=== PATIENT | female | born 1940 | race Caucasian/White ===

== ENCOUNTER → 2017-07-03 11:15 | Outpatient (CLI) | payer MEDICARE, SELFPAY ==
--- NOTE | 2017-07-03 11:18 | XR_ITS ---
XR foot wt bearing RT 3V HISTORY: Right foot pain ITS.REASON: arthritis,foot pain ORDERING PHYSICIAN: Lisa Smith DPM PATIENT AGE: 77 years COMPARISON: None FINDINGS: No fracture or dislocation. No lytic or blastic change. There is normal mineralization.. The joint spaces are well-preserved. No significant degenerative/arthritic changes. No erosive changes evident. Mild hypertrophic changes along the dorsal aspect of the midfoot . There are osteoarthritic changes of the navicular cuneiform and the second cuneiform metatarsal joint. IMPRESSION: Mid foot arthritic change
--- NOTE | 2017-07-03 11:18 | XR_ITS ---
XR foot wt bearing LT 3V HISTORY: ITS.REASON: arthritis, foot pain ORDERING PHYSICIAN: Lisa Smith DPM PATIENT AGE: 77 years FINDINGS: No obvious fracture or dislocation. There is mild cortical thickening involving the shaft of the fourth metatarsal which could be related to old fracture. Mild bony hypertrophic changes are present involving the mid foot with osteoarthritic change of the navicular cuneiform and tarsal metatarsal junction of the second cuneiform. There is mild pes planus IMPRESSION: 1. Cortical thickening of the fourth metatarsal consistent with old fracture. 2. 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
== END ==
PROVIDERS: PCP Family Medicine; Visit Provider Podiatrist
DX: M79.672 Pain in left foot (principal); M79.671 Pain in right foot
CPT/HCPCS: 73630

== ENCOUNTER → 2017-07-10 15:34 | Outpatient (CLI) | payer MEDICARE, SELFPAY ==
[2017-07-10 15:47] LABS: Microscopic, Urine URINE MICROSCOPIC (MICROSCOPIC)
[2017-07-10 15:58] LABS: Basophils % 0.6 % (0.1-2.0); Eosinophils # 0.2 K/mm3 (0.0-0.4); Eosinophils % 4.3 % (0.1-12.0); Hematocrit 39.9 % (37.0-47.0); Hemoglobin 13.5 g/dL (12.2-16.2); Lymphocytes # 1.7 K/mm3 (0.7-4.5); Lymphocytes % 30.8 K/mm3 (10-50); Mean Corpuscular HGB Conc 33.9 g/dL (31.8-35.4); Mean Corpuscular Hemoglobin 29.4 pg (27.0-31.2); Mean Corpuscular Volume 86.7 fl (81-99); Mean Platelet Volume 8.4 fl (7.4-10.4); Monocytes # 0.3 K/mm3 (0.1-1.0); Monocytes % 5.5 % (1.7-9.3); Neutrophils # 3.2 K/mm3 (1.8-7.8); Neutrophils % 58.8 % (37.0-80.0); Platelet Count 209 K/mm3 (142-424); Red Cell Distribution Width 13.5 % (11.5-17.5); White Blood Count 5.5 K/mm3 (4.8-10.8)
[2017-07-10 16:09] LABS: Activated Partial Thrombo Time 25.3 seconds (23.6-34.0); INR 0.97 (0.9-1.1); Prothrombin Time 10.5 seconds (9.4-11.8)
[2017-07-10 16:34] LABS: Appearance,Urine CLEAR (Clear); Bilirubin,Urine Negative (Negative); Blood, Urine Negative (Negative); Color,Urine YELLOW (Yellow); Glucose,Urine (UA) Negative (Negative); Ketones,Urine Negative (Negative); Leukocyte Esterase,Urine TRACE (Negative); Nitrate,Urine Negative (Negative); Protein,Urine Negative (Negative); Specific Gravity, Urine <= 1.005 (1.005-1.030); Urobilinogen,Urine 0.2 EU/dl (0.2)
[2017-07-10 16:37] LABS: Hemoglobin A1C 5.4 % (0.0-7.0)
[2017-07-10 16:57] LABS: Bacteria,Urine Trace /lpf; RBC,Urine Occasional #/hpf (0-3)
[2017-07-10 17:06] LABS: Anion Gap 12.2 mEq/L (5-15); Blood Urea Nitrogen 18 mg/dL (7-18); Carbon Dioxide 27 mmol/L (21.0-32.0); Chloride 107 mmol/L (98-107); Estimated Glomerular Filt Rate 69 ml/min (>60); GFR (African American) 84 ML/MIN (>60); Glucose 91 mg/dL (74-106); Potassium 4.2 mmoL/L (3.5-5.1); Sodium 142 mmol/L (136-145)
== END ==
PROVIDERS: PCP Family Medicine; Visit Provider Family Medicine
DX: Z79.899 Other long term (current) drug therapy; Z01.818 Encounter for other preprocedural examination
CPT/HCPCS: 36415; 80048; 81001; 83036; 85025; 85610; 85730; 93005

== ENCOUNTER → 2017-07-12 16:20 | Outpatient (CLI) | payer MEDICARE, SELFPAY ==
--- NOTE | 2017-07-12 16:29 | XR_ITS ---
XR chest 2V HISTORY: ITS.REASON: PRE OP ORDERING PHYSICIAN: Rene Noble MD PATIENT AGE: 77 years COMPARISON: 03/03/2008 FINDINGS: There is borderline cardiomegaly without failure. Lungs are clear. There are degenerative changes in the thoracic spine. IMPRESSION: Borderline cardiomegaly otherwise negative
== END ==
PROVIDERS: PCP Family Medicine; Visit Provider Family Medicine
DX: Z01.818 Encounter for other preprocedural examination (principal)
CPT/HCPCS: 71046

== ENCOUNTER → 2018-06-14 12:40 | Outpatient (CLI) | payer MEDICARE, SELFPAY ==
--- NOTE | 2018-06-14 12:45 | XR_ITS ---
XR hand LT min 3V HISTORY: Pain ITS.REASON: ap, lateral, oblique ORDERING PHYSICIAN: Lara Avery MD PATIENT AGE: 78 years COMPARISON: None FINDINGS: There are mild osteoarthritic changes at the scaphotrapezium joint and the first metacarpal carpal joint as well as the first interphalangeal joint. Minimal periarticular calcification is present laterally at these third metacarpophalangeal joint. No bony erosive process. No fracture or dislocation. IMPRESSION: Mild osteoarthritic changes as described above
--- NOTE | 2018-06-14 12:45 | XR_ITS ---
XR hand RT min 3V HISTORY: Pain ITS.REASON: AP, lateral, oblique ORDERING PHYSICIAN: Lara Avery MD PATIENT AGE: 78 years COMPARISON: None FINDINGS: Osteoarthritic change involves the scaphotrapezium joint, first metacarpal carpal joint, first metacarpophalangeal joint, first interphalangeal joint, second DIP and second metacarpophalangeal joint. No erosive change. No fracture or dislocation. IMPRESSION: Mild osteoarthritis
== END ==
PROVIDERS: PCP Family Medicine; Visit Provider Orthopaedic Surgery
DX: M79.641 Pain in right hand (principal); M79.642 Pain in left hand
CPT/HCPCS: 73130

== ENCOUNTER 2018-08-02 17:13 | Observation (INO) ==
--- NOTE | 2018-08-02 17:32 | Emergency Department Note ---
ED Disposition Clinical Impression: Chest pain Qualifiers: Chest pain type: precordial pain Qualified Code(s): R07.2 - Precordial pain Disposition: Admitted as Observation Condition on Discharge: Good Referrals: Provider,Referral, [Referring] - - Critical Care Critical Care Time: No Attestation: On 08/02/18, the high probability of a clinically significant, sudden or life threatening deterioration of the following system(s) required my full and direct attention, intervention and personal management. The time I documented below is in addition to time spent performing reported procedures but includes the following listed in this critical care notation. Medical Decision Making - Medical Records Medical records reviewed: Yes: I reviewed the patient's medical records. - Sergio Inquiry Pt receiving controlled substance: No Vital Signs: 08/02/18 17:13 08/02/18 17:35 08/02/18 18:02 Temperature 99.2 F Temperature Source Oral Pulse Rate 84 Pulse Rate [Apical] 90 87 Respiratory Rate 18 Blood Pressure [Right Arm] 128/77 128/77 Blood Pressure Mean [Right Arm] 94 94 Blood Pressure Source [Right Arm] Automatic Cuff Automatic Cuff Blood Pressure Position [Right Arm] Sitting Sitting 02 Sat by Pulse Oximetry 97 95 Oxygen Delivery Method Room Air Room Air 08/02/18 19:49 Temperature Temperature Source Pulse Rate Pulse Rate [Apical] 80 Respiratory Rate 20 Blood Pressure [Right Arm] 98/55 L Blood Pressure Mean [Right Arm] 69 Blood Pressure Source [Right Arm] Automatic Cuff Blood Pressure Position [Right Arm] Sitting 02 Sat by Pulse Oximetry 97 Oxygen Delivery Method - Lab Data Lab results reviewed: Yes: I reviewed the patient's lab results. Lab Results 08/02/18 17:30: WBC 6.1, RBC 4.16 L, Hgb 12.3, Hct 35.1 L, MCV 84.4, MCH 29.7, MCHC 35.1, RDW 14.6, Plt Count 213, MPV 8.2, Neut % (Auto) 65.5, Lymph % (Auto) 24.7, [place] % (Auto) 5.8, Eos % (Auto) 3.9, Baso % (Auto) 0.1, Neut # (Auto) 4.0, Lymph # (Auto) 1.5, [place] # (Auto) 0.4, Eos # (Auto) 0.2, Baso # (Auto) 0.0 08/02/18 17:30: Sodium 141, Potassium 3.5, Chloride 105, Carbon Dioxide 26, Anion Gap 13.5, BUN 25 H, Creatinine 1.10 H, Estimated Creat Clear 46, Estimated GFR 48 L, Est GFR ( Amer) 58 L, Glucose 132 H, Calcium 8.4 L, Troponin I < 0.02 08/02/18 17:30: D-Dimer 572 H* 08/02/18 17:30: Lipase 236 08/02/18 18:00: Urine Color Yellow, Urine Appearance Clear, Urine pH 6.0, Ur Specific [place] <= 1.005, Urine Protein Negative, Urine Glucose (UA) Negative, Urine Ketones Negative, Urine Blood Negative, Urine Nitrate Negative, Urine Bilirubin Negative, Urine Urobilinogen 0.2, Ur Leukocyte Esterase Trace, Urine WBC 3-5, Ur Squamous Epith Cells 3-5, Amorphous Sediment Trace 08/02/18 18:09: Lactate 1.2 Result diagrams: 08/02/18 17:30 08/02/18 17:30 Orders (Tests/Meds): ED MEDICATIONS Generic Name Dose Route Start Last Admin Trade Name Freq PRN Reason Stop Dose Admin Sodium Chloride 1,000 mls @ 999 mls/hr 08/02/18 18:30 08/02/18 18:53 Sod Chlor 0.9% 1000ml Bag IV 08/02/18 19:30 999 mls/hr .[id number] GERONIMO Administration Discontinued Medications Generic Name Dose Route Start Last Admin Trade Name Freq PRN Reason Stop Dose Admin Albuterol/Ipratropium 3 ml 08/02/18 17:33 08/02/18 17:44 Duoneb 3ml Neb IH 08/02/18 17:34 3 ml ONCE ONE Administration Ioversol 70 ml 08/02/18 19:09 08/02/18 19:10 Rad-Optiray 350 100ml Vial IV 08/02/18 19:10 70 ml ONCE ONE Administration Protocol Sodium Chloride 40 ml 08/02/18 19:09 08/02/18 19:10 Rad-Ns 50ml Vial IV 08/02/18 19:10 40 ml ONCE ONE Administration Sodium Chloride 10 ml 08/02/18 19:09 08/02/18 19:10 Rad-Saline Flush 10ml Syringe IV 08/02/18 19:10 10 ml ONCE ONE Administration ORDERS Category Date Time Status CTA Chest [CT angio chest] Stat Cat Scan 08/02/18 18:25 Taken Blood Culture Stat Micro 08/02/18 18:15 Received - CT Data CT Scan: Chest Time Received: 19:55 (no pe) ED CT Reviewed: Yes: I have viewed the radiologist's interpretation Preliminary Findings: No Infiltrates Seen - ECG Data Tracing #1 I reviewed this ECG and interpreted as documented below: Normal Sinus Rhythm: Yes (no stemi) Medical Decision Narrative: care to Dr Decker at 20:00, admit d/w Dr Albrecht for Hector at 20:00 General Adult HPI - General Chief complaint: Shortness of Breath/Dyspnea Stated complaint: weakness, cough, SOA Time Seen by Provider: 08/02/18 17:29 Mode of Arrival: Ambulatory Source of Information: Patient Limitations: No Limitations Description of Symptoms (Recalled from ER Triage Doc. by RN): Pt reports dry cough, "hard to breathe", chest pressure and weakness x2 days. Pt reports cough is non-productive, denies fever. - History of Present Illness HPI narrative: mild to mod off and on short of breath and cough for 2 days w/ chest pain pressure nonrad, no fever, no injury, no hx [place] - Related Data Home Medications Medication Instructions Recorded Confirmed amlodipine 10 mg tablet 10 mg PO DAILY 90 Days 07/03/17 08/02/18 celecoxib 200 mg capsule 200 mg PO DAILY 90 Days 07/03/17 08/02/18 lisinopril 20 mg tablet 20 mg PO DAILY 90 Days 07/03/17 08/02/18 Sucralfate [Sucralfate 1gm 1 gm PO ACHS 08/02/18 08/02/18 Tab] Allergies Allergy/AdvReac Type Severity Reaction Status Date / Time No Known Allergies Allergy Verified 06/14/18 13:09 [facility] History - Hepatitis A Screen Drug use history?: No High risk sexual behaviors?: No History of sexually transmitted infection?: No Currently employed?: No Childcare worker?: No Do you have indoor plumbing?: Yes Do you have electricity?: Yes Attestation statement:: This patient has been screened for Hepatitis A risk factors. Medical History: Reports:: Hypertension Denies:: Asthma, Cancer, Chronic Obstructive Pulmonary Disease (COPD), Diabetes Mellitus Type 1, Diabetes Mellitus Type 2, Hyperlipidemia Laterality Cases: Right: Partial Knee Replacement Other Surgeries: Yes: Cancer Surgery, Other Amputation: No Fractures: No Comment: Left foot, cyst from spine removed - Social History Smoking Status: Never smoker # Packs/Day (cigarettes): 0 #Yrs smoked (if former smoker): 0 Alcohol Intake: never Alcohol Intake Frequency:: other Substance Use Type: denies use Occupational Status: retired Housing: house Household Members: spouse - Psychiatric History Expresses thoughts of harming self/others: None Suicide Plan Description: No Plan Family Hx:: Cancer, Diabetes ROS Obtained: Yes Systems reviewed as appropriate & no additional complaints - Constitutional Constitutional: Denies fever(s) - Eyes Eyes: Denies change in vision - ENT Ears, Nose, Mouth, and Throat: Denies nasal congestion - Cardiovascular Cardiovascular: Reports chest pain - Respiratory Respiratory: Yes cough, Yes dyspnea - Gastrointestinal Gastrointestingal: Denies: abdominal pain - Musculoskeletal Musculoskeletal: Denies back pain - Integumentary/Breasts Skin/Breast: Denies rash - Neurologic Neurologic: Denies dizziness Physical Exam - General General appearance: alert - Head Head exam: atraumatic - Eye Eye exam: Present: normal appearance - ENT ENT exam: Present: normal exam - Neck Neck exam: Present: normal inspection - Chest Chest inspection: Present: normal inspection - Respiratory Respiratory exam: Present: wheezes. Absent: stridor - Cardiovascular Cardiovascular exam: Present: regular rate, normal rhythm - Abdominal Exam Abdominal exam: Present: soft. Absent: tenderness - Extremities Exam Extremities exam: Absent: pedal edema - Back Exam Back exam: Absent: vertebral tenderness - Neurological Exam Neurological exam: Present: alert, oriented X3 - Psychiatric Psychiatric exam: Present: normal affect, normal mood - Skin Skin exam: Present: warm, dry
[2018-08-02 17:47] LABS: Basophils % 0.1 % (0.1-2.0); Eosinophils # 0.2 K/mm3 (0.0-0.4); Eosinophils % 3.9 % (0.1-12.0); Hematocrit 35.1 % (37.0-47.0); Hemoglobin 12.3 g/dL (12.2-16.2); Lymphocytes # 1.5 K/mm3 (0.7-4.5); Lymphocytes % 24.7 % (10-50); Mean Corpuscular HGB Conc 35.1 g/dL (31.8-35.4); Mean Corpuscular Hemoglobin 29.7 pg (27.0-31.2); Mean Corpuscular Volume 84.4 fl (81-99); Mean Platelet Volume 8.2 fl (7.4-10.4); Monocytes # 0.4 K/mm3 (0.1-1.0); Monocytes % 5.8 % (1.7-9.3); Neutrophils % 65.5 % (37.0-80.0); Platelet Count 213 K/mm3 (142-424); Red Blood Count 4.16 M/mm3 (4.20-5.40); Red Cell Distribution Width 14.6 % (11.5-17.5); White Blood Count 6.1 K/mm3 (4.8-10.8)
[2018-08-02 18:01] LABS: Anion Gap 13.5 mEq/L (5-15); Blood Urea Nitrogen 25 mg/dL (7-18); Calcium 8.4 mg/dL (8.5-10.1); Carbon Dioxide 26 mmol/L (21.0-32.0); Chloride 105 mmol/L (98-107); Glucose 132 mg/dL (74-106); Potassium 3.5 mmoL/L (3.5-5.1); Sodium 141 mmol/L (136-145)
[2018-08-02 19:26] LABS: Microscopic, Urine URINE MICROSCOPIC (MICROSCOPIC)
[2018-08-02 19:32] LABS: Appearance,Urine CLEAR (Clear); Bilirubin,Urine Negative (Negative); Blood, Urine Negative (Negative); Color,Urine YELLOW (Yellow); Glucose,Urine (UA) Negative (Negative); Ketones,Urine Negative (Negative); Leukocyte Esterase,Urine TRACE (Negative); Protein,Urine Negative (Negative); Specific Gravity, Urine <= 1.005 (1.005-1.030); Urobilinogen,Urine 0.2 EU/dl (0.2)
[2018-08-02 19:35] LABS: Amorphous Sediment,Urine Trace /lpf
[2018-08-03 06:48] LABS: Basophils % 0.1 % (0.1-2.0); Eosinophils # 0.2 K/mm3 (0.0-0.4); Eosinophils % 5.8 % (0.1-12.0); Hematocrit 31.5 % (37.0-47.0); Lymphocytes # 1.1 K/mm3 (0.7-4.5); Lymphocytes % 32.8 % (10-50); Mean Corpuscular HGB Conc 34.6 g/dL (31.8-35.4); Mean Corpuscular Hemoglobin 29.4 pg (27.0-31.2); Mean Platelet Volume 8.3 fl (7.4-10.4); Monocytes # 0.2 K/mm3 (0.1-1.0); Monocytes % 6.7 % (1.7-9.3); Neutrophils # 1.8 K/mm3 (1.8-7.8); Neutrophils % 54.7 % (37.0-80.0); Platelet Count 183 K/mm3 (142-424); Red Cell Distribution Width 14.7 % (11.5-17.5); White Blood Count 3.2 K/mm3 (4.8-10.8)
[2018-08-03 06:51] LABS: Anion Gap 13.7 mEq/L (5-15); Calcium 7.8 mg/dL (8.5-10.1); Potassium 3.7 mmoL/L (3.5-5.1)
--- NOTE | 2018-08-03 08:58 | Pharmacy Consult Notes ---
[facility] Pharm[facility] VTE Monitoring - Patient Demographics Admission date: 08/02/18 Report Date: 08/03/18 Time: 08:58 Allergies/Adverse Reactions: Patient Allergies No Known Allergies Allergy (Verified 06/14/18 13:09) Height: 1.52 m Weight: 71.668 kg Patient Problems: Current Active Problems (Updated 08/02/18 @ 19:57 by Fazal Damon MD) Chest pain (Acute) - VTE Risk Labs: VTE Related Lab Results Hgb 11.0 g/dL (12.2-16.2) L D 08/03/18 06:18 Hct 31.5 % (37.0-47.0) L 08/03/18 06:18 Plt Count 183 K/mm3 (142-424) 08/03/18 06:18 BUN 15 mg/dL (7-18) D 08/03/18 06:18 Creatinine 0.73 mg/dL (0.55-1.02) D 08/03/18 06:18 Estimated Creat Clear 51 mL/min (50-200) 08/03/18 06:18 Was VTE Risk Assessment Performed: Yes VTE Score: 5 VTE Risk Level: Low Risk - Prophylaxis VTE Prophylaxis Ordered?: Yes Types of VTE Prophylaxis: TEDS Knee High Location of Applied Device: Bilateral Lower Extremeties
--- NOTE | 2018-08-03 10:23 | H&P/Discharge Summary ---
General - General Admission date:: 08/02/18 Discharge date: 08/03/18 *Admission Date: 08/02/18 *Chief complaint: chest pain *History of present illness: 78 year old female with a history of HTN and GERD, came to [facility] ER yesterday afternoon with complaints of anterior chest pain and racing heart. Patient states she spent the day pulling weeds in her garden and got hot and felt dehydrated. She had chest pain associated with some palpitations. She states the pain was not related to exertion but was always worse when she exhaled. She dis have a dry cough and felt like she wheezed a few times. She does have a hi story of allergic rhinitis and had taken an OTC antihistamine the day before due to some nasal congestion. She denies fever and chills and lower extremity edema. [facility] History Medical History: Reports:: Gastroesophageal Reflux Disease(GERD), Hypertension Denies:: Asthma, Cancer, Chronic Obstructive Pulmonary Disease (COPD), Diabetes Mellitus Type 1, Diabetes Mellitus Type 2, Hyperlipidemia, MRSA *Have you ever received a pneumonia vaccine?: No *Have you received a flu vaccine this season?: Yes Other Medical History: Reports: Arthritis (knee), Other (peptic ulcer disease) Laterality Cases: Right: Partial Knee Replacement Other Surgeries: Yes: Cancer Surgery, Colonoscopy, Tubal Ligation, Other (L FOOT SX TO REMOVE "BONE SPURS") Amputation: No Fractures: No - *Social History Educational Level: Completed High School Smoking Status: Never smoker # Packs/Day (cigarettes): 0 #Yrs smoked (if former smoker): 0 Alcohol Intake: never Alcohol Intake Frequency:: other Substance Use Type: denies use *Occupational Status:: retired Housing: house Household Members: spouse *Travel in the last 8 weeks: None - Psychiatric History Expresses thoughts of harming self/others: None Suicide Plan Description: No Plan Family Hx:: Cancer, Diabetes Review of Systems - Constitutional Denies chills, Denies fever(s) - Eyes Denies blurry vision - ENT Reports nasal congestion - *Gastrointestinal Denies abdominal pain - *Genitourinary Denies painful urination - *Musculoskeletal Reports muscle cramps, Denies back pain - Integumentary/Breasts Denies rash - *Neurologic Denies dizziness - Psychiatric Denies abnormal sleep pattern - Hematologic/Lymphatic Denies easy bleeding Exam Vital signs and Labs for Last 24 Hours: Temp Pulse Resp BP Pulse Ox 98.2 F 74 20 134/65 95 08/03/18 08:00 08/03/18 08:00 08/03/18 08:00 08/03/18 08:00 08/03/18 08:00 Laboratory Results - last 24 hr 08/02/18 17:30: WBC 6.1, RBC 4.16 L, Hgb 12.3, Hct 35.1 L, MCV 84.4, MCH 29.7, MCHC 35.1, RDW 14.6, Plt Count 213, MPV 8.2, Neut % (Auto) 65.5, Lymph % (Auto) 24.7, [place] % (Auto) 5.8, Eos % (Auto) 3.9, Baso % (Auto) 0.1, Neut # (Auto) 4.0, Lymph # (Auto) 1.5, [place] # (Auto) 0.4, Eos # (Auto) 0.2, Baso # (Auto) 0.0 08/02/18 17:30: Sodium 141, Potassium 3.5, Chloride 105, Carbon Dioxide 26, Anion Gap 13.5, BUN 25 H, Creatinine 1.10 H, Estimated Creat Clear 46, Estimated GFR 48 L, Est GFR ( Amer) 58 L, Glucose 132 H, Calcium 8.4 L, Troponin I < 0.02 08/02/18 17:30: D-Dimer 572 H* 08/02/18 17:30: Lipase 236 08/02/18 18:00: Urine Color Yellow, Urine Appearance Clear, Urine pH 6.0, Ur Specific [place] <= 1.005, Urine Protein Negative, Urine Glucose (UA) Negative, Urine Ketones Negative, Urine Blood Negative, Urine Nitrate Negative, Urine Bilirubin Negative, Urine Urobilinogen 0.2, Ur Leukocyte Esterase Trace, Urine WBC 3-5, Ur Squamous Epith Cells 3-5, Amorphous Sediment Trace 08/02/18 18:09: Lactate 1.2 08/02/18 22:48: Troponin I < 0.02 08/03/18 01:45: Troponin I < 0.02 08/03/18 06:18: WBC 3.2 L D, RBC 3.70 L, Hgb 11.0 L D, Hct 31.5 L, MCV 85.0, MCH 29.4, MCHC 34.6, RDW 14.7, Plt Count 183, MPV 8.3, Neut % (Auto) 54.7, Lymph % (Auto) 32.8, [place] % (Auto) 6.7, Eos % (Auto) 5.8, Baso % (Auto) 0.1, Neut # (Auto) 1.8, Lymph # (Auto) 1.1, [place] # (Auto) 0.2, Eos # (Auto) 0.2, Baso # (Auto) 0.0 08/03/18 06:18: Sodium 144, Potassium 3.7, Chloride 110 H, Carbon Dioxide 24, Anion Gap 13.7, BUN 15 D, Creatinine 0.73 D, Estimated Creat Clear 51, Estimated GFR 77, Est GFR ( Amer) 93 D, Glucose 89 D, Calcium 7.8 L Vital Signs - 24 hr 08/02/18 17:13 08/02/18 17:35 08/02/18 18:02 Temperature 99.2 F Pulse Rate 84 Pulse Rate [Apical] 90 87 Pulse Rate [Left Radial] Respiratory Rate 18 Blood Pressure Blood Pressure [Right Arm] 128/77 128/77 02 Sat by Pulse Oximetry 97 95 08/02/18 19:49 08/02/18 21:00 08/02/18 21:43 Temperature 98.0 F 98.1 F Pulse Rate Pulse Rate [Apical] 80 67 Pulse Rate [Left Radial] 69 Respiratory Rate 20 18 18 Blood Pressure Blood Pressure [Right Arm] 98/55 L 130/75 129/68 02 Sat by Pulse Oximetry 97 97 95 08/02/18 21:46 08/02/18 21:53 08/03/18 00:00 Temperature 98.0 F 98.3 F Pulse Rate 86 100 H 80 Pulse Rate [Apical] Pulse Rate [Left Radial] 73 Respiratory Rate 16 18 Blood Pressure 126/74 Blood Pressure [Right Arm] 107/52 L 02 Sat by Pulse Oximetry 96 08/03/18 04:00 08/03/18 08:00 Temperature 97.8 F 98.2 F Pulse Rate 50 L Pulse Rate [Apical] Pulse Rate [Left Radial] 65 74 Respiratory Rate 18 20 Blood Pressure Blood Pressure [Right Arm] 132/59 L 134/65 02 Sat by Pulse Oximetry 96 95 I & O for Last 24 hours: Intake & Output 07/31/18 08/01/18 08/02/18 08/03/18 23:59 23:59 23:59 23:59 Intake Total 999 / 999 557 / 557 Balance 999 / 999 557 / 557 Weight 157 lb 4 oz 158 lb Radiology Reports for the Last 24 Hours: CXR and CTA of chest reviewed, no acute pathology noted - Constitutional no acute distress - *Routine HEENT Exam Head: Present: normocephalic Eye: Present: EOMI, PERRL ENT: Present: mucous membranes moist - *Routine Neck Exam Present: supple. Absent: lymphadenopathy - *Routine Respiratory Exam Present: CTA bilaterally - *Routine Cardiovascular Exam Present: RRR - *Routine Abdominal Exam Present: soft, normoactive bowel sounds. Absent: tenderness - *Routine Extremities Exam Absent: cyanosis, clubbing, edema - *Routine Skin Exam Present: warm. Absent: rash - *Routine Neurological Exam Present: alert, oriented X3 Hospital Course Hospital Course: Patient was admitted for further evaluation of her chest pain. She ruled out for DC by enzymes. CTA of chest showed no PE or other chest pathology. Her symptoms actually improved after a neb treatment. She is tolerating a regular diet and is pain free now and is anxious to go home. Plan to treat her with albuterol as an outpatient. Patient will call with any new symptoms prior to her scheduled appt. on August 20. DS: Diagnosis - Discharge Diagnosis (1) Dehydration Status: Acute (2) HTN (hypertension) Status: Acute (3) GERD (gastroesophageal reflux disease) Status: Acute (4) Bronchospasm Status: Acute (5) Chest pain Status: Acute Discharge Medications - Medications for Discharge Home Medication List at Discharge: New Albuterol Sulfate [Albuterol HFA Inhaler] 1 - 2 puffs IH Q4-6H PRN #1 inh PRN Reason: Shortness Of Breath Or Wheezing Continued lisinopril 20 mg tablet 20 mg PO DAILY 90 Days celecoxib 200 mg capsule 200 mg PO DAILY 90 Days amlodipine 10 mg tablet 10 mg PO DAILY 90 Days Sucralfate [Sucralfate 1gm Tab] 1 gm PO ACHS Warren-3/Dha/Epa/Fish Oil [Fish Oil Conc 1,000 mg Softgel] 2,000 mg PO DAILY Disposition Disposition: Home, Self-Care
== END 2018-08-03 11:00 | disposition home or self-care (01) ==
LOC: 2ND 17:13 → ER 17:13 → 2ND 21:49
PROVIDERS: ADMIT Family Medicine; ATTEND Family Medicine
DX: I10 Essential (primary) hypertension; J98.01 Acute bronchospasm; E86.0 Dehydration; K21.9 Gastro-esophageal reflux disease without esophagitis
CPT/HCPCS: 36415; 71010; 71045; 71275; 80048; 81001; 83605; 83690; 84484; 85025; 85378; 87040; 93005; 96365; 99284; G0378; Q9967

== ENCOUNTER → 2018-11-19 15:02 | Outpatient (CLI) | payer MEDICARE, SELFPAY ==
--- NOTE | 2018-11-19 15:07 | XR_ITS ---
PROCEDURE: XR SHOULDER RT MIN 2V CLINICAL INDICATION: RT SHOULDER PAIN COMPARISON: [facility] CT angio chest from 08/02/2018 FINDINGS: The glenohumeral joint has an unremarkable appearance. There are mild osteoarthritic changes of the acromioclavicular joint. No fracture or dislocation. No significant subacromial stenosis. IMPRESSION: Mild degenerative changes acromioclavicular joint otherwise negative Dictated by: Db Welsh MD 11/19/2018 15:32 Electronically signed by Db Welsh MD in [place] 11/19/2018 15:33
== END ==
PROVIDERS: PCP Family Medicine; Visit Provider Family Medicine
DX: M25.511 Pain in right shoulder (principal)
CPT/HCPCS: 73030

== ENCOUNTER → 2019-01-08 14:03 | Outpatient (CLI) | payer MEDICARE, SELFPAY ==
--- NOTE | 2019-01-08 14:04 | MR_ITS ---
PROCEDURE: MR SHOULDER RT WO CON CLINICAL INDICATION: RIGHT SHOULDER PAIN COMPARISON: XR SHOULDER RT MIN 2V from 11/19/2018 TECHNIQUE: Routine multiplanar multi echo sequences are performed without gadolinium enhancement. FINDINGS: There is moderate acromioclavicular arthropathy. No significant subacromial stenosis. Fluid is present in the subacromial and subdeltoid region. There is a complete tear involving the supraspinatus tendon distally with mild retraction of the musculotendinous fibers. Partial tear is present of the infraspinatus tendon. There are some intact fibers however present. The teres minor and subscapularis tendons are unremarkable. No labral tear apparent. There is a medium size shoulder joint effusion. There is fluid present in the bicipital tendon sheath. A normal long head of the biceps tendon is not identified. A normal bicipital tendon is not identified consistent with tear of the bicipital tendon. IMPRESSION: 1. Complete tear of the supraspinatus tendon with retraction of the musculotendinous fibers. 2. Partial tear of the infraspinatus tendon. 3. Empty bicipital tendon sheath consistent with tear of the bicipital tendon 4. Shoulder joint effusion with osteoarthritis of the acromioclavicular joint. Dictated by: Db Welsh MD 01/10/2019 11:36 Electronically signed by Db Welsh MD in [place] 01/10/2019 11:36
== END ==
PROVIDERS: PCP Family Medicine; Visit Provider Family Medicine
DX: M25.511 Pain in right shoulder (principal)
CPT/HCPCS: 73221

== ENCOUNTER → 2019-01-21 10:57 | Outpatient (POV) | payer MEDICARE, SELFPAY | PROVIDERS: Visit Provider Otolaryngology | DX: Z00.00 Encounter for general adult medical examination without abnormal findings (principal) ==

== ENCOUNTER → 2019-09-15 16:05 | Outpatient (CLI) | payer MEDICARE, SELFPAY ==
--- NOTE | 2019-09-15 | XR_ITS ---
PROCEDURE: XR LUMBAR SPINE MIN 4V CLINICAL INDICATION: LOW BACK PAIN COMPARISON: [facility] CT angio chest from 08/02/2018 FINDINGS: There is degenerative disc disease the at T12-L1 and L1-L2. There is 6 mm anterolisthesis of L4 on L5. Degenerative disc disease also present at L3-L4 and L4-5 and L5-S1. 3 mm anterolisthesis L5 on S1. Facet arthritic changes are present at L4-L5 and S1. No definite acute fracture or dislocation. IMPRESSION: Multilevel lower thoracic and lumbar spondylosis as detailed above Dictated by: Db Welsh MD 09/15/2019 16:49 Electronically signed by Db Welsh MD in [place] 09/15/2019 16:49
== END ==
PROVIDERS: PCP Family Medicine; Visit Provider Family Medicine
DX: M54.5 Low back pain (principal)
CPT/HCPCS: 72110

== ENCOUNTER → 2019-09-25 08:38 | Outpatient (CLI) | payer MEDICARE, SELFPAY ==
--- NOTE | 2019-09-25 08:44 | US_ITS ---
PROCEDURE: US ABDOMEN LIMITED CLINICAL INDICATION: ABD PAIN Right upper quadrant pain COMPARISON: No exams were available for comparison FINDINGS: PANCREAS: Unremarkable. No obvious mass or abnormal fluid collection. No ductal dilatation LIVER: No focal liver lesions demonstrated. Homogeneous echogenicity. No intrahepatic biliary ductal dilatation evident. There is appropriate direction of blood flow within a non dilated portal vein RIGHT KIDNEY: 2.6 cm cyst noted in the mid aspect of the right kidney normal size and echogenicity. No hydronephrosis GALLBLADDER: No gallstones, gallbladder wall thickening, pericholecystic fluid, or biliary dilatation. Common bile duct measures 3 mm IMPRESSION: Small right renal cyst otherwise unremarkable right upper quadrant ultrasound Dictated by: Db Welsh MD 09/25/2019 16:55 Electronically signed by Db Welsh MD in [place] 09/25/2019 16:55
== END ==
PROVIDERS: PCP Family Medicine; Visit Provider Family Medicine
DX: R10.11 Right upper quadrant pain (principal)
CPT/HCPCS: 76705

== ENCOUNTER → 2019-10-02 14:38 | Outpatient (POV) | payer MEDICARE, SELFPAY ==
[2019-10-02 14:56] VITALS: BP 143/78; PULSE 79; RESP 18; O2SAT 98; BMI 31.6
--- NOTE | 2019-10-02 15:29 | HMH.PMCON ---
Assessment and Plan (1) Degenerative joint disease (DJD) of lumbar spine Current visit: Yes Status: Chronic Category: Medical Code(s): M47.816 - Spondylosis without myelopathy or radiculopathy, lumbar region (2) Facet arthropathy, lumbar Current visit: Yes Status: Chronic Category: Medical Code(s): M47.816 - Spondylosis without myelopathy or radiculopathy, lumbar region (3) Lumbar spondylosis Current visit: Yes Status: Chronic Category: Medical Code(s): M47.816 - Spondylosis without myelopathy or radiculopathy, lumbar region - Assessment and plan all Dx Assessment and Plan for all problems:: We will schedule the patient for medial branch block?facet joint injections at L4-L5 and L5-S1 bilaterally. Patient is not on any anticoagulation therapy. We will see her back in the clinic after her injections to reassess her symptoms. She has been instructed to contact clinic if she has any concerns before her next appointment. The patient and I specifically discussed risk factors for COVID19. These risks include, but are not limited to age greater than 60, heart or lung disease, diabetes, immunosuppression, and travel. We also discussed NSAIDs may worsen COVID19 infection or symptoms. Patient should not use NSAIDs to treat COVID19 signs or symptoms. Patient was also informed that any type of corticosteroid of any form (oral or injection) will decrease the patient's immune system response and may increase the likelihood of COVID19 infection [address] symptoms[address] Elizondo has reviewed this note and agrees with this plan of care. This note was dictated using voice recognition software and make contain errors or omissions. HPI - Data of Consult Patient: new to practice Consult date: 10/02/19 Requesting Physician: Le Sharma APRN Primary Care Provider: Rene Noble MD - Consult Narrative Reason for consult: Low back pain History of present illness: Ms. Ramirez is a 79 year old female presents today for consultation for low back pain. Patient says that she has had pain since 2004. She was managed by a pain management clinic in [facility] at that time. She says she did undergo medial branch blocks which only gave her relief for up to 2 weeks, up to 90%. She also underwent RFA which gave her more than a year of relief. She is here today because her pain has returned. Patient describes the pain as electrical shocklike sensation and to her low back area that is worse with leaning forward. She says that the pain is also worse on the right side, however, she is having pain on the left side as well. She has tried physical therapy in the past and continues with home stretching program and ice and heat therapies. CC: Le Sharma APRN [facility] History I have reviewed the patient's past medical history: Yes Medical History: Reports:: Gastroesophageal Reflux Disease(GERD), Hyperlipidemia, Hypertension Denies:: Asthma, Cancer, Chronic Obstructive Pulmonary Disease (COPD), Diabetes Mellitus Type 1, Diabetes Mellitus Type 2, MRSA *Have you ever received a pneumonia vaccine?: Yes *Have you received a flu vaccine this season?: Yes Other Medical History: Reports: Arthritis, Other Other Surgeries: Yes: Cancer Surgery, Colonoscopy, Tubal Ligation, Other Amputation: No Fractures: No - *Social History Smoking Status: Never smoker # Packs/Day (cigarettes): 0 #Yrs smoked (if former smoker): 0 Alcohol Intake: never Alcohol Intake Frequency:: other Substance Use Type: denies use *Occupational Status:: other Housing: house Household Members: other *Travel in the last 8 weeks: None Family Hx:: Unable to obtain Review of Systems - Review of Systems Review of Systems General: No recent weight changes, no fever, no sleep disturbances Respiratory: No cough, no shortness of air, no recurring pulmonary infections Cardiovascular/peripheral vascular: No chest pain, no palpitations, no edema, no shortness of vadim
== END ==
PROVIDERS: PCP Family Medicine; Visit Provider Clinical Nurse Specialist Family Health
DX: M47.816 Spondylosis without myelopathy or radiculopathy, lumbar region (principal)
CPT/HCPCS: 99202

== ENCOUNTER 2019-10-17 14:31 | Day surgery (SDC) | payer MEDICARE, SELFPAY ==
[2019-10-17 15:06] VITALS: BP 170/72; PULSE 78; RESP 18; TEMP 36.6; O2SAT 98; BMI 31.2
[2019-10-17 15:49] VITALS: BP 135/87; PULSE 85; RESP 18; O2SAT 98
--- NOTE | 2019-10-17 15:51 | HMH.PMPROC ---
- Procedure Date: 10/17/19 Time: 15:51 Anesthesiologist:: Arie Elizondo MD Complications:: None Pre-procedure Diagnosis:: Degenerative disc disease of lumbar spine with lumbar radiculopathy symptoms and facet arthropathy with lumbar spondylosis Post-procedure Diagnosis:: Same Indications for Procedure:: This patient is a pleasant 79-year-old white female who we have been treating for low back pain with lumbar spondylosis and facet arthropathy. Most of her pain is in the right hip and down the right leg however she is done well with previous radiofrequency ablation to the facet joints of L4-5 and L5-S1 previously. Her pain is just now starting to come back. We will do lumbar medial branch blocks of L4-5 and L5-S1 bilaterally today to see if this will give her relief of her pain symptoms. Procedure Details:: Lumbar medial branch block Informed consent was obtained and the risks and benefits of the procedure was explained to the patient. The back was prepped using ChloraPrep. The skin and subcutaneous tissues were anesthetized using lidocaine. I placed 22-gauge spinal needles into the facet joint/medial branches of L4-L5 and L5-S1 bilaterally. Needle placement was confirmed with dye. After this we injected 3 mL bupivacaine 0.25% and Depo-Medrol 20 mg into each facet joint/medial branch of L4-L5 and L5-S1 bilaterally. We used a total of 80 mg Depo-Medrol for both levels bilaterally. The patient tolerated the procedure well with no complications. Plan and Disposition:: We will follow-up with her in 2 weeks. Will reevaluate symptoms at that time. If this is successful we will plan on radiofrequency ablation to the facet joint/medial branches of L4-5 and L5-S1 bilaterally.
[2019-10-17 15:56] VITALS: BP 157/72; PULSE 77; RESP 20; O2SAT 98
== END 2019-10-17 15:57 | disposition home or self-care (01) ==
LOC: SC.PAINP 14:33
PROVIDERS: PCP Family Medicine; Visit Provider Anesthesiology
DX: M51.16 Intervertebral disc disorders with radiculopathy, lumbar region (principal); M12.88 Other specific arthropathies, not elsewhere classified, other specified site; M47.896 Other spondylosis, lumbar region; I10 Essential (primary) hypertension; K21.9 Gastro-esophageal reflux disease without esophagitis; E78.5 Hyperlipidemia, unspecified; Z79.51 Long term (current) use of inhaled steroids; Z79.899 Other long term (current) drug therapy
CPT/HCPCS: 64493; 64494; J1030; Q9966

== ENCOUNTER → 2019-11-13 08:50 | Outpatient (POV) | payer MEDICARE, SELFPAY ==
--- NOTE | 2019-11-13 09:35 | HMH.PAINSOAP ---
[facility] Pain Management SOAP Note Subjective:: Patient is a pleasant 79-year-old white female who presents today for follow-up after medial branch block facet joint injections. Patient is having pain that is worse upon rising from a chair. She says she has no pain when she is sitting. Upon rising from a chair she has burning and stinging that is worse into the low back and right hip as well as right lateral thigh area. She says that the pain does improve usually with walking, however, then the pain does worsen after prolonged walking. She says that she did not get any relief with the medial branch block/facet joint injections. She says she may have gotten up to 20% for a week. She did have an epidural in the past which gave her relief, however, she feels her pain is different at this time. Patient says she is having worsening right hip pain that is new onset for her. She does have notable tenderness over her right SI joint as well as her right hip. Rates her pain a 7 out of 10 with standing and a 0 out of 10 with sitting. Review of Systems General: No recent weight changes, no fever, no sleep disturbances Respiratory: No cough, no shortness of air, no recurring pulmonary infections Cardiovascular/peripheral vascular: No chest pain, no palpitations, no edema, no shortness of breath Gastrointestinal: No new onset incontinence, normal bowel movements reported Genitourinary: No new onset incontinence Musculoskeletal: Low back pain, right hip pain, right buttock pain, right leg pain Psychiatric: Normal mood/affect Neurological: [Denies weakness in extremities], [denies balance issues] Objective:: Physical exam General: Alert and oriented x3, no acute distress, pleasant and cooperative, [on room air] Lungs: Respirations even and unlabored, symmetrical chest expansion Eyes: PERRL Musculoskeletal: Flexion and extension of bar spine somewhat guarded secondary to pain, deep tendon reflexes normal, strength in upper and lower extremities [5/5], [abnormal gait noted] positive Taylor's test, positive Everton's test, positive distraction test Neurological: Speech clear, investigation specialist equal, no gross sensory deficit Assessment:: Sacroiliitis?right, trochanteric bursitis?right Plan:: We will schedule the patient for a right SI joint injection as well as a right trochanteric bursa injection. She is having tenderness over her right SI joint as well as her trochanteric bursa. We will see her back in the clinic after her injection to reassess her symptoms. She has been instructed to contact clinic if she has any concerns before her next appointment. Virus education patient Dr. Elizondo has reviewed this note and agrees with this plan of care. This note was dictated using voice recognition software and make contain errors or omissions. [facility] History I have reviewed the patient's past medical history: Yes Medical History: Reports:: Gastroesophageal Reflux Disease(GERD), Hyperlipidemia, Hypertension Denies:: Asthma, Cancer, Chronic Obstructive Pulmonary Disease (COPD), Diabetes Mellitus Type 1, Diabetes Mellitus Type 2, MRSA, Seizures *Have you ever received a pneumonia vaccine?: No *Have you received a flu vaccine this season?: No Other Medical History: Reports: Arthritis, Other Other Surgeries: Yes: Cancer Surgery, Colonoscopy, Tubal Ligation, Other Amputation: No Fractures: No - *Social History Smoking Status: Never smoker # Packs/Day (cigarettes): 0 #Yrs smoked (if former smoker): 0 Alcohol Intake: never Alcohol Intake Frequency:: other Substance Use Type: denies use *Occupational Status:: retired Housing: house Household Members: other *Travel in the last 8 weeks: None Family Hx:: Unable to obtain
[2019-11-13 09:46] VITALS: BP 164/85; PULSE 76; RESP 16; TEMP 36.3; O2SAT 92; BMI 31.2
== END ==
PROVIDERS: PCP Family Medicine; Visit Provider Clinical Nurse Specialist Family Health
DX: M46.1 Sacroiliitis, not elsewhere classified (principal)
CPT/HCPCS: 99212

== ENCOUNTER 2019-11-14 09:28 | Day surgery (SDC) | payer MEDICARE, SELFPAY ==
[2019-11-14 09:44] VITALS: BP 139/76; PULSE 73; RESP 17; TEMP 36.2; O2SAT 97; BMI 31.2
[2019-11-14 10:49] VITALS: BP 132/77; PULSE 85; RESP 18; O2SAT 98
--- NOTE | 2019-11-14 10:53 | HMH.PMPROC ---
- Procedure Date: 11/14/19 Time: 10:53 Anesthesiologist:: Arie Elizondo MD Complications:: None Pre-procedure Diagnosis:: Sacroiliitis and trochanteric bursitis Post-procedure Diagnosis:: Same Indications for Procedure:: This patient is a pleasant 79-year-old white female who is status post medial branch blocks. She does not get much relief from her medial branch blocks. Most of her pain is when getting up from a seated position radiating to the right hip and occasionally down the right leg. She is tender over the right SI joint. She is positive Everton's test on right side. She has a positive Yaritza test on right side. She is positive SI joint compression test on right side. She is also tender over the right trochanteric bursa. We will do a right SI joint injection right trochanteric bursa injection today to help her with her pain symptoms. Procedure Details:: Right SI joint injection under fluoroscopy Informed consent was obtained and the risks and benefits of the procedure was going to the patient. Patient was taken to the procedure room. Patient was placed prone on the procedure table. The right hip was prepped using ChloraPrep. The skin and subcutaneous tissues were anesthetized using lidocaine. I placed a 22-gauge spinal needle into the inferior aspect of the right SI joint. Needle placement was confirmed with dye. After this we injected 5 mL bupivacaine 0.25% and Depo-Medrol 40 mg into the right SI joint. The patient tolerated the procedure well with no complication. Right trochanteric bursa injection under fluoroscopy informed consent was obtained and the risk and benefits of the procedure was explained to the patient. The patient was taken to the procedure room. The right hip was prepped using ChloraPrep. The skin and subcutaneous tissues were anesthetized using lidocaine. I placed a 22-gauge spinal needle and advanced under fluoroscopic guidance until it contacted the right greater trochanter. Needle placement was confirmed with dye. After this I injected bupivacaine 0.25% 5 mL and Depo-Medrol 40 mg into the right trochanteric bursa. Patient tolerated the procedure well with no complications. Plan and Disposition:: We will follow-up with her in 2 weeks. Will reevaluate symptoms at that time. She may be a candidate for lumbar epidural steroid injection if she does not get relief from these injections.
[2019-11-14 10:59] VITALS: BP 146/76; PULSE 73; RESP 18; O2SAT 97
== END 2019-11-14 11:00 | disposition home or self-care (01) ==
LOC: SC.PAINP 09:31
PROVIDERS: PCP Family Medicine; Visit Provider Anesthesiology
DX: M46.1 Sacroiliitis, not elsewhere classified (principal); M70.61 Trochanteric bursitis, right hip; I10 Essential (primary) hypertension; K21.9 Gastro-esophageal reflux disease without esophagitis; Z82.49 Family history of ischemic heart disease and other diseases of the circulatory system
CPT/HCPCS: 20610; 27096; 77002; G0260; J1030; Q9966

== ENCOUNTER → 2019-12-08 09:07 | Outpatient (POV) | payer MEDICARE, SELFPAY ==
[2019-12-08 09:21] VITALS: BP 125/79; PULSE 88; RESP 18; TEMP 36.8; O2SAT 99; BMI 31.2
[2019-12-08 09:24] VITALS: BP 125/78; PULSE 74; RESP 18; BMI 31.2
--- NOTE | 2019-12-08 09:31 | HMH.PAINSOAP ---
[facility] Pain Management SOAP Note Subjective:: Patient is a pleasant 79-year-old white female who presents today for follow-up after right SI joint injection and a right trochanteric bursa injection. Patient says that she got approximately 100% relief to her right hip following her trochanteric bursa injection. She does complain now of right buttock pain. She says that the pain is constant and worse with sitting. She says that most of the pain in her low back and her hip is gone. She says it is a lingering pain in her right buttock . She does rate her pain a 0 out of 10 to her right hip and right low back. She rates her pain a 7 out of 10 to her right buttock. Review of Systems General: No recent weight changes, no fever, no sleep disturbances Respiratory: No cough, no shortness of air, no recurring pulmonary infections Cardiovascular/peripheral vascular: No chest pain, no palpitations, no edema, no shortness of breath Gastrointestinal: No new onset incontinence, normal bowel movements reported Genitourinary: No new onset incontinence Musculoskeletal: Right buttock pain Psychiatric: Normal mood/affect Neurological: [Denies weakness in extremities], [denies balance issues] Objective:: Physical exam General: Alert and oriented x3, no acute distress, pleasant and cooperative, [on room air] Lungs: Respirations even and unlabored, symmetrical chest expansion Eyes: PERRL Musculoskeletal: Flexion and extension of lumbar spine somewhat guarded secondary to pain, deep tendon reflexes normal, strength in upper and lower extremities [5/5], antalgic gait noted Neurological: Speech clear, trade specialist equal, no gross sensory deficit Assessment:: Piriformis syndrome Plan:: Patient did get relief with her trochanteric and right SI joint injection. She continues to have some right buttock pain. We will schedule her for a right piriformis injection to see if the patient gets relief. Patient has been instructed to contact clinic if she has any concerns for next appointment. The patient and I specifically discussed risk factors for COVID19. These risks include, but are not limited to age greater than 60, heart or lung disease, diabetes, immunosuppression, and travel. We also discussed NSAIDs may worsen COVID19 infection or symptoms. Patient should not use NSAIDs to treat COVID19 signs or symptoms. Patient was also informed that any type of corticosteroid of any form (oral or injection) will decrease the patient's immune system response and may increase the likelihood of COVID19 [address] symptoms[address] Elizondo has reviewed this note and agrees with this plan of care. This note was dictated using voice recognition software and make contain errors or omissions. [facility] History I have reviewed the patient's past medical history: Yes Medical History: Reports:: Gastroesophageal Reflux Disease(GERD), Hyperlipidemia, Hypertension Denies:: Asthma, Cancer, Chronic Obstructive Pulmonary Disease (COPD), Diabetes Mellitus Type 1, Diabetes Mellitus Type 2, MRSA, Seizures *Have you ever received a pneumonia vaccine?: Yes *Have you received a flu vaccine this season?: Yes Other Medical History: Reports: Arthritis, Other Other Surgeries: Yes: Cancer Surgery, Colonoscopy, Tubal Ligation, Other (cyst removal) Amputation: No Fractures: No - *Social History Smoking Status: Never smoker # Packs/Day (cigarettes): 0 #Yrs smoked (if former smoker): 0 Alcohol Intake: never Alcohol Intake Frequency:: other Substance Use Type: denies use *Occupational Status:: retired Housing: house Household Members: spouse *Travel in the last 8 weeks: None Family Hx:: Unable to obtain
== END ==
PROVIDERS: PCP Family Medicine; Visit Provider Clinical Nurse Specialist Family Health
DX: G57.00 Lesion of sciatic nerve, unspecified lower limb (principal)
CPT/HCPCS: 99212

== ENCOUNTER 2019-12-19 11:11 | Day surgery (SDC) | payer MEDICARE, SELFPAY ==
[2019-12-19 11:30] VITALS: BP 174/77; PULSE 81; RESP 18; TEMP 36.7; O2SAT 97; BMI 31.2
[2019-12-19 11:43] VITALS: BP 132/88; PULSE 85; RESP 18; O2SAT 98
[2019-12-19 11:47] VITALS: BP 136/88; PULSE 85; RESP 18; O2SAT 98
--- NOTE | 2019-12-19 11:47 | HMH.PMPROC ---
- Procedure Date: 12/19/19 Time: 11:47 Anesthesiologist:: Arie Elizondo MD Complications:: None Pre-procedure Diagnosis:: Right-sided sciatica/piriformis syndrome Post-procedure Diagnosis:: Same Indications for Procedure:: Patient is a pleasant 79-year-old white female who we have been treating for right-sided hip pain. She did well after right trochanteric bursa and right SI joint injection. She does have pain over the right buttock radiating into the distribution of the right sciatic nerve. We will do a right sciatic nerve block/piriformis injection today to help her with her pain symptoms. Procedure Details:: Right sciatic nerve block/piriformis muscle injection Informed consent was obtained and the risk and benefits of the procedure were explained to the patient. Patient was taken the procedure room. The right buttock was prepped using ChloraPrep. A 25-gauge needle was used and inserted into the area of the right sciatic nerve. We then injected 10 mL bupivacaine 0.25% and Depo-Medrol 40 mg into the area of the right sciatic nerve and right piriformis muscle. Patient tolerated the procedure well with no complications. Plan and Disposition:: We will follow-up with her in 2 weeks. Will reevaluate symptoms at that time.
[2019-12-19 12:00] VITALS: BP 152/79; PULSE 82; RESP 18; O2SAT 97
== END 2019-12-19 12:00 | disposition home or self-care (01) ==
LOC: SC.PAINP 11:13
PROVIDERS: PCP Family Medicine; Visit Provider Anesthesiology
DX: M54.31 Sciatica, right side (principal); I10 Essential (primary) hypertension; K21.9 Gastro-esophageal reflux disease without esophagitis
CPT/HCPCS: 64445; J1040

== ENCOUNTER → 2020-01-15 11:03 | Outpatient (POV) | payer MEDICARE, SELFPAY ==
[2020-01-15 11:42] VITALS: BP 117/64; PULSE 86; RESP 18; TEMP 36.4; O2SAT 99; BMI 28.1
--- NOTE | 2020-01-18 13:52 | HMH.PAINSOAP ---
[facility] Pain Management SOAP Note Subjective:: Patient is a pleasant 79-year-old white female who presents today for follow-up after right piriformis nerve block. Patient states that she did not get much benefit from this. She rates her pain today 6 out of 10 however this is a different pain. She has pain in her low back on the right side. Any kind of twisting movement makes it worse. Patient has had more than 2 medial branch blocks with 90% relief of her symptoms for several weeks. She has had an RFA in the past and got over a year relief of her symptomology. Patient is only having pain on the right side. She does have positive facet loading. She is extremely tender over her right facet joints. Patient and I discussed repeating her RFA since it has been over a year. She would like to move forward with this. ROS General: no recent weight change, no fever, no sleep disturbances Respiratory: no cough, no shortness of air, no recurring pulmonary infections Cardiovascular/Peripheral Vascular: No chest pain, No palpitations, no edema, no shortness of breath. Gastrointestinal: no new onset incontinence, normal bowel movements reported Genitourinary: no new onset incontinence Musculoskeletal: Back pain Psychiatric: normal mood/ affect Neurological: [denies new onset weakness in extremities], [denies new onset balance issues] Objective:: Physical Exam General: Alert and oriented x3, no acute distress, pleasant and cooperative, [on room air] Lungs: Resps E/U, Symmetrical chest expansion, Eyes: PERRL Musculoskeletal: Flexion and extension of lumbar spine somewhat guarded secondary to pain, deep tendon reflexes normal, strength in upper and lower extremities [5/5], slightly antalgic gait noted Neurological: speech clear, educational consultant equal, no gross sensory deficits Assessment:: Degenerative disc disease lumbar spine lumbar spondylosis, facet arthropathy low back pain Plan:: We will schedule a right sided RFA of the L4-L5 L5-S1 facet joints. Given the efficacy of her medial branch blocks and her RFA's in the past I do believe that this would benefit her. Patient's been instructed to call the office if she has any issues prior to her next appointment. She is not on any anticoagulation therapy. Dr. Elizondo has reviewed this note and agrees with this plan of care. This note was dictated using voice recognition software and may contain errors or omissions [facility] History I have reviewed the patient's past medical history: Yes Medical History: Reports:: Gastroesophageal Reflux Disease(GERD), Hyperlipidemia, Hypertension Denies:: Asthma, Cancer, Chronic Obstructive Pulmonary Disease (COPD), Diabetes Mellitus Type 1, Diabetes Mellitus Type 2, MRSA, Seizures *Have you ever received a pneumonia vaccine?: Yes *Have you received a flu vaccine this season?: Yes Other Medical History: Reports: Arthritis, Other. Denies: Blood Transfusion Reaction Other Surgeries: Yes: Cancer Surgery, Cardiac Catheterization, Colonoscopy, Tubal Ligation, Other (cyst removal) Amputation: No Fractures: No - *Social History Smoking Status: Never smoker # Packs/Day (cigarettes): 0 #Yrs smoked (if former smoker): 0 Alcohol Intake: never Alcohol Intake Frequency:: other Substance Use Type: denies use *Occupational Status:: other Housing: house Household Members: spouse *Travel in the last 8 weeks: None Family Hx:: Unable to obtain
== END ==
PROVIDERS: PCP Family Medicine; Visit Provider Clinical Nurse Specialist Family Health
DX: M51.36 Other intervertebral disc degeneration, lumbar region (principal); M47.816 Spondylosis without myelopathy or radiculopathy, lumbar region; M12.88 Other specific arthropathies, not elsewhere classified, other specified site
CPT/HCPCS: 99212

== ENCOUNTER 2020-01-23 08:26 | Day surgery (SDC) | payer MEDICARE, SELFPAY ==
[2020-01-23 08:49] VITALS: BP 167/80; PULSE 74; TEMP 36.2; O2SAT 96; BMI 30.4
[2020-01-23 09:03] VITALS: BP 132/88; PULSE 84; RESP 18; O2SAT 98
[2020-01-23 09:04] VITALS: BP 133/79; PULSE 85; RESP 18; TEMP 36.8; O2SAT 98
--- NOTE | 2020-01-23 09:19 | P.PCN_ITS ---
- Procedure Date: 01/23/20 Time: 09:19 Anesthesiologist:: Arie Elizondo MD Complications:: None Pre-procedure Diagnosis:: Degenerative disc disease of lumbar spine with lumbar spondylosis and lumbar facet arthropathy with increasing low back pain Post-procedure Diagnosis:: Same Indications for Procedure:: This patient is a pleasant 79-year-old white female who we are treating for lumbar spondylosis and lumbar facet arthropathy. She does have some increasing low back pain. She has had previous medial branch blocks with over 90% relief of her symptomology for several weeks. She has also had a previous RFA with over years relief in her pain symptoms. Her pain symptoms have now come back. Most of her pain is on the right side. We will do RFA of the lumbar facet joints of L4-5 and L5-S1 today to see if this gives her relief of her symptoms. Procedure Details:: Lumbar RFA informed consent was obtained and the risk and benefits of the procedure was explained to the patient. Patient was placed prone on the procedure table. The patient was prepped and draped in sterile fashion. C-arm fluoroscopy was used to view the lumbar spine. The skin and subcutaneous tissues were anesthetized using lidocaine. I placed 20-gauge RF needles into the facet joints of L4-5 and L5-S1 levels on the right side. We underwent sensory stimulation. There is go od sensory stimulation at 0.8 V. We underwent motor stimulation. There is no motor stimulation at 2 V. We then anesthetized these levels with lidocaine and Depo-Medrol. I used a total of 40 mg Depo-Medrol for both levels. I then burned both levels of L4-5 and L5-S1 facet joint/medial branches on the right side for 4 minutes at 80 ?C. Patient tolerated the procedure well with no complication. Plan and Disposition:: We will follow-up with this patient in 2 weeks. Will reevaluate symptoms at that time.
[2020-01-23 09:20] VITALS: BP 122/75; PULSE 68; RESP 18; TEMP 36.2; O2SAT 96
== END 2020-01-23 09:20 | disposition home or self-care (01) ==
LOC: SC.PAINP 08:29
PROVIDERS: PCP Family Medicine; Visit Provider Anesthesiology
DX: M51.16 Intervertebral disc disorders with radiculopathy, lumbar region (principal); M54.06 Panniculitis affecting regions of neck and back, lumbar region; I10 Essential (primary) hypertension; K21.9 Gastro-esophageal reflux disease without esophagitis
CPT/HCPCS: 64635; 64636; J1040

== ENCOUNTER → 2020-02-16 10:37 | Outpatient (POV) | payer MEDICARE, SELFPAY ==
[2020-02-16 10:58] VITALS: BP 125/74; PULSE 71; RESP 18; TEMP 36.8; O2SAT 98; BMI 30.2
--- NOTE | 2020-02-16 11:42 | HMH.PAINSOAP ---
[facility] Pain Management SOAP Note Subjective:: Patient is a 79-year-old white female who presents today for follow-up after her lumbar RFA. Patient states that she got no relief and she has gotten no relief from any injections except the one she got in her right lower back. She rates her pain a 0 out of 10 today. Patient states that the only pain she has is is when she goes from sitting to standing she has a electrical shock this does not last long but it does bother her. Patient was unable to take gabapentin. We discussed Lyrica. At this point she states she is quite discouraged. I stated that I be happy to send her to a surgeon she is uninterested in this. ROS General: no recent weight change, no fever, no sleep disturbances Respiratory: no cough, no shortness of air, no recurring pulmonary infections Cardiovascular/Peripheral Vascular: No chest pain, No palpitations, no edema, no shortness of breath. Gastrointestinal: no new onset incontinence, normal bowel movements reported Genitourinary: no new onset incontinence Musculoskeletal: Back pain when sitting to standing Psychiatric: normal mood/ affect Neurological: [denies new onset weakness in extremities], [denies new onset balance issues] Objective:: Physical Exam General: Alert and oriented x3, no acute distress, pleasant and cooperative, [on room air] Lungs: Resps E/U, Symmetrical chest expansion, Eyes: PERRL Musculoskeletal: Flexion and extension of lumbar spine somewhat guarded secondary to pain, deep tendon reflexes normal, strength in upper and lower extremities [5/5], [abnormal gait noted] Neurological: speech clear, respooler equal, no gross sensory deficits Assessment:: Degenerative disc disease lumbar spine lumbar radiculopathy Plan:: Start the patient on Lyrica 75 mg 1 p.o. twice daily. We will see her back in several weeks reassess her symptoms at that time she has been instructed to call the office if she has any issues prior to her next appointment. Dr. Elizondo has reviewed this note and agrees with this plan of care. This note was dictated using voice recognition software and may contain errors or omissions [facility] History I have reviewed the patient's past medical history: Yes Medical History: Reports:: Gastroesophageal Reflux Disease(GERD), Hyperlipidemia, Hypertension Denies:: Asthma, Cancer, Chronic Obstructive Pulmonary Disease (COPD), Diabetes Mellitus Type 1, Diabetes Mellitus Type 2, MRSA, Seizures *Have you ever received a pneumonia vaccine?: Yes *Have you received a flu vaccine this season?: Yes Other Medical History: Reports: Arthritis, Other. Denies: Blood Transfusion Reaction Other Surgeries: Yes: Cancer Surgery, Cardiac Catheterization, Colonoscopy, Tubal Ligation, Other (cyst removal from back) Amputation: No Fractures: No - *Social History Smoking Status: Never smoker # Packs/Day (cigarettes): 0 #Yrs smoked (if former smoker): 0 Alcohol Intake: never Alcohol Intake Frequency:: other Substance Use Type: denies use *Occupational Status:: other Housing: house Household Members: spouse *Travel in the last 8 weeks: None Family Hx:: Unable to obtain
== END ==
PROVIDERS: PCP Family Medicine; Visit Provider Clinical Nurse Specialist Family Health
DX: M51.16 Intervertebral disc disorders with radiculopathy, lumbar region (principal)
CPT/HCPCS: 99212

== ENCOUNTER → 2020-03-01 10:39 | Outpatient (POV) | payer MEDICARE, SELFPAY ==
[2020-03-01 11:02] VITALS: BP 144/78; PULSE 65; RESP 18; TEMP 36.6; O2SAT 99; BMI 30.8
--- NOTE | 2020-03-01 11:31 | P.CONS_ITS ---
[facility] Pain Management SOAP Note Subjective:: 79-year-old white female who presents today for follow-up. Patient states that she tried the Lyrica prescribed her 1 time and felt drowsy and did not take any more medication. She states that she does not know if she had pain at the time. She rates her pain a 0 out of 10 today stating that her pain is worse when she standing and walking. I have discussed in the past updated MRI and neurosurgical consultation. She is agreeable to this. We will order a lumbar MRI for the patient. ROS General: no recent weight change, no fever, no sleep disturbances Respiratory: no cough, no shortness of air, no recurring pulmonary infections Cardiovascular/Peripheral Vascular: No chest pain, No palpitations, no edema, no shortness of breath. Gastrointestinal: no new onset incontinence, normal bowel movements reported Genitourinary: no new onset incontinence Musculoskeletal: Back pain, leg pain Psychiatric: normal mood/ affect Neurological: [denies new onset weakness in extremities], [denies new onset balance issues] Objective:: Physical Exam General: Alert and oriented x3, no acute distress, pleasant and cooperative, [on room air] Lungs: Resps E/U, Symmetrical chest expansion, Eyes: PERRL Musculoskeletal: Flexion and extension of lumbar spine somewhat guarded secondary to pain, deep tendon reflexes normal, strength in upper and lower extremities [5/5], [abnormal gait noted] Neurological: speech clear, digital imaging technician equal, no gross sensory deficits Assessment:: Degenerative disc disease lumbar spine lumbar radiculopathy, facet arthropathy Plan:: Since the patient has no new MRI imaging we will send her for a lumbar MRI and potentially a neurosurgical consultation. She has been instructed to call the office if she has any issues prior to her next appointment. Dr. Elizondo has reviewed this note and agrees with this plan of care. This note was dictated using voice recognition software and may contain errors or omissions [facility] History I have reviewed the patient's past medical history: Yes Medical History: Reports:: Gastroesophageal Reflux Disease(GERD), Hyperlipidemia, Hypertension Denies:: Asthma, Cancer, Chronic Obstructive Pulmonary Disease (COPD), Diabetes Mellitus Type 1, Diabetes Mellitus Type 2, MRSA, Seizures *Have you ever received a pneumonia vaccine?: Yes *Have you received a flu vaccine this season?: Yes Other Medical History: Reports: Arthritis, Other. Denies: Blood Transfusion Reaction Other Surgeries: Yes: Cancer Surgery, Cardiac Catheterization, Colonoscopy, Tubal Ligation, Other (cyst removal from back) Amputation: No Fractures: No - *Social History Smoking Status: Never smoker # Packs/Day (cigarettes): 0 #Yrs smoked (if former smoker): 0 Alcohol Intake: never Alcohol Intake Frequency:: other Substance Use Type: denies use *Occupational Status:: other Housing: house Household Members: spouse *Travel in the last 8 weeks: None Family Hx:: Unable to obtain
== END ==
PROVIDERS: PCP Family Medicine; Visit Provider Clinical Nurse Specialist Family Health
DX: M51.16 Intervertebral disc disorders with radiculopathy, lumbar region (principal); M54.06 Panniculitis affecting regions of neck and back, lumbar region
CPT/HCPCS: 99212

== ENCOUNTER → 2020-03-08 12:58 | Outpatient (CLI) | payer MEDICARE, SELFPAY ==
--- NOTE | 2020-03-08 13:02 | MR_ITS ---
PROCEDURE: MR LUMBAR SPINE WO CON CLINICAL INDICATION: LUMBAR PAIN RT SIDED LBP X1YR. NO INJURY. PRIOR X-RAY 09-15-19 COMPARISON: No exams were available for comparison TECHNIQUE: Standard multiplanar multiecho sequences are performed without contrast. 3-D MIP and myelographic images are also rendered and reviewed FINDINGS: The spinal cord ends at the L2 level. There is mild kyphosis of the thoracolumbar junction. T12-L1: Mild degenerative disc disease with minimal bulging disc. There is some minimal endplate irregularity at the inferior endplate of T12. L1-L2: Degenerative disc disease with mild retrolisthesis of L1 on L2 of 4 mm with bulging disc along with facet and ligamentum hypertrophy. There is left-sided lateral recess narrowing with severe left-sided foraminal narrowing. L2-L3: Mild bulging disc with facet and ligamentum hypertrophy. There is transverse narrowing of the canal with bilateral lateral recess and foraminal narrowing. L3-L4: Degenerative disc disease with bulging disc and facet and ligamentum hypertrophy with bilateral lateral recess and foraminal narrowing. L4-5: Degenerative disc disease. 5 mm anterolisthesis of L4 with bulging disc with moderate to severe facet and ligamentum hypertrophy with canal stenosis and severe bilateral lateral recess narrowing and severe bilateral foraminal narrowing. The canal measures 8 mm transverse and 12 mm AP. L5-S1: Degenerative disc disease with bulging disc with 3 mm anterolisthesis of L5. There is facet and ligamentum hypertrophy with moderate to severe bilateral foraminal narrowing. Incidental note is made of bilateral renal cysts. IMPRESSION: Abnormal MRI of the lumbar spine with multilevel lumbar spondylosis with degenerative disc disease, bulging disc, facet ligamentum hypertrophy with lateral recess and foraminal narrowing and canal stenosis. Please see above for detailed description at each level. Dictated by: Db Welsh MD 03/10/2020 09:39 Db Welsh MD in [place] 03/10/2020 09:39
== END ==
PROVIDERS: PCP Family Medicine; Visit Provider Anesthesiology
DX: M54.5 Low back pain (principal)
CPT/HCPCS: 72148; 76376

== ENCOUNTER → 2020-03-15 09:39 | Outpatient (POV) | payer MEDICARE, SELFPAY ==
[2020-03-15 09:51] VITALS: BP 142/70; PULSE 87; RESP 18; TEMP 36.6; O2SAT 98; BMI 36.5
--- NOTE | 2020-03-15 10:01 | P.CONS_ITS ---
[facility] Pain Management SOAP Note Subjective:: Patient is an 79-year-old female who presents today for follow-up after MRI imaging. We discussed her MRI. Patient is uninterested in any interventional means of treatment including a minimally invasive lumbar decompression. She states that her had this with no relief and she has not allowed him to return to our office. Patient I discussed a neurosurgical consult to which she states that her pain is not bad enough for this she states the only time that she has pain is when she changes positions. She has no pain standing or walking she has no pain sitting or laying down. Patient rates her pain a 0 out of 10 right now. Patient is unable to tolerate medications. At this point she is uninterested in moving forward with anything with our clinic. ROS General: no recent weight change, no fever, no sleep disturbances Respiratory: no cough, no shortness of air, no recurring pulmonary infections Cardiovascular/Peripheral Vascular: No chest pain, No palpitations, no edema, no shortness of breath. Gastrointestinal: no new onset incontinence, normal bowel movements reported Genitourinary: no new onset incontinence Musculoskeletal: Back pain when changing positions Psychiatric: normal mood/ affect Neurological: [denies new onset weakness in extremities], [denies new onset balance issues] Objective:: Physical Exam General: Alert and oriented x3, no acute distress, pleasant and cooperative, [on room air] Lungs: Resps E/U, Symmetrical chest expansion, Eyes: PERRL Musculoskeletal: Flexion and extension of lumbar spine somewhat guarded secondary to pain, deep tendon reflexes normal, strength in upper and lower extremities [5/5], antalgic gait noted Neurological: speech clear, offensive coordinator equal, no gross sensory deficits Assessment:: Degenerative disc disease lumbar spine spinal stenosis, facet arthropathy Plan:: At this time the patient is uninterested in pursuing anything with her clinic. I discussed with her that she is welcome to return if this changes in the future. Dr. Elizondo has reviewed this note and agrees with this plan of care. This note was dictated using voice recognition software and may contain errors or omissions [facility] History I have reviewed the patient's past medical history: Yes Medical History: Reports:: Gastroesophageal Reflux Disease(GERD), Hyperlipidemia, Hypertension Denies:: Asthma, Cancer, Chronic Obstructive Pulmonary Disease (COPD), Diabetes Mellitus Type 1, Diabetes Mellitus Type 2, MRSA, Seizures *Have you ever received a pneumonia vaccine?: Yes *Have you received a flu vaccine this season?: Yes Other Medical History: Reports: Arthritis, Other. Denies: Blood Transfusion Reaction Other Surgeries: Yes: Cancer Surgery, Cardiac Catheterization, Colonoscopy, Tubal Ligation, Other (cyst removal from back) Amputation: No Fractures: No - *Social History Smoking Status: Never smoker # Packs/Day (cigarettes): 0 #Yrs smoked (if former smoker): 0 Alcohol Intake: never Alcohol Intake Frequency:: other Substance Use Type: denies use *Occupational Status:: other Housing: house Household Members: spouse *Travel in the last 8 weeks: None Family Hx:: Unable to obtain
== END ==
PROVIDERS: PCP Family Medicine; Visit Provider Clinical Nurse Specialist Family Health
DX: M51.36 Other intervertebral disc degeneration, lumbar region (principal); M48.00 Spinal stenosis, site unspecified
CPT/HCPCS: 99212; G0463

== ENCOUNTER → 2020-04-06 12:36 | Outpatient (CLI) | payer MEDICARE, SELFPAY ==
--- NOTE | 2020-04-06 12:48 | XR_ITS ---
PROCEDURE: XR SHOULDER LT MIN 2V CLINICAL INDICATION: left shoulder pain COMPARISON: CR XR SHOULDER RT MIN 2V from 11/19/2018 FINDINGS: No fracture or dislocation. No lytic or blastic change. There is normal mineralization. Osteoarthritic changes are present at the acromioclavicular joint. No significant subacromial stenosis. The glenohumeral joint has an unremarkable appearance. Minimal nonspecific periarticular calcification noted along the inferior aspect of the glenoid.. Other findings:None. IMPRESSION: Mild osteoarthritic change of the acromioclavicular joint Dictated by: Db Welsh MD 04/06/2020 13:08 Db Welsh MD in [place] 04/06/2020 13:08
[2020-04-06 13:55] LABS: Chloride 106 mmol/L (98-107); Potassium 4.3 mmoL/L (3.5-5.1); Sodium 142 mmol/L (136-145)
[2020-04-06 13:58] LABS: Blood Urea Nitrogen 28 mg/dl (7-17); Estimated Glomerular Filt Rate 53 ml/min (>60); GFR (African American) 64 ML/MIN (>60)
[2020-04-06 13:59] LABS: Anion Gap 12.3 mEq/L (5-15); Carbon Dioxide 28 mmol/L (22.0-30.0); Glucose 126 mg/dl (74-100)
[2020-04-06 14:22] LABS: Coronavirus 19 IgG Antibody Positive (Negative); Coronavirus 19 IgM Antibody Negative (Negative)
[2020-04-06 14:44] LABS: Basophils % 0.5 % (0.1-2.0); Eosinophils # 0.1 K/mm3 (0.0-0.4); Eosinophils % 0.7 % (0.1-12.0); Hematocrit 41.9 % (37.0-47.0); Lymphocytes # 1.8 K/mm3 (0.7-4.5); Lymphocytes % 21.1 % (10-50); Mean Corpuscular HGB Conc 33.4 g/dL (31.8-35.4); Mean Corpuscular Hemoglobin 29.9 pg (27.0-31.2); Mean Corpuscular Volume 89.7 fl (81-99); Mean Platelet Volume 9.5 fl (7.4-10.4); Monocytes # 0.5 K/mm3 (0.1-1.0); Monocytes % 5.5 % (1.7-9.3); Neutrophils # 6.1 K/mm3 (1.8-7.8); Neutrophils % 72.2 % (37.0-80.0); Platelet Count 231 K/mm3 (142-424); Red Blood Count 4.67 M/mm3 (4.20-5.40); Red Cell Distribution Width 13.8 % (11.5-17.5); White Blood Count 8.5 K/mm3 (4.8-10.8)
== END ==
PROVIDERS: Visit Provider Orthopaedic Surgery
DX: M65.30 Trigger finger, unspecified finger (principal); Z01.818 Encounter for other preprocedural examination; R07.9 Chest pain, unspecified; M25.512 Pain in left shoulder; Z20.822 Contact with and (suspected) exposure to COVID-19; Z86.16 Personal history of COVID-19
CPT/HCPCS: 73030; 80048; 85025; 86328

== ENCOUNTER 2020-04-08 06:39 | Day surgery (SDC) | payer MEDICARE, SELFPAY ==
[2020-04-08 07:23] VITALS: BP 176/86; PULSE 88; RESP 20; TEMP 36.4; O2SAT 98
--- NOTE | 2020-04-08 09:25 | P.PN_ITS ---
[facility] Anesthesia Checklist - Patient Identification Patient Identification: Arm Band - Structural Data Admitted From: Home Planned Operative Procedure/s: Left Middle Finger Trigger Finger Release Consent for Planned Operative Procedure(s) Verified: Yes Verified Documents: Surgical Consent, History and Physical - NPO Status Verified Time NPO: 00:00 - Additional verifications Anesthesia Reactions: No Hx Blood Transfusions: No Blood Transfusion Reaction: No - Airway Assessment C-Spine Mobility Assessed: Yes (mp2) TMJ Mobility Assessed: Yes Dentition: Good Dentition - Neurological Assessment Level of Consciousness: Awake, Alert - Anesthesia Plan Anesthesia Risk discussed: Yes Anesthesia Plan: Verified ASA Class: II Anesthesia Type: MAC [facility] History I have reviewed the patient's past medical history: Yes Medical History: Reports:: Gastroesophageal Reflux Disease(GERD), Hyperlipidemia, Hypertension Denies:: Asthma, Cancer, Chronic Obstructive Pulmonary Disease (COPD), Diabetes Mellitus Type 1, Diabetes Mellitus Type 2, MRSA, Seizures *Have you ever received a pneumonia vaccine?: No *Have you received a flu vaccine this season?: Yes Other Medical History: Reports: Arthritis, Other. Denies: Blood Transfusion Reaction Anesthesia experience/problems:: nac Laterality Cases: Right: Partial Knee Replacement Other Surgeries: Yes: Cancer Surgery, Cardiac Catheterization, Colonoscopy, Tubal Ligation, Other Amputation: No Fractures: No - *Social History Last grade of school completed: High school graduate Smoking Status: Never smoker # Packs/Day (cigarettes): 0 #Yrs smoked (if former smoker): 0 Alcohol Intake: never Alcohol Intake Frequency:: other Substance Use Type: denies use *Occupational Status:: retired Housing: house Household Members: spouse *Travel in the last 8 weeks: None Family Hx:: Unable to obtain
[2020-04-08 09:50] VITALS: BP 126/69; PULSE 76; RESP 16; TEMP 36.2; O2SAT 92
[2020-04-08 10:05] VITALS: BP 133/73; PULSE 73; RESP 16; TEMP 36.2; O2SAT 95
[2020-04-08 10:20] VITALS: BP 140/80; PULSE 68; RESP 16; TEMP 36.2; O2SAT 96
[2020-04-08 10:35] VITALS: BP 127/78; PULSE 67; RESP 16; TEMP 36.2; O2SAT 98
--- NOTE | 2020-04-08 11:54 | HMH.OPNOTE ---
Date of procedure: 04/08/20 Pre-op Diagnosis:: L middle trigger finger Post-op Diagnosis:: L middle trigger finger Procedure performed:: L middle trigger finger release Surgeon:: Lara Avery MD Heavy Equipment Diesel Mechanic(s):: Tita Lai GERIATRIC NURSING ASSISTANT:: Kt Moore Anesthesia: MAC, local Estimated blood loss (mL): 5 Clinical Note:: 79yo F with a long history of trigger finger of B/L middle fingers. I've been treating this with corticosteroid injections, which she's received in B/L middle fingers on 06/14/2018 and 05/16/2019. Each injection provided relief from pain and triggering for nearly a year. The last injections helped significantly and her pain is only recently returned. She has pain over the base of the right middle finger but no further locking on that side. The left is as bad as it ever was with frequent popping/locking and pain. No numbness or tingling reported in the hands. She takes Celebrex, lisinopril, fish oil, Lyrica, amlodipine and sucralfate. No history of diabetes, no previous adverse reaction to her steroid injections. Medical history significant for GERD and hypertension with lumbar DJD. No known drug allergies. I discussed treatment options with the patient, both surgical and non-surgical, and the patient would like to proceed with surgical trigger finger release on the L side. She would like another injection on the R while we treat the L. This was given 04/05/20. I discussed the risks of surgery with the patient, including but not limited to: bleeding, infection, neurovascular damage, wound dehiscence, persistence of symptoms despite surgery, recurrence of trigger finger or development in other digits. The patient vocalized understanding and is in agreement with the plan. Operative findings:: thickening of A1 jairon L middle finger; nodule of scar tissue within jairon Operative note:: The patient was identified in preoperative holding and the L middle finger signed by myself with marking pen. I reviewed the consent with the patient, answering all questions. She was then seen by anesthesia and the decision made to perform the surgery with MAC/local. The patient was then taken to the OR and placed supine on the operative table with a hand table attached under the left upper extremity. 1 gram cefazolin was infused and intravenous sedation administered. Timeout was performed, identifying the correct patient, correct procedure, and correct site. Local anesthesia administered at the surgical site using 10cc of a 1:1 mixture of 1% lidocaine and 0.5% marcaine, both without epinephrine. This was done volarly at the A1 jairon, using a 25G needle and aseptic technique. A non-sterile tourniquet was then placed on the upper L arm and the arm prepped and draped in the usual sterile fashion. The procedure was begun by exsanguinating the patient's L upper extremity with an Esmarch and elevating the tourniquet to 225 mmHg. The planned surgical incision was drawn in marking pen, at the volar base of the L middle finger. There was a palpable nodule here as well, which was planned on being investigated and excised with the trigger finger release. Incision was made over the delineated area using a 15 blade. After the skin was incised, tenotomy scissors were used to bluntly spread the subcutaneous tissue. Tissue was spread until the A1 jairon was identified. No neurovascular structures were encountered thus far. A freer was used to identify proximal and distal edges of the jairon; the tip of the freer was slipped under the jairon to protect the underlying flexor tendon. 15 blade was then used to cut down onto the jairon, fully releasing it. A small nodule of scar tissue was seen within the jairon, around 2mm in diameter; this was excised and discarded. The tourniquet was then dropped and the wound was irrigated with sterile saline. Hemostasis was obtained with bipolar cautery. The wound was closed with 4-0 nylon in a simple, interrupted fashion. Sterile dressings were then
== END 2020-04-08 10:38 | disposition home or self-care (01) ==
PROVIDERS: PCP Family Medicine; Visit Provider Orthopaedic Surgery
PROC: (CPT 26055; principal; 2020-04-08 08:30)
DX: M65.331 Trigger finger, right middle finger (principal); Z79.899 Other long term (current) drug therapy
CPT/HCPCS: 26055; 96374

== ENCOUNTER → 2020-08-13 09:49 | Outpatient (CLI) | payer MEDICARE, SELFPAY | PROVIDERS: Visit Provider Internal Medicine Gastroenterology | DX: Z01.812 Encounter for preprocedural laboratory examination (principal); Z20.822 Contact with and (suspected) exposure to COVID-19; Z12.11 Encounter for screening for malignant neoplasm of colon | CPT/HCPCS: U0003 ==

== ENCOUNTER 2020-08-16 10:18 | Day surgery (SDC) | payer MEDICARE, SELFPAY ==
[2020-08-10 13:59] VITALS: BMI 31.2
[2020-08-16] VITALS (7 sets, daily range): BP systolic 92–141; BP diastolic 57–79; PULSE 66–87; RESP 16–18; TEMP 36.2–36.5; O2SAT 93–97
--- NOTE | 2020-08-16 12:11 | P.PN_ITS ---
[facility] Anesthesia Checklist - Patient Identification Patient Identification: Arm Band - Structural Data Admitted From: Home Planned Operative Procedure/s: colonoscopy Consent for Planned Operative Procedure(s) Verified: Yes Verified Documents: Surgical Consent, History and Physical - NPO Status Verified Time NPO: 00:00 - Additional verifications Anesthesia Reactions: No Hx Blood Transfusions: No Blood Transfusion Reaction: No - Airway Assessment C-Spine Mobility Assessed: Yes (mp2) TMJ Mobility Assessed: Yes Dentition: Dentures-good fit - Neurological Assessment Level of Consciousness: Awake, Alert - Anesthesia Plan Anesthesia Risk discussed: Yes Anesthesia Plan: Verified ASA Class: II Anesthesia Type: MAC [facility] History I have reviewed the patient's past medical history: Yes Medical History: Reports:: Gastroesophageal Reflux Disease(GERD), Hyperlipidemia, Hypertension Denies:: Asthma, Cancer, Chronic Obstructive Pulmonary Disease (COPD), Diabetes Mellitus Type 1, Diabetes Mellitus Type 2, Internal Pacemaker, MRSA, Seizures *Have you ever received a pneumonia vaccine?: No *Have you received a flu vaccine this season?: Yes Other Medical History: Reports: Arthritis, Other. Denies: Blood Transfusion Reaction Anesthesia experience/problems:: nac Other Surgeries: Yes: Cancer Surgery, Cardiac Catheterization, Colonoscopy, Tubal Ligation, Other. No: Pacemaker Amputation: No Fractures: No - *Social History Smoking Status: Never smoker # Packs/Day (cigarettes): 0 #Yrs smoked (if former smoker): 0 Alcohol Intake: never Alcohol Intake Frequency:: other Substance Use Type: denies use *Occupational Status:: retired Housing: house Household Members: spouse *Travel in the last 8 weeks: None Family Hx:: No significant family history
--- NOTE | 2020-08-16 12:33 | HMH.PROC ---
[facility] Procedure Note Procedure Note:: Colonoscopy Procedure Report: Colonoscopy Endoscopist: Meliton Ramirez II, MD Referring physician: Rene Noble MD Date of Procedure: August 16, 2020 Equipment: Olympus 190 variable stiffness pediatric colonoscope Sedation: MAC sedation Indication: Mrs. Ramirez is an 80-year-old female who is here for follow-up screening/surveillance colonoscopy. She does state that her last colonoscopy was 13 years ago and revealed diverticulosis but no polyps (2007). The patient reports no abdominal pain, weight loss, change in her bowel habits or rectal bleeding. She reports no family history of colon cancer. She does have some long-term bowel urgency and bowel control difficulty. Procedure: Prior to the procedure, a history and physical exam was performed, and patient's medications and allergies were reviewed. The risks, benefits and alternatives of the sedation and procedure were discussed with the patient. All questions were answered and informed consent was obtained. The patient was brought to the procedure room. Patient identification and proposed procedure were verified by the physician and the nurse. The patient was placed in a left lateral decubitus position and the scope was passed under direct vision. Throughout the procedure, the patient's blood pressure, pulse, and oxygen saturations were monitored continuously. The colonoscopy was accomplished without difficulty. The patient tolerated the procedure well. Findings: On digital rectal examination there was normal rectal tone. There were no external hemorrhoids. The colonoscope was introduced through the anal canal to the rectum and advanced to the cecum. The ileocecal valve and appendiceal orifice were identified. The scope was advanced a short distance into the ileum which appeared grossly normal. The scope was then withdrawn into the colon. There were scattered diverticulosis/diverticuli throughout the colon but more predominantly in the descending and sigmoid colon (left colon). There were no other mucosal abnormalities. The rectum itself was normal. Upon retroflexion within the rectum there were grade 1-2 internal hemorrhoids. The preparation was excellent throughout with [place] Preparation Score of 9. The cecal time was 12 minutes. Impression: 1. Extensive pandiverticulosis 2. Grade 1-2 internal hemorrhoids Plan: The patient will not require any further screening/surveillance colonoscopy. I would encourage fiber bulk (FiberCon 2 tablets by mouth every morning or twice daily).
== END 2020-08-16 13:15 | disposition home or self-care (01) ==
LOC: OUTP 10:18
PROVIDERS: PCP Family Medicine; Visit Provider Internal Medicine Gastroenterology
PROC: 0DJD8ZZ Inspection of Lower Intestinal Tract, Via Natural or Artificial Opening Endoscopic (ICD-10-PCS; CPT 45378; principal; 2020-08-16 11:30)
DX: Z12.11 Encounter for screening for malignant neoplasm of colon (principal); K57.30 Diverticulosis of large intestine without perforation or abscess without bleeding; K64.0 First degree hemorrhoids
CPT/HCPCS: G0121

== ENCOUNTER → 2021-03-04 09:41 | Outpatient (CLI) | payer MEDICARE, SELFPAY ==
--- NOTE | 2021-03-04 09:48 | CA_ITS ---
APPROVED REPORT EXAM: Comprehensive 2D, Doppler, and color-flow Echocardiogram Inspector Finishing: Giselle Hull, RCS, RVS Ht: 5 ft 0 in Wt: 160lbs BSA: 1.70 BP: 138/80 mmHg Indications: SOA, HTN, HLD 2D Dimensions Aortic Root 2.54 cm F: 2.7 - 3.3 LA Volume 51.20 mL Left Atrium 3.17 cm F: 2.7 - 3.8 LA Volume Index [id number] mL/m2 (M/F) 16-34 LVOT 1.81 cm (M/F) 1.5-2.5 M-Mode Dimensions RVDd 2.77 cm (0.9-2.6) LA Diam 3.31 cm (1.9-4.0) LVDd 5.43 cm (3.5-5.7) Ao Diam 2.58 cm (2.0-3.7) LVDs 3.34 cm (3.5-5.7) IVSd 0.85 cm (0.6-1.1) PWd 0.75 cm (0.6-1.1) EF (Teich) 68.30% EPSs 0.90 cm FS 38.50% EDV (Teich) 143.10 mL TAPSE 2.06 (<1.7) ESV (Teich) 45.40 mL LV Diastology E Decel Time 217.00 (160-240 msec) E/A Ratio 0.76 MED E' 7.60 (< 7 cm/sec) MED A' 13.30 cm/s E'/MED E' Ratio 10.39 (>14) LAT E' 9.60 (<10 cm/sec) LAT A' 14.30 cm/s E/LAT E' Ratio 8.23 (>14) Aortic Valve LVOT Max 93.00 (70-110 cm/s) LVOT VTI 19.50 cm AoV Peak Figueroa. 162.00 (50-130 cm/s) AI PHT 548.00 ms AO Peak GR. 10.50 mmHg AO Mean GR. 5.20 (<5 mmHg) AO VTI 31.61 (18-25 cm) ANN MARIE (VTI) 1.59 (2.5-4.5 cm2) Mitral Valve MV A Velocity 104.00 (40-130 cm/s) E/A Ratio 0.76 MV Decel. Time 217.00 (160-240 ms) Pulmonary Valve PV Peak Velocity 105.00 (50-150 cm/s) Left Ventricle Left atrium is mildly enlarged, left ventricle is normal size, mild concentric left ventricular hypertrophy, visually estimated ejection fraction 55% with no regional wall motion abnormality, grade 1 diastolic dysfunction seen without tissue Doppler evidence of raise left atrial pressure. Right Ventricle Right atrium and right ventricle mildly enlarged with normal contractility. Aortic Valve Aortic valve is minimally thickened and fibrosed, there is no aortic stenosis, there is mild aortic insufficiency. Mitral Valve Mitral valve grossly normal, there is trace mitral regurgitation. Tricuspid Valve Tricuspid valve grossly normal, there is trace tricuspid regurgitation, tricuspid regurgitation jet velocity is inadequate for calculation of the right ventricular systolic pressure. Pulmonic Valve Pulmonic valve is poorly visualized. Great Vessels Aortic root is normal size. Inferior vena cava is poorly visualized. Pericardium No significant pericardial effusion noted. Conclusion 1. Mild biatrial enlargement, normal left ventricular size, mild concentric left ventricular hypertrophy, visually estimated ejection fraction 55% with no regional wall motion abnormality, grade 1 diastolic dysfunction seen without tissue Doppler evidence of raise left atrial pressure. 2. Mild aortic, trace mitral and tricuspid regurgitation. 3. No significant pericardial effusion noted. Electronically signed by : Jordi Prasad MD 03/04/2021 16:33:42
== END ==
PROVIDERS: PCP Family Medicine; Visit Provider Family Medicine
DX: R06.09 Other forms of dyspnea (principal)
CPT/HCPCS: 93306

== ENCOUNTER → 2021-03-18 13:14 | Outpatient (CLI) | payer MEDICARE, SELFPAY ==
--- NOTE | 2021-03-18 13:22 | XR_ITS ---
FINAL REPORT CLINICAL HISTORY: Chronic pain of both feet Hx of bone spur removal on Lt foot FINDINGS: LEFT FOOT Three views demonstrate no acute fracture or dislocation. There is a chronic fracture of the fourth metatarsal. There are mild degenerative changes. There are moderate degenerative changes of the midfoot. A plantar calcaneal spur is identified. IMPRESSION: Degenerative and chronic appearing findings. Reviewed, Interpreted and Dictated by Gagandeep Alaniz III, MD Transcribed by Alicia Perez Authenticated by Gagandeep Alaniz III, MD on 03/18/2021 02:48:02 PM [facility]
--- NOTE | 2021-03-18 13:22 | XR_ITS ---
FINAL REPORT CLINICAL HISTORY: Chronic pain of both feet FINDINGS: RIGHT FOOT Three views demonstrate no acute fracture or dislocation. There are mild degenerative changes. A small calcaneal spur is identified. No soft tissue abnormality is seen. IMPRESSION: No acute process. Reviewed, Interpreted and Dictated by Gagandeep Alaniz III, MD Transcribed by Alicia Perez Authenticated by Gagandeep Alaniz III, MD on 03/18/2021 02:48:[address] [facility]
== END ==
PROVIDERS: PCP Family Medicine; Visit Provider Podiatrist
DX: M19.071 Primary osteoarthritis, right ankle and foot (principal); M19.072 Primary osteoarthritis, left ankle and foot
CPT/HCPCS: 73630

== ENCOUNTER → 2021-06-14 12:32 | Outpatient (CLI) | payer MEDICARE, SELFPAY ==
--- NOTE | 2021-06-14 12:37 | XR_ITS ---
FINAL REPORT CLINICAL HISTORY: RT HAND PAIN..no trauma FINDINGS: 3 views of the right hand were obtained. There is no acute fracture or dislocation. There is moderate narrowing of the DIP, PIP and MCP joints consistent with osteoarthritis. There are no bony erosions. There are moderate hypertrophic changes at the basilar joint. There is no soft tissue abnormality. IMPRESSION: Moderate osteoarthritis. Reviewed, Interpreted and Dictated by Nura Cortez MD Transcribed by Jean-Paul Rolon Authenticated by Nura Cortez MD on 06/14/2021 02:13:13 PM [facility]
== END ==
PROVIDERS: PCP Family Medicine; Visit Provider Family Medicine
DX: M79.641 Pain in right hand (principal)
CPT/HCPCS: 73130

== ENCOUNTER → 2021-11-15 12:46 | Outpatient (POV) | payer MEDICARE, SELFPAY | PROVIDERS: Visit Provider Dermatology | DX: Z00.00 Encounter for general adult medical examination without abnormal findings (principal) ==

== ENCOUNTER 2022-02-03 09:15 | Emergency (ER) | payer MEDICARE, SELFPAY ==
--- NOTE | 2022-02-03 10:01 | EXP.UTC ---
Discharge Plan Disposition Patient Disposition: Home, Self-Care Condition: Good Prescriptions Prescriptions: New prednisone 10 mg tablet 10 mg PO DIRECTED 9 Days Qty: 21 0RF Rx Instructions: Take 4 tablets daily for 3 days, then take 2 tablets daily for 3 days, then take 1 tablet daily for 3 days, then stop. benzonatate [benzonatate] 100 mg capsule 100 mg PO TIDP PRN (Reason: Cough) Qty: 30 0RF cefdinir 300 mg capsule 300 mg PO BID Qty: 20 0RF No Action amlodipine 10 mg tablet 10 mg PO DAILY 90 Days lisinopril 20 mg tablet 20 mg PO DAILY 90 Days celecoxib 200 mg capsule 200 mg PO DAILY 90 Days omega 1-hny-wzo-fish oil 1,000 MG capsule 2,000 mg PO DAILY Referrals Follow up/Referrals: Rene Noble MD [Primary Care Provider] - See instructions Activity Restrictions/Add. Instructions Additional Instructions/Restrictions: Drink plenty of fluids. Take tylenol or ibuprofen for pain or fever. Take the medications as directed. Follow up with your regular doctor. GO TO THE ER FOR ANY WORSENING SYMPTOMS Clinical Impressions Clinical Impression: Right middle lobe pneumonia Instructions Patient Instructions: Pneumonia-Adult Discharge ED Provider: Hernán Monroe [facility] General Stated complaint: Persistant cough Time Seen by Provider: 02/03/22 10:00 History of Present Illness Provider Complaint: She c/o having a productive cough for the past 1 week. She denies any fever or chills, but she has felt bad. Related Data Home Medications Medication Instructions Recorded Confirmed amlodipine 10 mg tablet 10 mg PO DAILY High blood pressure 07/03/17 12/21/21 90 days celecoxib 200 mg capsule 200 mg PO DAILY Arthritis 90 days 07/03/17 12/21/21 lisinopril 20 mg tablet 20 mg PO DAILY High blood pressure 07/03/17 12/21/21 90 days omega 6-snc-yuj-fish oil 1,000 mg 2,000 mg PO DAILY Supplement 08/03/18 12/21/21 (120 mg-180 mg) capsule Previous Rx's Medication Instructions Recorded benzonatate 100 mg capsule 100 mg PO TIDP PRN Cough #30 caps 02/03/22 cefdinir 300 mg capsule 300 mg PO BID #20 caps 02/03/22 prednisone 10 mg tablet 10 mg PO DIRECTED 9 days #21 02/03/22 tabs Allergies Allergy/AdvReac Type Severity Reaction Status Date / Time No Known Allergies Allergy Verified 02/03/22 10:18 [facility] Disclaimer: The information contained in this section may have been updated after the patient was seen, as this information can be updated by other users. Medical History Hyperlipidemia Social History Smoking Status: Never smoker second hand exposure: No alcohol intake: never substance use type: denies use current occupational status: retired Travel in the last 8 weeks: None household members: spouse housing: house current occupational exposures/hazards: No caffeine: Yes ROS Obtained: Yes All systems reviewed & no additional complaints except as documented Constitutional Constitutional: Denies chills and Denies fever(s) Eyes Eyes: Denies eye discharge ENT Ears, Nose, Mouth, and Throat: Denies dizziness, Denies otalgia and Denies sore throat Cardiovascular Cardiovascular: Denies chest pain Respiratory Respiratory: Denies shortness of breath, Reports chest congestion, Reports cough, Denies stridor and Denies wheezing Gastrointestinal Gastrointestingal: Denies nausea or vomiting Musculoskeletal Musculoskeletal: Reports system reviewed and no additional complaints, except as documented and Denies arthralgias Integumentary/Breasts Skin/Breast: Denies rash Neurologic Neurologic: Denies dizziness and Denies paresthesias Allergic/Immunologic Allergic/Immunologic: Denies wheezing Physical Exam General General appearance: alert and in no apparent distress Head Head exam: atraumatic, normocephalic
--- NOTE | 2022-02-03 10:02 | XR_ITS ---
FINAL REPORT TECHNIQUE: Chest PA & Lateral CLINICAL HISTORY: Cough x days, 0 other chest complaints. Nonsmoker FINDINGS: 2 views of the chest were performed. There is mild cardiomegaly. There is an unfolded aorta. The mediastinum is within normal limits. There is some mild opacity in the right perihilar region which may be related to small focus of acute pneumonia. There are no pleural effusions. There is no pneumothorax. The bony thorax appears intact. IMPRESSION: Mild opacity in the right perihilar region may be related to small focus of acute pneumonia. Get follow-up PA and lateral chest in 7-10 days. Reviewed, Interpreted and Dictated by Nura Cortez MD Transcribed by Simin Ramirez Authenticated and [facility]
[2022-02-03 10:15] VITALS: BP 156/88; PULSE 87; RESP 16; TEMP 36.7; O2SAT 97; BMI 29.7
[2022-02-03 10:19] LABS: UTC Influenza A Antigen Negative (Negative); UTC Influenza B Antigen Negative (Negative)
[2022-02-03 10:54] VITALS: BP 156/88; PULSE 87; RESP 16; TEMP 36.7
[2022-02-03 11:03] LABS: Adenovirus,PCR Not Detected (NotDetected); Bordetella Pertussis Not Detected (NotDetected); Chlamydophila Pneumoniae, PCR Not Detected (NotDetected); Coronavirus 19, PCR Not Detected (NotDetected); Coronavirus 229E Not Detected (NotDetected); Coronavirus NL63 Not Detected (NotDetected); Coronavirus OC43 Not Detected (NotDetected); Coronovirus HKU1,PCR Not Detected (NotDetected); Human Metapneumovirus Not Detected (NotDetected); Influenza AH1, 2009 Not Detected (NotDetected); Influenza AH1, PCR Not Detected (NotDetected); Influenza AH3,PCR Not Detected (NotDetected); Influenza B, PCR Not Detected (NotDetected); Mycoplasma Pneumoniae, PCR Not Detected (NotDetected); Parainfluenza 1, PCR Not Detected (NotDetected); Parainfluenza 2, PCR Not Detected (NotDetected); Parainfluenza 3, PCR Not Detected (NotDetected); Parainfluenza 4, PCR Not Detected (NotDetected); Respiratory Syncytial Virus Not Detected (NotDetected); Rhinovirus/Enterovirus Not Detected (NotDetected)
[2022-02-04 09:06] LABS: Influenza A, PCR Detected (NotDetected)
== END 2022-02-03 10:59 | disposition home or self-care (01) ==
PROVIDERS: Emergency Provider Nurse Practitioner Family; PCP Family Medicine
DX: J18.9 Pneumonia, unspecified organism (principal)
CPT/HCPCS: 71046; 87581; 87632; 87798; 87804; 99212; C9803; G0463; U0003; U0005

== ENCOUNTER → 2022-02-13 11:16 | Outpatient (CLI) | payer MEDICARE, SELFPAY ==
--- NOTE | 2022-02-13 11:23 | XR_ITS ---
FINAL REPORT CLINICAL HISTORY: BRONCHITIS COMPARISON: February 03, 2022 FINDINGS: Two views of the chest were obtained. The heart size and pulmonary vascularity are within normal limits. The mediastinum is normal. No acute pulmonary abnormality is identified. There is no pneumothorax. The bony thorax is intact. IMPRESSION: No active cardiopulmonary disease. Reviewed, Interpreted and Dictated by Gagandeep Alaniz III, MD Transcribed by Simin Ramirez Authenticated and [facility]
== END ==
PROVIDERS: PCP Family Medicine; Visit Provider Family Medicine
DX: J40 Bronchitis, not specified as acute or chronic (principal)
CPT/HCPCS: 71046

== ENCOUNTER → 2022-03-07 09:39 | Outpatient (POV) | payer MEDICARE, SELFPAY | PROVIDERS: Visit Provider Dermatology | DX: Z00.00 Encounter for general adult medical examination without abnormal findings (principal) ==

== ENCOUNTER 2022-05-01 09:04 | Emergency (ER) | payer MEDICARE, SELFPAY ==
[2022-05-01 09:10] VITALS: BP 155/83; PULSE 85; RESP 22; TEMP 37.3; O2SAT 96; BMI 31.2
--- NOTE | 2022-05-01 09:26 | EXP.UTC ---
Discharge Plan Disposition Patient Disposition: Home, Self-Care Condition: Good Prescriptions Prescriptions: New benzonatate 100 mg capsule 100 mg PO TID PRN (Reason: cough) Qty: 30 0RF prednisone 10 mg tablet 10 mg PO BID 5 Days Qty: 10 0RF cefdinir 300 mg capsule 300 mg PO BID Qty: 20 0RF No Action amlodipine 10 mg tablet 10 mg PO DAILY 90 Days lisinopril 20 mg tablet 20 mg PO DAILY 90 Days celecoxib 200 mg capsule 200 mg PO DAILY 90 Days benzonatate [benzonatate] 100 mg capsule 100 mg PO TIDP PRN (Reason: Cough) Qty: 30 0RF omega 0-fee-yil-fish oil 1,000 MG capsule 2,000 mg PO DAILY Referrals Follow up/Referrals: Rene Noble MD [Primary Care Provider] - See instructions Activity Restrictions/Add. Instructions Additional Instructions/Restrictions: Start antibiotic today. Be sure to complete entire prescription even if feeling better Monitor temp. Tylenol every 4 hours as needed and / or ibuprofen every 6 hours as needed ( As long as your primary care physician has told you that it ok to take both. For fever/aches/pains ER if no less than 101 despite Tylenol or Motrin Humidifier/vaporizer or hot steamy shower *Tessalon Perles will not cause drowsiness but use at bedtime to help stop cough so that you may get some rest. *Start steroid today. Helps with inflammation therefore, cough and wheezing. Follow directions on the package. Reviewed side effects. Patient reports taking them before. Follow up IMMEDIATELY for new or worsening of symptoms OR no noticeable improvement over the next 48-72 hours. 911 immediately for any life threatening symptoms such as chest pain or difficulty breathing Clinical Impressions Clinical Impression: Sinusitis, Bronchitis Instructions Patient Instructions: DI for Sinusitis, Sinusitis, Acute Bronchitis Discharge ED Provider: Melody Loredo [facility] [place] HPI General Stated complaint: cough Mode of Arrival: Ambulatory Source of Information: Patient Limitations: No Limitations Time Seen by Provider: 05/01/22 09:26 Description of Symptoms (Recalled from Triage Doc. by RN): PATIENT C/O COUGH THAT STARTED OVER THE WEEKEND HEENT Symptoms (Recalled from RN notes): No Resp Symptoms (Recalled from RN notes): Yes Skin Symptoms (Recalled from RN notes): No MS Symptoms (Recalled from RN notes): No Functional Status (Recalled from RN notes): WNL History of Present Illness Provider Complaint: Patient states that she has been having sinus congestion and drainage or about a week then started with cough over the weekend and feels like it is trying to move into her chest States that she gets Bronchitis bad every year and feels like it is starting and wanted to come in before it turned into pneumonia again Related Data Home Medications Medication Instructions Recorded Confirmed amlodipine 10 mg tablet 10 mg PO DAILY High blood pressure 07/03/17 03/28/22 90 days celecoxib 200 mg capsule 200 mg PO DAILY Arthritis 90 days 07/03/17 03/28/22 lisinopril 20 mg tablet 20 mg PO DAILY High blood pressure 07/03/17 03/28/22 90 days omega 7-spr-yhd-fish oil 1,000 mg 2,000 mg PO DAILY Supplement 08/03/18 03/28/22 (120 mg-180 mg) capsule Previous Rx's Medication Instructions Recorded benzonatate 100 mg capsule 100 mg PO TIDP PRN Cough #30 caps 02/03/22 benzonatate 100 mg capsule 100 mg PO TID PRN cough #30 caps 05/01/22 cefdinir 300 mg capsule 300 mg PO BID #20 caps 05/01/22 prednisone 10 mg tablet 10 mg PO BID 5 days #10 tabs 05/01/22 Allergies Allergy/AdvReac Type Severity Reaction Status Date / Time No Known Allergies Allergy Verified 03/28/22 08:58 Worker's Comp Is this a Worker's Comp case?: No [facility] Disclaimer: The information contained in this section may have been updated after the patient was seen, as this information can be updated by other users. Medical History (Reviewed
[2022-05-01 09:36] VITALS: BP 155/83; PULSE 85; RESP 22; TEMP 37.3; O2SAT 96
== END 2022-05-01 09:39 | disposition home or self-care (01) ==
PROVIDERS: Emergency Provider Nurse Practitioner; PCP Family Medicine
DX: J32.9 Chronic sinusitis, unspecified (principal); J40 Bronchitis, not specified as acute or chronic
CPT/HCPCS: 99212; 99213; G0463

== ENCOUNTER 2022-05-05 09:06 | Emergency (ER) | payer MEDICARE, SELFPAY ==
[2022-05-05 09:30] VITALS: BP 165/87; PULSE 83; RESP 24; TEMP 36.9; O2SAT 94; BMI 30.8
--- NOTE | 2022-05-05 09:54 | EXP.UTC ---
Discharge Plan Disposition Patient Disposition: Home, Self-Care Condition: Good Prescriptions Prescriptions: New benzonatate [benzonatate] 100 mg capsule 100 mg PO TIDP PRN (Reason: Cough) Qty: 30 0RF methylprednisolone 4 mg Tablets,Dose Pack 4 mg PO DIRECTED Qty: 21 0RF amoxicillin-pot clavulanate 500-125 mg tablet 1 tab PO BID Qty: 20 0RF No Action amlodipine 10 mg tablet 10 mg PO DAILY 90 Days lisinopril 20 mg tablet 20 mg PO DAILY 90 Days celecoxib 200 mg capsule 200 mg PO DAILY 90 Days benzonatate [benzonatate] 100 mg capsule 100 mg PO TIDP PRN (Reason: Cough) Qty: 30 0RF benzonatate 100 mg capsule 100 mg PO TID PRN (Reason: cough) Qty: 30 0RF prednisone 10 mg tablet 10 mg PO BID 5 Days Qty: 10 0RF cefdinir 300 mg capsule 300 mg PO BID Qty: 20 0RF omega 0-qnz-usc-fish oil 1,000 MG capsule 2,000 mg PO DAILY Referrals Follow up/Referrals: Rene Noble MD [Primary Care Provider] - See instructions Activity Restrictions/Add. Instructions Additional Instructions/Restrictions: Drink plenty of fluids. Take tylenol or ibuprofen for pain or fever. Take the medications as directed. Follow up with your regular doctor. GO TO THE ER FOR ANY WORSENING SYMPTOMS Don't start the oral steroids until tomorrow, since you had the shot here today. stop the prednisone and the cefdinir that you are on right now. Start the new medications. Clinical Impressions Clinical Impression: Sinusitis Instructions Patient Instructions: Sinusitis, DI for Sinusitis Discharge ED Provider: Hernán [place] [facility] [place] General Stated complaint: cough, chest congestion Mode of Arrival: Ambulatory Source of Information: Patient Limitations: No Limitations Time Seen by Provider: 05/05/22 09:54 Description of Symptoms (Recalled from Triage Doc. by RN): PATIENT C/O COUGH AND CONGESTION. SHE REPORTS SHE WAS SEEN IN [facility]DAY BUT IS NOT BETTER HEENT Symptoms (Recalled from RN notes): No Resp Symptoms (Recalled from RN notes): Yes Skin Symptoms (Recalled from RN notes): No MS Symptoms (Recalled from RN notes): No Functional Status (Recalled from RN notes): WNL History of Present Illness Provider Complaint: She is back to follow up over her sinus infection. She was in here 4 days ago. She states that she is not getting better. She denies chest congestion and shortness of breath. Related Data Home Medications Medication Instructions Recorded Confirmed amlodipine 10 mg tablet 10 mg PO DAILY High blood pressure 07/03/17 03/28/22 90 days celecoxib 200 mg capsule 200 mg PO DAILY Arthritis 90 days 07/03/17 03/28/22 lisinopril 20 mg tablet 20 mg PO DAILY High blood pressure 07/03/17 03/28/22 90 days omega 9-lha-lcy-fish oil 1,000 mg 2,000 mg PO DAILY Supplement 08/03/18 03/28/22 (120 mg-180 mg) capsule Previous Rx's Medication Instructions Recorded benzonatate 100 mg capsule 100 mg PO TIDP PRN Cough #30 caps 02/03/22 benzonatate 100 mg capsule 100 mg PO TID PRN cough #30 caps 05/01/22 cefdinir 300 mg capsule 300 mg PO BID #20 caps 05/01/22 prednisone 10 mg tablet 10 mg PO BID 5 days #10 tabs 05/01/22 amoxicillin 500 mg-potassium 1 tab PO BID #20 tabs 05/05/22 clavulanate 125 mg tablet benzonatate 100 mg capsule 100 mg PO TIDP PRN Cough #30 caps 05/05/22 methylprednisolone 4 mg tablets in 4 mg PO DIRECTED #21 tabs 05/05/22 a dose pack Allergies Allergy/AdvReac Type Severity Reaction Status Date / Time No Known Allergies Allergy Verified 03/28/22 08:58 Worker's Comp Is this a Worker's Comp case?: No [facility] Disclaimer: The information contained in this section may have been updated after the patient was seen, as this information can be updated by other users. Medical History Hyperlipidemia Social History Smoking Statu
[2022-05-05 10:29] VITALS: BP 165/87; PULSE 83; RESP 24; TEMP 36.9; O2SAT 94
== END 2022-05-05 10:48 | disposition home or self-care (01) ==
PROVIDERS: Emergency Provider Nurse Practitioner Family; PCP Family Medicine
DX: J32.9 Chronic sinusitis, unspecified (principal)
CPT/HCPCS: 96372; 99212; 99213; G0463; J0696

== ENCOUNTER → 2022-06-22 08:22 | Outpatient (CLI) | payer MEDICARE, SELFPAY ==
--- NOTE | 2022-06-22 08:25 | XR_ITS ---
FINAL REPORT CLINICAL HISTORY: left shoulder pain COMPARISON: 04/06/2020 FINDINGS: LEFT SHOULDER 3 views of the left shoulder were obtained. There is no acute fracture or dislocation. There are mild degenerative changes of the acromioclavicular and glenohumeral joints. There is no soft tissue abnormality. IMPRESSION: Mild degenerative change, similar to the prior exam. Reviewed, Interpreted and Dictated by Gagandeep Alaniz III, MD Transcribed by Simin Ramirez Authenticated and [facility]
== END ==
PROVIDERS: PCP Family Medicine; Visit Provider Orthopaedic Surgery
DX: M25.512 Pain in left shoulder (principal)
CPT/HCPCS: 73030

== ENCOUNTER → 2023-01-24 12:53 | Outpatient (POV) | payer MEDICARE, SELFPAY ==
--- NOTE | 2023-01-24 13:03 | EXP.PAIN.OV ---
HPI Data of Consult Patient: new to practice Consult date: 01/24/23 Requesting Physician: Gema Cotton APRN Primary Care Provider: Rene Noble MD Consult Narrative Reason for consult: Left buttocks pain History of present illness: Ms. Ramirez is a 82 year old female who presents today as a new patient. She is a referral from Dr. Richards's office. Today she rates her pain a 5 out of 10. Patient states that she has been a previous client of ours a couple of years ago and did have multiple injections that did provide improvement. She states her pain today is all around her left buttocks and does go into her thigh and the back. Patient states this has been going on for approximately 3 weeks to a month. Patient states that there was no specific trauma or injury that initially led to her symptoms. She states that it was a sudden pain that had sharp shooting sensations along with pressure. Patient states that it does affect her ability perform activities of daily living. She states that she experiences most of the pain while she is sitting. Patient does also state that she has chronic low back pain and a history of SI issues. She also experiences significant leg cramps that are worse at night. Patient denies any previous restless leg medications. She does state that she uses compression socks and drinks Gatorade and this does help a little with it. Patient states the only back surgery she has had was to remove a synovial cyst. Patient has tried and failed conservative therapy such as oral medication, heat and ice, topicals, at home stretching exercise for longer than 4 weeks. She is interested in any help we may be able to provide. Patient is not on any scheduled medications. Her Sergio has been reviewed and is appropriate. CC: Gema Cotton APRN [facility] Disclaimer: The information contained in this section may have been updated after the patient was seen, as this information can be updated by other users. Medical History (Updated 01/24/23 @ 13:36 by Gema Cotton APRN) Hyperlipidemia Impacted cerumen of right ear Sacroiliitis Social History Smoking Status: Never smoker second hand exposure: No alcohol intake: never substance use type: denies use current occupational status: retired Travel in the last 8 weeks: None household members: spouse housing: house current occupational exposures/hazards: No caffeine: Yes Review of Systems Review of Systems Review of systems:: pertinent systems reviewed and negative unless documented below Review of systems (narrative): Review of Systems: General: No recent weight changes, no fever, no sleep disturbances Respiratory: No cough, no shortness of air, no recurring pulmonary infections Cardiovascular/peripheral vascular: No chest pain, no palpitations, no edema, no shortness of breath Gastrointestinal: No new onset incontinence, normal bowel movements reported Genitourinary: No new onset incontinence Musculoskeletal: Left buttocks pain, low back pain Psychiatric: [Normal mood/affect] Neurological: [Denies weakness in extremities], [denies balance issues] Meds Home Medications and Allergies Home Medications Medication Instructions Recorded Confirmed Type amlodipine 10 mg tablet 10 mg PO DAILY High blood pressure 07/03/17 10/17/22 History 90 days celecoxib 200 mg capsule 200 mg PO DAILY Arthritis 90 days 07/03/17 10/17/22 History lisinopril 20 mg tablet 20 mg PO DAILY High blood pressure 07/03/17 10/17/22 History 90 days omega 6-orq-kis-fish oil 1,000 mg 2,000 mg PO DAILY Supplement 08/03/18 10/17/22 History (120 mg-180 mg) capsule benzonatate 100 mg capsule 100 mg PO TIDP PRN Cough #30 caps 02/03/22 10/17/22 Rx benzonatate 100 mg capsule 100 mg PO TID PRN cough #30 caps 05/01/22 10/17/22 Rx prednisone 10 mg tablet 10 mg PO BID 5 days #10 tabs 05/01/22 10/17/22 Rx benzonatate 100 mg cap
[2023-01-24 14:36] VITALS: BP 154/78; PULSE 92; RESP 18; O2SAT 95; BMI 32.3
== END | disposition home or self-care (01) ==
PROVIDERS: PCP Family Medicine; Visit Provider Nurse Practitioner Family
DX: M25.512 Pain in left shoulder (principal); G89.29 Other chronic pain; M79.18 Myalgia, other site; M54.42 Lumbago with sciatica, left side
CPT/HCPCS: 99202; G0463

== ENCOUNTER 2023-02-16 10:57 | Day surgery (SDC) | payer MEDICARE, SELFPAY ==
[2023-02-16 11:17] VITALS: BP 121/89; PULSE 75; RESP 18; O2SAT 96; BMI 31.3
[2023-02-16 11:31] VITALS: BP 160/70; PULSE 85; O2SAT 94
[2023-02-16 11:34] VITALS: BP 160/70; PULSE 81; O2SAT 94
--- NOTE | 2023-02-16 11:39 | EXP.PAIN.PRO ---
Procedure Date: 02/16/23 Time: 11:20 Anesthesiologist:: Yahir Cleevland CRNA Complications:: None Pre-procedure Diagnosis:: Degenerative disc lumbar spine multilevels. Lumbar radiculopathy. Lumbar postlaminectomy syndrome. Lumbar disc bulge multilevel lumbar spine. Lumbar facet hypertrophy lumbar spine. Lumbar spondylosis. Post-procedure Diagnosis:: Same. Indications for Procedure:: Patient is a pleasant 82-year-old female comes our clinic today for a caudal epidural steroid injection. Patient reports low back pain she describes as constant, dull, achy. Patient also reports left hip and leg radicular symptoms to the knee. Patient rates her pain 7/10. Procedure Details:: Procedure: Caudal epidural steroid injection under fluoroscopy Informed consent was obtained and the risks and benefits of the procedure were explained to the patient. The patient was taken to the procedure room and noninvasive monitors placed, including noninvasive blood pressure cuff and pulse oximeter. The back was viewed using C-arm Fluoroscopy and prepped using Chloraprep as a cleansing solution and the caudal interspace was palpated. Skin and subcutaneous tissues were anesthetized using lidocaine 1.5% and a 25-gauge needle. After this, a 25-gauge 3 and half inch spinal needle was placed into the caudal interspace and advanced using fluoroscopic guidance. After confirmation of needle placement in the caudal space, with dye, a solution containing normal saline, 6 mL and Depo-Medrol 80 mg were incrementally injected into the caudal epidural space. The patient tolerated the procedure well with no complications. The patient was observed in the Pain Clinic and then discharged home neurologically intact. Plan and Disposition:: Patient was discharged without incident.
[2023-02-16 11:40] VITALS: BP 148/72; PULSE 67; RESP 16; O2SAT 96
== END 2023-02-16 11:40 | disposition home or self-care (01) ==
PROVIDERS: PCP Family Medicine; Visit Provider Nurse Anesthetist, Certified Registered
DX: M51.16 Intervertebral disc disorders with radiculopathy, lumbar region (principal); M96.1 Postlaminectomy syndrome, not elsewhere classified; M51.26 Other intervertebral disc displacement, lumbar region; M47.26 Other spondylosis with radiculopathy, lumbar region
CPT/HCPCS: 62323; J1040; Q9966

== ENCOUNTER → 2023-03-06 13:27 | Outpatient (POV) | payer MEDICARE, SELFPAY ==
[2023-03-06 13:51] VITALS: BP 142/76; PULSE 82; RESP 18; O2SAT 97; BMI 29.7
--- NOTE | 2023-03-06 14:13 | A.OFFVIS_ITS ---
[facility] Pain Management SOAP Note Subjective:: This patient is a very pleasant 82-year-old female comes our clinic today for follow-up visit receiving caudal epidural steroid injection. Patient reports 100% improvement terms of her overall low back pain as well as bilateral hip and leg radicular symptoms. Patient very pleased with the results. Her Sergio #[id number] is been reviewed and appropriate. Objective:: Patient is awake alert Cody x 3. In no acute distress. Flexion-extension lumbar spine normal. Deep tendon reflexes upper and lower extremities normal. Motor strength upper and lower extremities normal. There is no gross sensory deficit. Gait is normal. Assessment:: Degenerative disc lumbar spine multilevels. Lumbar radiculopathy. Lumbar postlaminectomy syndrome. Lumbar disc bulge multilevel. Lumbar facet hypertr ophy. Lumbar spondylosis. Plan:: Patient return to see us as needed. [facility] Disclaimer: The information contained in this section may have been updated after the patient was seen, as this information can be updated by other users. Medical History Hyperlipidemia Impacted cerumen of right ear Sacroiliitis Family History Other Unknown family medical history Social History Smoking Status: Never smoker second hand exposure: No alcohol intake: never substance use type: denies use current occupational status: retired Travel in the last 8 weeks: None household members: spouse housing: house current occupational exposures/hazards: No caffeine: Yes
== END ==
LOC: SC.PAIN 13:29
PROVIDERS: PCP Family Medicine; Visit Provider Nurse Anesthetist, Certified Registered
DX: M51.16 Intervertebral disc disorders with radiculopathy, lumbar region (principal); M96.1 Postlaminectomy syndrome, not elsewhere classified; M51.26 Other intervertebral disc displacement, lumbar region; M47.26 Other spondylosis with radiculopathy, lumbar region
CPT/HCPCS: 99212; G0463

== ENCOUNTER 2023-05-30 14:37 | Outpatient (POV) | payer MEDICARE, SELFPAY ==
--- NOTE | 2023-05-30 15:07 | A.OFFVIS_ITS ---
[facility] Pain Management SOAP Note Subjective:: Patient is a pleasant 83-year-old female who presents today for follow-up. Today she rates her pain a 2 out of 10. Patient states her left shoulder is starting to be more bothersome. She describes this as an aching, throbbing sensation that is worse with increased activity or ambulation. She does state the pain interferes with her ability perform activities of daily living such as cooking or cleaning or even simple range of motion exercises. She is interested in injection therapy. Patient states she has gotten 2 other injections in the shoulder before from an outside provider and it has helped. Patient states it has been approximately 4 months since her last intra-articular injection. She does state that in the past she has gotten at least 50% improvement or more from these injections. Patient did previously get a caudal epidural in the past for her left buttocks pain that did provide 100% relief and has continued to help. She states that that injection did her getting however it was very short-lived and then she is continue to do well with that. She states that she cannot get out of her house well her overall improvement has been following that injection. Her Sergio has been reviewed and is appropriate. Review of Systems: General: No recent weight changes, no fever, no sleep disturbances Respiratory: No cough, no shortness of air, no recurring pulmonary infections Cardiovascular/peripheral vascular: No chest pain, no palpitations, no edema, no shortness of breath Gastrointestinal: No new onset incontinence, normal bowel movements reported Genitourinary: No new onset incontinence Musculoskeletal: [Left shoulder pain Psychiatric: [Normal mood/affect] Neurological: [Denies weakness in extremities], [denies balance issues] Objective:: Physical Exam: General: Alert and oriented x3, no acute distress, pleasant and cooperative Lungs: Respirations even and unlabored, symmetrical chest expansion Eyes: PERRL Musculoskeletal: Flexion and extension of left shoulder somewhat guarded secondary to pain, [antalgic gait noted] Neurological: Speech clear, no gross sensory deficit Assessment:: 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 I have discussed with the patient that she may benefit from intra- articular shoulder injection. Risk and benefits were discussed with patient and she would like to proceed forward with this plan of care. We will schedule the patient for left shoulder intra-articular injection. Patient has been instructed to contact the clinic with any concerns before the next appointment. Dr. Elizondo has reviewed this note and agrees with this plan of care. This note was dictated using voice recognition software and make contain errors or omissions. [facility] Disclaimer: The information contained in this section may have been updated after the patient was seen, as this information can be updated by other users. Medical History Sacroiliitis Impacted cerumen of right ear Hyperlipidemia Family History Other Unknown family medical history Social History Smoking Status: Never smoker second hand exposure: No alcohol intake: never substance use type: denies use current occupational status: retired Travel in the last 8 weeks: None household members: spouse housing: house current occupational exposures/hazards: No caffeine: Yes
[2023-05-30 15:44] VITALS: BP 132/68; PULSE 74; RESP 18; O2SAT 95; BMI 29.0
== END 2023-05-30 23:59 ==
LOC: SC.PAIN 14:37
PROVIDERS: PCP Family Medicine; Visit Provider Nurse Practitioner Family
DX: M51.36 Other intervertebral disc degeneration, lumbar region (principal); M79.18 Myalgia, other site; M25.512 Pain in left shoulder; G89.29 Other chronic pain
CPT/HCPCS: 99212; G0463

== ENCOUNTER 2023-07-03 08:38 | Day surgery (SDC) | payer MEDICARE, SELFPAY ==
[2023-07-03 09:15] VITALS: BP 159/83; PULSE 71; RESP 18; TEMP 36.3; O2SAT 96; BMI 28.1
[2023-07-03] MEDS: methylPREDNISolone ACETATE 80MG/ML VIAL 80 MG (09:36)
[2023-07-03] MEDS: BUPIVACAINE 0.25% 10ML INJ 25 MG IJ (09:36)
[2023-07-03 09:37] VITALS: BP 158/75; PULSE 64; RESP 18; O2SAT 96
[2023-07-03] MEDS: LIDOCAINE 1% 5ML PF VIAL 5 ML (09:37)
[2023-07-03 09:38] VITALS: BP 158/75; PULSE 64; RESP 18; O2SAT 96
[2023-07-03 09:42] VITALS: BP 176/80; PULSE 66; RESP 16; O2SAT 96
--- NOTE | 2023-07-03 09:48 | P.PCN_ITS ---
Procedure Date: 07/03/23 Time: 09:15 Anesthesiologist:: Yahir Cleveland CRNA Complications:: None Pre-procedure Diagnosis:: DJD left shoulder. Chronic left shoulder pain. Post-procedure Diagnosis:: Same. Indications for Procedure:: Patient is a very pleasant 83-year-old female that comes to our clinic today for left intra-articular shoulder injection. Patient has 5/5 strength in the left arm. However she reports limited range of motion secondary to left shoulder pain. She rates her pain 8/10 Procedure Details:: Procedure Details: Left shoulder intra-articular injection Informed consent was obtained risk and benefits of the procedure were explained to the patient. Patient was taken to the procedure room. The left shoulder was prepped using ChloraPrep. A 25-gauge needle was used first anteriorly, laterally, and then posteriorly to inject 10 mL bupivacaine 0.25% and Depo- Medrol 40 mg. Patient tolerated procedure well with no complications. Plan and Disposition:: Patient was discharged without incident.
== END 2023-07-03 09:42 | disposition home or self-care (01) ==
LOC: SC.PAINP 08:39
PROVIDERS: PCP Family Medicine; Visit Provider Nurse Anesthetist, Certified Registered
DX: M19.012 Primary osteoarthritis, left shoulder (principal); M25.512 Pain in left shoulder; G89.29 Other chronic pain
CPT/HCPCS: 20610; J1010

== ENCOUNTER 2023-07-18 10:16 | Outpatient (POV) | payer MEDICARE, SELFPAY ==
[2023-07-18 10:39] VITALS: BP 149/70; PULSE 64; RESP 18; O2SAT 97; BMI 29.0
--- NOTE | 2023-07-18 10:58 | EXP.PAIN.SOA ---
[facility] Pain Management SOAP Note Subjective:: Patient is a pleasant 83-year-old female who presents today for follow-up of left intra-articular shoulder injection on 07/03/2023. Patient rates her pain today a 0 out of 10. She states that she has had at least 80% improvement following this injection and feels like it is still helping. She states that she has been able to increase her activity with overall improved function and much better range of motion. Her Sergio has been reviewed and is appropriate. Review of Systems: General: No recent weight changes, no fever, no sleep disturbances Respiratory: No cough, no shortness of air, no recurring pulmonary infections Cardiovascular/peripheral vascular: No chest pain, no palpitations, no edema, no shortness of breath Gastrointestinal: No new onset incontinence, normal bowel movements reported Genitourinary: No new onset incontinence Musculoskeletal: Low back pain Psychiatric: [Normal mood/affect] Neurological: [Denies weakness in extremities], [denies balance issues] Objective:: Physical Exam: General: Alert and oriented x3, no acute distress, pleasant and cooperative Lungs: Respirations even and unlabored, symmetrical chest expansion Eyes: PERRL Musculoskeletal: Flexion and extension of lumbar [spine] somewhat guarded secondary to pain, [antalgic gait noted] Neurological: Speech clear, no gross sensory deficit Assessment:: 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 Patient will return to clinic in 3 months for reevaluation of symptoms and plan of care. Patient has been instructed to contact the clinic with any concerns before the next appointment. Dr. Elizondo has reviewed this note and agrees with this plan of care. This note was dictated using voice recognition software and make contain errors or omissions. [facility] Disclaimer: The information contained in this section may have been updated after the patient was seen, as this information can be updated by other users. Medical History Sacroiliitis Impacted cerumen of right ear Hyperlipidemia Family History Other Unknown family medical history Social History Smoking Status: Never smoker second hand exposure: No alcohol intake: never substance use type: denies use current occupational status: retired Travel in the last 8 weeks: None household members: spouse housing: house current occupational exposures/hazards: No caffeine: Yes
== END 2023-07-18 23:59 | disposition home or self-care (01) ==
LOC: SC.PAIN 10:17
PROVIDERS: PCP Family Medicine; Visit Provider Nurse Practitioner Family
DX: M51.36 Other intervertebral disc degeneration, lumbar region (principal); M79.18 Myalgia, other site; M25.512 Pain in left shoulder; G89.29 Other chronic pain
CPT/HCPCS: 99212; G0463

== ENCOUNTER 2023-10-18 09:23 | Outpatient (POV) | payer MEDICARE, SELFPAY ==
--- NOTE | 2023-10-18 09:33 | EXP.PAIN.SOA ---
[facility] Disclaimer: The information contained in this section may have been updated after the patient was seen, as this information can be updated by other users. Medical History (Updated 08/27/23 @ 09:00 by RAJNI Delatorre) Dizziness Sacroiliitis Impacted cerumen of right ear Hyperlipidemia Family History Other Unknown family medical history Social History Smoking Status: Never smoker second hand exposure: No alcohol intake: never substance use type: denies use current occupational status: retired Travel in the last 8 weeks: None household members: spouse housing: house current occupational exposures/hazards: No caffeine: Yes PM Subjective & Objective Subjective Subjective:: Patient is a pleasant 83-year-old female who presents today for 3-month follow-up. Patient rates her pain today a 0 out of 10. She states she still continues to get significant relief from her left intra-articular shoulder injection from July 02. Patient states that overall she is doing well and denies any other new changes.Her Sergio has been reviewed and is appropriate. Review of Systems: General: No recent weight changes, no fever, no sleep disturbances Respiratory: No cough, no shortness of air, no recurring pulmonary infections Cardiovascular/peripheral vascular: No chest pain, no palpitations, no edema, no shortness of breath Gastrointestinal: No new onset incontinence, normal bowel movements reported Genitourinary: No new onset incontinence Musculoskeletal: Left shoulder pain Psychiatric: [Normal mood/affect] Neurological: [Denies weakness in extremities], [denies balance issues] Pain at rest (0-10 scale): 0 Objective Objective:: Physical Exam: General: Alert and oriented x3, no acute distress, pleasant and cooperative Lungs: Respirations even and unlabored, symmetrical chest expansion Eyes: PERRL Musculoskeletal: Flexion and extension of left shoulder within normal limits Neurological: Speech clear, no gross sensory deficit Has patient had previous pain injection?: No Conservative treatment options previously tried: Home exercise plan Length of treatment: Longer than 6 weeks Meds Home Medications and Allergies Home Medications ?Medication ?Instructions ?Recorded ?Confirmed ?Type amlodipine 10 mg tablet 10 mg PO DAILY High blood pressure 07/03/17 08/27/23 History 90 days celecoxib 200 mg capsule 200 mg PO DAILY Arthritis 90 days 07/03/17 08/27/23 History lisinopril 20 mg tablet 20 mg PO DAILY High blood pressure 07/03/17 08/27/23 History 90 days methenamine hippurate 1 gram tablet 0.5 g PO BID 08/16/23 08/27/23 History multivitamin 1 tab PO DAILY 08/16/23 08/27/23 History meclizine 12.5 mg tablet 12.5 mg PO TID PRN dizziness #21 08/27/23 08/27/23 Rx tabs New Prescriptions to Start Prescriptions: Allergies Allergy/AdvReac Type Severity Reaction Status Date / Time No Known Allergies Allergy Verified 08/27/23 08:50 Assessment and Plan *Assessment and plan (1) Left shoulder pain: Status: Acute Qualifiers: Chronicity: chronic Qualified Code(s): M25.512 - Pain in left shoulder; G89.29 - Other chronic pain Category: Medical Code(s): M25.512 - Pain in left shoulder Plan Patient continues to do well from her shoulder injection and does not require any additional injection therapy. Patient will return to clinic in 6 months for reevaluation of symptoms and plan of care. Patient has been instructed to contact the clinic with any concerns before the next appointment. Dr. Elizondo has reviewed this note and agrees with this plan of care. This note was dictated using voice recognition software and make contain errors or omissions. All injections are used with Lidocaine or Bupivacaine and Depo Medrol.
[2023-10-18 10:09] VITALS: BP 147/86; PULSE 71; RESP 18; O2SAT 98; BMI 28.3
== END 2023-10-18 23:59 | disposition home or self-care (01) ==
LOC: SC.PAIN 09:23
PROVIDERS: PCP Family Medicine; Visit Provider Nurse Practitioner Family
DX: M25.512 Pain in left shoulder (principal); G89.29 Other chronic pain
CPT/HCPCS: 99212; G0463

== ENCOUNTER 2024-03-28 14:02 | Outpatient (POV) | payer MEDICARE, SELFPAY ==
--- NOTE | 2024-03-28 14:40 | EXP.PAIN.SOA ---
[facility] Disclaimer: The information contained in this section may have been updated after the patient was seen, as this information can be updated by other users. Medical History (Updated 08/27/23 @ 09:00 by RAJNI Delatorre) Dizziness Sacroiliitis Impacted cerumen of right ear Hyperlipidemia Family History Other Unknown family medical history Social History Smoking Status: Never smoker second hand exposure: No alcohol intake: never substance use type: denies use current occupational status: retired Travel in the last 8 weeks: None household members: spouse housing: house current occupational exposures/hazards: No caffeine: Yes PM Subjective & Objective Subjective Subjective:: Patient is a pleasant 83-year-old female who presents today for worsening pain in her left shoulder. She rates her pain today at a 5 out of 10. She denies any new injury or trauma. She does state that she feels like her last intra-articular shoulder injection has officially worn off. Patient states that she did notice it several weeks ago however it was still somewhat manageable. She does state the pain is now more severe and is starting to interfere with her ability perform activities of daily living such as cooking and cleaning. Patient did have her intra-articular shoulder injection done in June 2023 and provided significant relief of almost 100% up until about the last month. Patient did have improved function and would like to get scheduled for a repeat injection as soon as possible. Her Sergio has been reviewed and is appropriate. Review of Systems: General: No recent weight changes, no fever, no sleep disturbances Respiratory: No cough, no shortness of air, no recurring pulmonary infections Cardiovascular/peripheral vascular: No chest pain, no palpitations, no edema, no shortness of breath Gastrointestinal: No new onset incontinence, normal bowel movements reported Genitourinary: No new onset incontinence Musculoskeletal: Left shoulder pain Psychiatric: [Normal mood/affect] Neurological: [Denies weakness in extremities], [denies balance issues] Pain at rest (0-10 scale): 5 Objective Objective:: Physical Exam: General: Alert and oriented x3, no acute distress, pleasant and cooperative Lungs: Respirations even and unlabored, symmetrical chest expansion Eyes: PERRL Musculoskeletal: Flexion and extension of left shoulder somewhat guarded secondary to pain, [antalgic gait noted] Neurological: Speech clear, no gross sensory deficit Has patient had previous pain injection?: No Conservative treatment options previously tried: Home exercise plan Length of treatment: Longer than 12 weeks Meds Home Medications and Allergies Home Medications ?Medication ?Instructions ?Recorded ?Confirmed ?Type amlodipine 10 mg tablet 10 mg PO DAILY High blood pressure 07/03/17 08/27/23 History 90 days celecoxib 200 mg capsule 200 mg PO DAILY Arthritis 90 days 07/03/17 08/27/23 History lisinopril 20 mg tablet 20 mg PO DAILY High blood pressure 07/03/17 08/27/23 History 90 days methenamine hippurate 1 gram tablet 0.5 g PO BID 08/16/23 08/27/23 History multivitamin 1 tab PO DAILY 08/16/23 08/27/23 History meclizine 12.5 mg tablet 12.5 mg PO TID PRN dizziness #21 08/27/23 08/27/23 Rx tabs New Prescriptions to Start Prescriptions: Allergies Allergy/AdvReac Type Severity Reaction Status Date / Time No Known Allergies Allergy Verified 08/27/23 08:50 Assessment and Plan *Assessment and plan (1) Left shoulder pain: Status: Acute Qualifiers: Chronicity: chronic Qualified Code(s): M25.512 - Pain in left shoulder; G89.29 - Other chronic pain Category: Medical Code(s): M25.512 - Pain in left shoulder Plan Patient is experiencing significant pain in her left shoulder with limited range of motion. Patient did previously have a left shoulder intra-articular injection in June that provided 100% improvement lasting 8 months. Patient has continued conservative treatment with no additional changes including at home stretching exercise for longer than 12 weeks. Patient will be scheduled for repeat left intra-articular shoulder injection. This will be done without fluoroscopic guidance or ultrasound. Patient has been instructed to contact the clinic with any concerns before the next appointment. Dr. Elizondo has reviewed this note and agrees with this plan of care. This note was dictated using voice recognition software and make contain errors or omissions. All injections are used with Lidocaine, Bupivacaine and Depo Medrol. Occasionally urine drug screen is needed to verify patient's compliance with our office pain contract. This is ordered based off specific treatments related to chronic pain with the potential to abuse certain medications.
[2024-03-28 15:10] VITALS: BP 140/78; PULSE 86; RESP 14; O2SAT 95; BMI 28.3
== END 2024-03-28 23:59 | disposition home or self-care (01) ==
LOC: SC.PAIN 14:05
PROVIDERS: PCP Family Medicine; Visit Provider Nurse Practitioner Family
DX: M25.512 Pain in left shoulder (principal); G89.29 Other chronic pain; Z73.89 Other problems related to life management difficulty
CPT/HCPCS: 99212; G0463

== ENCOUNTER 2024-04-08 11:00 | Day surgery (SDC) | payer MEDICARE, SELFPAY ==
[2024-04-08 12:00] VITALS: BP 127/69; PULSE 76; RESP 16; TEMP 36.9; O2SAT 98; BMI 26.6
[2024-04-08 12:33] VITALS: BP 141/69; PULSE 81; RESP 16; O2SAT 97
--- NOTE | 2024-04-08 12:45 | EXP.PAIN.PRO ---
Procedure Date: 04/08/24 Time: 12:25 Anesthesiologist:: Yahir Cleveland CRNA Complications:: None Pre-procedure Diagnosis:: DJD left shoulder. Chronic left shoulder pain. Post-procedure Diagnosis:: Same. Indications for Procedure:: Patient is a pleasant 83-year-old female who comes our clinic today for a left intra-articular shoulder injection of cortisone and local anesthetic. Patient reports 10 months of relief from her previous injection in the left shoulder. She describes left shoulder pain as constant, dull, aching. She rates her pain 7/10. She has 5/5 strength in the left arm. However, limited range of motion secondary to left shoulder pain. Procedure Details:: Procedure Details: Left shoulder intra-articular injection Informed consent was obtained risk and benefits of the procedure were explained to the patient. Patient was taken to the procedure room. The Left shoulder was prepped using ChloraPrep. A 25-gauge needle was used posteriorly to inject 10 mL bupivacaine 0.25% and Depo-Medrol 40 mg. Patient tolerated procedure well with no complications. Plan and Disposition:: Patient was discharged without incident.
[2024-04-08] MEDS: methylPREDNISolone ACETATE 80MG/ML VIAL 80 MG (12:59)
[2024-04-08] MEDS: BUPIVACAINE 0.25% 10ML INJ 25 MG IJ (12:59)
[2024-04-08] MEDS: LIDOCAINE 1% 5ML PF VIAL 5 ML (12:59)
== END 2024-04-08 12:33 | disposition home or self-care (01) ==
PROVIDERS: PCP Family Medicine; Visit Provider Nurse Anesthetist, Certified Registered
DX: M19.012 Primary osteoarthritis, left shoulder (principal); M25.512 Pain in left shoulder; G89.29 Other chronic pain
CPT/HCPCS: 20610; J1010

== ENCOUNTER 2024-04-23 13:52 | Outpatient (POV) | payer MEDICARE, SELFPAY ==
--- NOTE | 2024-04-23 14:10 | A.OFFVIS_ITS ---
[facility] Disclaimer: The information contained in this section may have been updated after the patient was seen, as this information can be updated by other users. Medical History Dizziness Sacroiliitis Impacted cerumen of right ear Hyperlipidemia Family History Other Unknown family medical history Social History Smoking Status: Never smoker second hand exposure: No alcohol intake: never substance use type: denies use current occupational status: other Travel in the last 8 weeks: None household members: spouse housing: house current occupational exposures/hazards: No caffeine: Yes Have you lived/traveled outside US in past 30 days?: No Contact w/someone who lives/traveled outside US past 30 days?: No Exposure to someone with infectious disease in past 14 days?: No Do you have a fever (greater than 100.4 F or 38 C)?: No Have you tested positive for COVID-19: No Exposed to someone with COVID-19 in past 14 days?: No Do you have a sore throat?: No Do you have a cough?: No Do you have any weakness?: No Do you have any diarrhea?: No Are you experiencing any unusual bleeding?: No Do you have any muscle aches/pain?: No Do you have any abdominal pain?: No Are you experiencing loss of taste or smell?: No PM Subjective & Objective Subjective Subjective:: Patient is a pleasant 83-year-old female who presents today for follow-up of left intra-articular shoulder injection on 04/08/2024. Today she rates her pain a 0 out of 10. She states she has had at least 75 to 85% improvement following this injection and feels like it is still working well. She states that she does still have daily aches and pains however it is not nearly as severe and that it is very manageable now. Patient did get quite a bit of improvement with her last injection lasting longer than 8 months. Her Sergio has been reviewed and is appropriate. Review of Systems: General: No recent weight changes, no fever, no sleep disturbances Respiratory: No cough, no shortness of air, no recurring pulmonary infections Cardiovascular/peripheral vascular: No chest pain, no palpitations, no edema, no shortness of breath Gastrointestinal: No new onset incontinence, normal bowel movements reported Genitourinary: No new onset incontinence Musculoskeletal: Left shoulder pain Psychiatric: [Normal mood/affect] Neurological: [Denies weakness in extremities], [denies balance issues] Pain at rest (0-10 scale): 0 Objective Objective:: Physical Exam: General: Alert and oriented x3, no acute distress, pleasant and cooperative Lungs: Respirations even and unlabored, symmetrical chest expansion Eyes: PERRL Musculoskeletal: Flexion and extension of left shoulder somewhat guarded secondary to pain, [antalgic gait noted] Neurological: Speech clear, no gross sensory deficit Has patient had previous pain injection?: Yes Percent improvement in pain since last injection: 75 to 85% improvement Conservative treatment options previously tried: Home exercise plan Length of treatment: Longer than 12 weeks Meds Home Medications and Allergies Home Medications ?Medication ?Instructions ?Recorded ?Confirmed ?Type amlodipine 10 mg tablet 10 mg PO DAILY High blood pressure 07/03/17 03/28/24 History 90 days celecoxib 200 mg capsule 200 mg PO DAILY Arthritis 90 days 07/03/17 03/28/24 History lisinopril 20 mg tablet 20 mg PO DAILY High blood pressure 07/03/17 03/28/24 History 90 days methenamine hippurate 1 gram tablet 0.5 g PO BID 08/16/23 03/28/24 History multivitamin 1 tab PO DAILY 08/16/23 03/28/24 History meclizine 12.5 mg tablet 12.5 mg PO TID PRN dizziness #21 08/27/23 03/28/24 Rx tabs New Prescriptions to Start Prescriptions: Allergies Allergy/AdvReac Type Severity Reaction Status Date / Time No Known Allergies Allergy Verified 08/27/23 08:50 Assessment and Plan *Assessment and plan (1) Left shoulder pain: Status: Acute Qualifiers: Chronicity: chronic Qualified Code(s): M25.512 - Pain in left shoulder; G89.29 - Other chronic pain Category: Medical Code(s): M25.512 - Pain in left shoulder Plan Patient has had significant improvement following her shoulder injection and does not require any additional injection therapy at this time. Patient did get longstanding relief with her last intra-articular injection and I have discussed with her that she can call us for her next appointment. Patient agrees with this plan of care. Patient has been instructed to contact the clinic with any concerns before the next appointment. Dr. Elizondo has reviewed this note and agrees with this plan of care. This note was dictated using voice recognition software and make contain errors or omissions. All injections are used with Lidocaine, Bupivacaine and Depo Medrol. Occasionally urine drug screen is needed to verify patient's compliance with our office pain contract. This is ordered based off specific treatments related to chronic pain with the potential to abuse certain medications.
[2024-04-23 14:19] VITALS: BP 133/79; PULSE 69; RESP 14; O2SAT 98; BMI 27.3
== END 2024-04-23 23:59 | disposition home or self-care (01) ==
LOC: SC.PAIN 13:53
PROVIDERS: PCP Family Medicine; Visit Provider Nurse Practitioner Family
DX: M25.512 Pain in left shoulder (principal); G89.29 Other chronic pain
CPT/HCPCS: 99212; G0463

== ENCOUNTER 2024-06-24 13:59 | Outpatient (POV) | payer MEDICARE, SELFPAY ==
--- NOTE | 2024-06-24 14:14 | A.OFFVIS_ITS ---
[facility] Disclaimer: The information contained in this section may have been updated after the patient was seen, as this information can be updated by other users. Medical History (Updated 04/28/24 @ 09:27 by Kathleen Maya MA) Bilateral impacted cerumen Hx of breast cancer Dizziness Sacroiliitis Impacted cerumen of right ear Hyperlipidemia Surgical History (Updated 04/28/24 @ 09:18 by Kathleen Maya MA) Hx of bilateral mastectomy Family History Other Unknown family medical history Social History Smoking Status: Never smoker second hand exposure: No alcohol intake: never substance use type: denies use current occupational status: retired Travel in the last 8 weeks: None household members: spouse housing: house current occupational exposures/hazards: No caffeine: Yes PM Subjective & Objective Subjective Subjective:: Patient is a pleasant 84-year-old female who presents today for worsening left shoulder pain. She rates her pain a 9 out of 10. She denies any new injury or fall. She does state that she feels like the last injection has worn off and the pain is just more severe. Patient does state that she feels like the pain is just really aggravated currently and it feels a little different than what it had previously been. Patient states before she had more trouble reaching [id number] with her arm however today it is more difficult reaching up. Patient states she can do it but it does seem to cause more pain. Patient states that she has not done anything to cause any worsening symptoms. She felt like this last injection although it did help did not do nearly as well as once in the past. She does state that she takes Celebrex 200 mg daily and this does help with some of her daily aches and pains including the arthritis. Her Sergio has been reviewed and is appropriate. Review of Systems: General: No recent weight changes, no fever, no sleep disturbances Respiratory: No cough, no shortness of air, no recurring pulmonary infections Cardiovascular/peripheral vascular: No chest pain, no palpitations, no edema, no shortness of breath Gastrointestinal: No new onset incontinence, normal bowel movements reported Genitourinary: No new onset incontinence Musculoskeletal: Left shoulder pain Psychiatric: [Normal mood/affect] Neurological: [Denies weakness in extremities], [denies balance issues] Pain at rest (0-10 scale): 9 Objective Objective:: Physical Exam: General: Alert and oriented x3, no acute distress, pleasant and cooperative Lungs: Respirations even and unlabored, symmetrical chest expansion Eyes: PERRL Musculoskeletal: Flexion and extension of left shoulder somewhat guarded secondary to pain, [antalgic gait noted] Neurological: Speech clear, no gross sensory deficit FINDINGS: LEFT SHOULDER 3 views of the left shoulder were obtained. There is no acute fracture or dislocation. There are mild degenerative changes of the acromioclavicular and glenohumeral joints. There is no soft tissue abnormality. IMPRESSION: Mild degenerative change, similar to the prior exam. Reviewed, Interpreted and Dictated by Gagandeep Alaniz III, MD Transcribed by Simin Ramirez Authenticated and [facility] Has patient had previous pain injection?: No Conservative treatment options previously tried: Home exercise plan Length of treatment: Longer than 12 weeks Meds Home Medications and Allergies Home Medications ?Medication ?Instructions ?Recorded ?Confirmed ?Type amlodipine 10 mg tablet 10 mg PO DAILY High blood pressure 07/03/17 04/28/24 History 90 days celecoxib 200 mg capsule 200 mg PO DAILY Arthritis 90 days 07/03/17 04/28/24 History lisinopril 20 mg tablet 20 mg PO DAILY High blood pressure 07/03/17 04/28/24 History 90 days methenamine hippurate 1 gram tablet 0.5 g PO BID 08/16/23 04/28/24 History New Prescriptions to Start Prescriptions: Allergies Allergy/AdvReac Type Severity Reaction Status Date / Time No Known Allergies Allergy Verified 04/28/24 09:14 Assessment and Plan *Assessment and plan (1) Left shoulder pain: Status: Acute Qualifiers: Chronicity: chronic Qualified Code(s): M25.512 - Pain in left shoulder; G89.29 - Other chronic pain Category: Medical Code(s): M25.512 - Pain in left shoulder Plan I did go over with the patient due to her worsening pain and that it may be beneficial to order some updated imaging. Patient was thinking that she just got updated imaging in March. I did go back and look and it was just an x- ray. I will proceed forward in order a MRI without contrast. I did also discuss with the patient that she may benefit from repeat intra-articular left shoulder injection. Risk and benefits were discussed with patient and she would like to proceed forward with this plan of care. Patient has had chronic left shoulder pain for longer than 6 months. Patient's last shoulder injection was at the beginning of April that did provide 75 to 85% improvements however really only gave closer to a month and a half 2 months of relief. Patient has had injections in the past that have worked much more effective lasting longer. We did also review over the possibility of sending referral to orthopedics for surgical evaluation due to this being a very chronic issue. Patient would like to proceed forward with this option just so she knows her options. I did debt counselor the patient that typically orthopedics does like to see advanced imaging to review. Patient will be sent to Dr. Rich pace for evaluation. Patient will be scheduled for left shoulder intra-articular injection. Patient has been instructed to contact the clinic with any concerns before the next appointment. Dr. Elizondo has reviewed this note and agrees with this plan of care. This note was dictated using voice recognition software and make contain errors or omissions. All injections are used with Lidocaine, Bupivacaine and dexamethasone. Occasionally urine drug screen is needed to verify patient's compliance with our office pain contract. This is ordered based off specific treatments related to chronic pain with the potential to abuse certain medications.
[2024-06-24 14:17] VITALS: BP 135/73; PULSE 86; RESP 18; O2SAT 96; BMI 27.3
== END 2024-06-24 23:59 | disposition home or self-care (01) ==
LOC: SC.PAIN 14:00
PROVIDERS: PCP Family Medicine; Visit Provider Nurse Practitioner Family
DX: M25.512 Pain in left shoulder (principal); G89.29 Other chronic pain
CPT/HCPCS: 99212; G0463

== ENCOUNTER 2024-07-10 15:16 | Outpatient (CLI) | payer MEDICARE, SELFPAY ==
--- NOTE | 2024-07-10 15:18 | MR_ITS ---
FINAL REPORT TECHNIQUE: Multiplanar and multisequence imaging of the shoulder was obtained without contrast. CLINICAL HISTORY: LT SHOULDER PAIN, limited rom COMPARISON: None FINDINGS: Motion artifact slightly limits overall image quality. Bones and joints: There is no acute fracture, edema, or pathologic marrow replacement. Acromioclavicular joint degenerative disease is present and there is osteophytosis which narrows the supraspinatus outlet. Mild glenohumeral degenerative changes present as well. Rotator cuff: There is a full-thickness tear of the anterior supraspinatus tendon. There is a posterior full-thickness tear of the infraspinatus tendon. No subscapularis tendon tear. There is no fatty atrophy of the rotator cuff muscles. Labrum: The biceps labral complex evaluation is limited by motion artifact. The biceps labral complex is grossly intact. No labral tear is identified. The inferior glenohumeral ligament is intact. The biceps tendon is thinned and somewhat attenuated, that may be secondary to chronic tendinosis or a partial tear. Other: A joint effusion is present. There is subacromial/subdeltoid bursitis present. IMPRESSION: Full-thickness tear of the anterior supraspinatus tendon, as well as a full-thickness tear of the posterior infraspinatus tendon. No labral tear is identified. The evaluation of the biceps labral complex is limited by motion, no gross abnormality is identified. The bicipital tendon is thin and attenuated, which may be secondary to chronic tendinosis or a partial tear. Degenerative change of the acromioclavicular and glenohumeral joints. Reviewed, Interpreted and Dictated by Cleopatra Branham MD Transcribed by Hyacinth Mann Authenticated and [facility]
== END 2024-07-10 23:59 | disposition home or self-care (01) ==
PROVIDERS: PCP Family Medicine; Visit Provider Nurse Practitioner Family
DX: M25.512 Pain in left shoulder (principal)
CPT/HCPCS: 73221

== ENCOUNTER 2024-07-16 13:20 | Outpatient (POV) | payer MEDICARE, SELFPAY ==
[2024-07-16 13:40] VITALS: BP 127/67; PULSE 74; RESP 14; O2SAT 96; BMI 27.3
--- NOTE | 2024-07-16 14:01 | EXP.PAIN.SOA ---
[facility] Disclaimer: The information contained in this section may have been updated after the patient was seen, as this information can be updated by other users. Medical History (Updated 07/16/24 @ 14:03 by Gema Cotton APRN) Bilateral impacted cerumen Hx of breast cancer Dizziness Sacroiliitis Impacted cerumen of right ear Hyperlipidemia Surgical History Hx of bilateral mastectomy Family History Other Unknown family medical history Social History Smoking Status: Never smoker second hand exposure: No alcohol intake: never substance use type: denies use current occupational status: other Travel in the last 8 weeks?: None household members: spouse housing: house current occupational exposures/hazards: No caffeine: Yes PM Subjective & Objective Subjective Subjective:: Patient is a pleasant 84-year-old female who presents today for MRI follow-up of her left shoulder. Today she rates her pain a 5 out of 10. She denies any new trauma or injury. She states she is still having that chronic aching sensation. She states before it was every so often however now it is just constant with any little thing and is interfering with her ability to perform activities of daily living. Patient states that is also affecting her sleeping. Her Sergio has been reviewed and is appropriate. Review of Systems: General: No recent weight changes, no fever, no sleep disturbances Respiratory: No cough, no shortness of air, no recurring pulmonary infections Cardiovascular/peripheral vascular: No chest pain, no palpitations, no edema, no shortness of breath Gastrointestinal: No new onset incontinence, normal bowel movements reported Genitourinary: No new onset incontinence Musculoskeletal: Left shoulder pain Psychiatric: [Normal mood/affect] Neurological: [Denies weakness in extremities], [denies balance issues] Pain at rest (0-10 scale): 5 Objective Objective:: Physical Exam: General: Alert and oriented x3, no acute distress, pleasant and cooperative Lungs: Respirations even and unlabored, symmetrical chest expansion Eyes: PERRL Musculoskeletal: Flexion and extension of left shoulder somewhat guarded secondary to pain, [antalgic gait noted] Neurological: Speech clear, no gross sensory deficit Has patient had previous pain injection?: No Conservative treatment options previously tried: Home exercise plan Length of treatment: Longer than 12 weeks Meds Home Medications and Allergies Home Medications ?Medication ?Instructions ?Recorded ?Confirmed ?Type amlodipine 10 mg tablet 10 mg PO DAILY High blood pressure 07/03/17 07/16/24 History 90 days celecoxib 200 mg capsule 200 mg PO DAILY Arthritis 90 days 07/03/17 07/16/24 History lisinopril 20 mg tablet 20 mg PO DAILY High blood pressure 07/03/17 07/16/24 History 90 days methenamine hippurate 1 gram tablet 0.5 g PO BID 08/16/23 07/16/24 History New Prescriptions to Start Prescriptions: Allergies Allergy/AdvReac Type Severity Reaction Status Date / Time No Known Allergies Allergy Verified 04/28/24 09:14 Assessment and Plan *Assessment and plan (1) Left shoulder pain: Status: Acute Qualifiers: Chronicity: chronic Qualified Code(s): M25.512 - Pain in left shoulder; G89.29 - Other chronic pain Category: Medical Code(s): M25.512 - Pain in left shoulder (2) Rotator cuff tear, left: Status: Acute Category: Medical Code(s): M75.102 - Unspecified rotator cuff tear or rupture of left shoulder, not specified as traumatic Plan I did discuss with the patient regarding her MRI findings and that she was sent on to orthopedics for referral for possible surgical intervention. Patient did have a full-thickness tear along the anterior supraspinatus tendon and posterior infraspinatus tendon. Patient was counseled in future that she may still benefit from intra-articular injections. We will wait and see her after her appointment with for surgical evaluation. Patient will return to clinic in 1 month for reevaluation of symptoms and plan of care. Patient has been instructed to contact the clinic with any concerns before the next appointment. Dr. Elizondo has reviewed this note and agrees with this plan of care. This note was dictated using voice recognition software and make contain errors or omissions. All injections are used with Lidocaine, Bupivacaine and dexamethasone. Occasionally urine drug screen is needed to verify patient's compliance with our office pain contract. This is ordered based off specific treatments related to chronic pain with the potential to abuse certain medications.
== END 2024-07-16 23:59 | disposition home or self-care (01) ==
LOC: SC.PAIN 13:21
PROVIDERS: PCP Family Medicine; Visit Provider Nurse Practitioner Family
DX: M25.512 Pain in left shoulder (principal); G89.29 Other chronic pain; M75.102 Unspecified rotator cuff tear or rupture of left shoulder, not specified as traumatic; Z73.89 Other problems related to life management difficulty
CPT/HCPCS: 99212; G0463

== ENCOUNTER 2024-08-13 13:35 | Outpatient (POV) | payer MEDICARE, SELFPAY ==
--- OUTSIDE RECORDS SUMMARY | 2024-03-03 06:00 | XMS_ITS ---
[facility] Address [address] [place] [id number] Care Team Providers Care Commercial Electrician Name Role Phone Rene Noble Primary Care Provider Allergies Allergen (clinical drug ingredient) Drug/Non Drug Allergy documented on EMR Reaction Allergy Type Onset Date Status Non-steroidal anti-inflammatory agent (FN) ORAL NSAID'S (uncoded) GI upset Allergy Activ e Results Component Value Reference Range Notes Glucose (In-House) Reviewed date:03/04/2024 10:00:37 AM Interpretation:119 Normal Performing Lab: Notes/Report: 119 Normal blood glucose 119 74 - 106 mg/dL Glycohemoglobin A1c (in hous e) Reviewed date:03/04/2024 10:00:48 AM Interpretation:5.4% Normal Performing Lab: Notes/Report: 5.4% Normal glycohemoglobin 5.4% 5 - 6.5 % P-Basic Metabolic Panel (BMP ) Reviewed date:03/04/2024 10:00:23 AM Interpretation: Normal Performing Lab: Notes/Report: Test performed by [facility] [address] [place] [address] , [address], [place] [address] Ezequiel Garnett MD, Life Care [facility]anner CLIA: [id number] Sodium 143 135-145 mmol/L Potassium 4.3 3.5-5.3 mmol/L Chloride 106 97-108 mmol/L CO2 26 22-32 mmol/L Glucose 90 65-99 mg/dL BUN 21 8-23 mg/dL Creatinine 0.91 0.50-1.00 mg/dL Calcium 9.6 8.6-10.4 mg/dL eGFR by Creatinine 62 >59 mL/min/1.73m2 P-CBC With Platelet No Diffe rential Reviewed date:03/04/2024 09:59:56 AM Interpretation: Normal Performing Lab: Notes/Report: Test performed by [facility] [address] [place] [address] , [address], [place] [address] Ezequiel Garnett MD, Life Care Planner CLIA: [id number] WBC 5.2 3.8-11.5 K/uL Red Blood Cell Count (RBC) 4.75 3.60-5.30 M/mm 3 Hemoglobin (Hgb) 13.8 11.5-15.5 gm/dL Hematocrit (HCT) 41.7 35.2-46.4 % MCV 87.8 79.0-99.0 fL MCH 29.1 26.9-35.0 pg MCHC 33.1 30.4-34.8 g/dL RDW 42.1 38.6-53.8 fL Platelet Count 201 137-397 K/cumm P-Phosphorus Reviewed date:03/04/2024 10:00:10 AM Interpretation: Normal Performing Lab: Notes/Report: Test performed by [facility] [address] [place] [address] , [address], [place] [address] Ezequiel Garnett MD, Life Care Planner CLIA: [id number] Phosphorus 3.7 2.5-4.5 mg/dL REASON FOR VISIT Discuss Medications Medications Medication SIG (Take, Route, Frequency, Duration) Notes Start Date End Date Status Multiple Vitamin - 1 cap(s) orally once a day Active Celecoxib 200 MG 1 cap(s) orally once a day for 90 days Active Lisinopril 20 MG 1 tab(s) orally once a day Please hold until patient requests refill Active amLODIPine Besylate 10 MG 1 tablet orally once a day Active Hiprex 1 GM 1 tablet Orally Twice a day for 10 day(s) Active Vital Signs Blood pressure systolic 144 mm Hg 03/03/20 24 Blood pressure diastolic 82 mm Hg 024 Heart Rate 77 /min 03/03/2024 Height 60 in 03/03/2024 Weight 150.6 lbs 03/03/2024 BMI 29.41 kg/m2 03/03/2024 Encounters Encounter Location Date Provider Diagnosis [facility] [address] [facility] [address] [facility] [address] [place] [id number] 03/03/2024 Rene Noble Essential hypertensi on I10 ; IFG (impaired fasting glucose) R73.01 and Renal insufficiency N28.9 Assessments Encounter Date Diagnosis (ICD Code) Assessment Notes Treatment Notes Treatment Clinical Notes Section Notes 03/03/2024 Essential hypertension (ICD-10 - I10) 03/03/2024 IFG (impaired fasting glucose) (ICD-10 - R73.01) 03/03/2024 Renal insufficiency (ICD-10 - N28.9) Plan Of Treatment Medication Medication Name Sig Start Date Stop Date Notes Lisinopril 20 MG 1 tab(s) orally once a day Please hold until patient requests refill amLODIPine Besylate 10 MG 1 tablet orally once a day Next Appt Details Follow Up: as scheduled,and prn, Reason: Provider Name:Rene De La Torre , 11/26/2024 09:15:00 AM, [address] [facility] [address] [facility], [address], [place], [id number], Progress Notes * Trish MAGANADOB: [birth year] (84 yo F)Acc No.[id number]:03/03/2024 Progress Notes Patient: Trish ART Provider: Carmita Noble M.D. :1940 A ge:83 Y S ex:Female Date:03/03/2024 Address:[facility] [address] [id number] Subjective: * Chief Complaints: * 1 . Discuss Medications. * HPI: C ardiology: 83 year old female presents with c/o Blood Pressure Elevated?Pt here to f/u on hypertension, pt states she is fasting today for blood work. Pt states she does not have any concerns and is doing well . * ROS: D ERMATOLOGY: no R jose. n o H renee. G ASTROENTEROLOGY: no N ausea. n o V omiting. U ROLOGY: no D ifficulty urinating. n o B lood in urine. * Medical History: H ypertension, Osteoarthritis Low Back/ Knees, Peptic Ulcer, 2015, Knee Pain, [facility], Lumbar Disc Disease, Lumbar facet arthropathy, Lumbar Spinal Stenosis, Chronic cystitis, Breast cancer, Dx: 2023, s/p bilateral mastectomy. * Surgical History: T ubal ligation 1969's, Spinal Synovial Cyst Removal 2004, Breast Biopsies , Breast Cyst Removal , RT Lower Back Rhizotomy 2006, Colonoscopy, Normal 2007, LT Foot Bone Spurs Removed 06/04/2014, EGD 2014, Colonoscopy 2020. * Hospitalization/Major Diagno stic Procedure: D ehydration- [facility] 08/2018. * Family History: F ather: , kidney failure. M other: , [place]. 2 brother(s) , 2 sister(s) . 2 son(s) - healthy. . * Social History: C URRENT TOBACCO USE S moking Status: Patient does NOT smoke. C affeine: yes, frequency: occasionally. Exercise: no. Marital Status: . Past smoking status: no, Smoking status: Does not smoke. * Medications: T aking Hiprex 1 GM Tablet 1 tablet Orally Twice a day , Taking Multiple Vitamin - Capsule 1 cap(s) orally once a day , Taking Celecoxib 200 MG Capsule 1 cap(s) orally once a day , Taking Lisinopril 20 MG Tablet 1 tab(s) orally once a day , Notes to Pharmacist: Please hold until patient requests refill, Taking amLODIPine Besylate 10 MG Tablet 1 tablet orally once a day , Medication List reviewed and reconciled with the patient * Allergies: O RAL NSAID'S: GI upset. Objective: * Vitals: W t:150.6, Temp:97.8, BP:144/82, HR:77, Nurse:shirin, Ht: 60, BMI:29.41. * Examination: C ardiology: General Appearance: p leasant, NAD. Heart sounds: R RR, normal S1, S2. Lungs: c lear, no rales or wheezes. Extremities: no leg edema. Peripheral pulses: 2 plus bilateral. ? Assessment: * Assessment: 1. E ssential hypertension - I10 (Primary) 2 . I FG (impaired fasting glucose) - R73.01 3 . R enal insufficiency - N28.9 Plan: * Treatment: Value Reference Range B UN 21 8-23 - mg/dL * C alcium 9.6 8.6-10.4 - mg/dL * C hloride 106 97-108 - mmol/L * C O2 26 22-32 - mmol/L * C reatinine 0.91 0.50-1.00 - mg/dL * G lucose 90 65-99 - mg/dL * P otassium 4.3 3.5-5.3 - mmol/L * S odium 143 135-145 - mmol/L * e GFR by Creatinine 62 >59 - mL/min/1.73m2 * DerrekAnnetta 03/04/2024 10:0 0:16 AM > Pt informed 2.?IFG (impaired fasting glucose)?LAB: Glucose (In-House) (Collection Date & Time - 03/03/2024)?119 Normal* Value Reference Range b lood glucose 119 74 - 106 mg/dL * DerrekAnnetta 03/03/2024 10:2 5:52 AM >Pt informed ?LAB: Glycohemoglobin A1c (in house) (Collection Date & Time - 03/03/2024)? 5.4% Normal* Value Reference Range g lycohemoglobin 5.4% 5 - 6.5 % * [place] 03/03/2024 10:2 9:21 AM >Pt informed 3.?Renal insufficiency?LAB: P-Basic Metabolic Panel (BMP) (Collection Date & Time - 03/03/2024 09:13 AM)?Normal* Value Reference Range B UN 21 8-23 - mg/dL * C alcium 9.6 8.6-10.4 - mg/dL * C hloride 106 97-108 - mmol/L * C O2 26 22-32 - mmol/L * C reatinine 0.91 0.50-1.00 - mg/dL * G lucose 90 65-99 - mg/dL * P otassium 4.3 3.5-5.3 - mmol/L * S odium 143 135-145 - mmol/L * e GFR by Creatinine 62 >59 - mL/min/1.73m2 * DerrekAnnetta 03/04/2024 10:0 0:16 AM > Pt informed ?LAB: P-CBC With Platelet No Differential (Collection Date & Time - 03/03/2024 09:13 AM)?Normal* Value Reference Range H ematocrit (HCT) 41.7 35.2-46.4 - % * H emoglobin (Hgb) 13.8 11.5-15.5 - gm/dL * M CH 29.1 26.9-35.0 - pg * M CHC 33.1 30.4-34.8 - g/dL * M CV 87.8 79.0-99.0 - fL * P latelet Count 201 137-397 - K/cumm * R ed Blood Cell Count (RBC) 4.75 3.60-5.30 - M/ mm3 * R DW 42.1 38.6-53.8 - fL * W BC 5.2 3.8-11.5 - K/uL * Annetta Anglin 03/04/2024 9:59 :50 AM > Pt informed ?LAB: P-Phosphorus (Collection Date & Time - 03/03/2024 09:13 AM)?Normal* Value Reference Range P hosphorus 3.7 2.5-4.5 - mg/dL * Annetta Anglin 03/04/2024 10:0 0:04 AM > Pt informed * Procedure Codes: G 2211 Complex e/[place], [address] GLYCATED HEMOGLOBIN TEST, Modifiers: QW , 3044F HG A1C LEVEL LT 7.0%, 3077F SYST BP = 140 MM HG6 IT, 3079F DIAST BP 80-89 MM HG * Follow Up: a s scheduled,and prn * Billing Information: * Visit Code: 50832 Office Visit, Est Pt., Level 4. * Procedure Codes: G2211 Complex e/[place]. [address] GLYCATED HEMOGLOBIN TEST. Modifiers: QW 3044F HG A1C LEVEL LT 7.0%. 3077F SYST BP = 140 MM HG6 IT. 3079F DIAST BP 80-89 MM HG. * Electronic signature of Maribel Noble MD on 08/13/2024 at 01:39 PM EDT Sign off status: Pending * Provider: Carmita Noble M.D. Date: 1 Generated for Devan ng/Neftalig/eTransmitting on: 0 08/13/2024 01:39 PM EDT History and Physical Notes * HPI (History of Present Illness) Category Sub-Category Detail Notes Category Not es Cardiology Blood Pressure Elevated Pt here to f/u on hypertension, pt states she is fasting today for blood work. Pt states she does not have any concerns and is doing well Examination Category Sub-Category Detail Notes Category Not es Cardiology Lungs: clear, no rales or wheezes Heart sounds: RRR, normal S1, S2 Extremities: no leg edema Peripheral pulses: 2 plus bilateral General Appearance: pleasant, NAD
--- OUTSIDE RECORDS SUMMARY | 2024-05-26 05:15 | XMS_ITS ---
Author Organization [facility] Address [address] [place] [id number] Care Team Providers Care Plating Operator Name Role Phone Rene Noble Primary Care Provider Allergies Allergen (clinical drug ingredient) Drug/Non Drug Allergy documented on EMR Reaction Allergy Type Onset Date Status Non-steroidal anti-inflammatory agent (FN) ORAL NSAID'S (uncoded) GI upset Allergy Activ e Results Component Value Reference Range Notes P-Comprehensive Metabolic Pa nidia (CMP) Reviewed date:05/27/2024 11:38:35 AM Interpretation:Normal Performing Lab: Notes/Report: Test performed by [facility], [address] , [address], [place] [address] Ezequiel Garnett MD, Photoengraving Etcher Apprentice CLIA: [id number] Sodium 142 135-145 mmol/L Potassium 4.5 3.5-5.3 mmol/L Chloride 108 97-108 mmol/L CO2 23 22-32 mmol/L Glucose 86 65-99 mg/dL BUN 16 8-23 mg/dL Creatinine 0.89 0.50-1.00 mg/dL Calcium 9.5 8.6-10.4 mg/dL eGFR by Creatinine 63 >59 mL/min/1.73m2 Protein 7.4 6.0-8.3 g/dL Albumin 4.6 3.5-5.3 g/dL Alkaline Phosphatase 87 35-121 IU/L ALT (SGPT) 13 <5-47 IU/L AST (SGOT) 19 <5-40 IU/L Bilirubin, Total 0.5 <0.2-1.2 mg/dL A/G Ratio 1.6 1.1-2.5 P-Lipid Panel Reviewed date:05/27/2024 11:38:35 AM Interpretation:trigs 185, chol/hdl 4.8, non-hdl 156 Performing Lab: Notes/Report: Test performed by [facility] [address] , [address], [place] [address] Ezequiel Garnett MD, Photoengraving Etcher Apprentice CLIA: [id number] Cholesterol 197 <200 mg/dL Triglycerides 185 <150 mg/dL HDL Cholesterol 41 >39 mg/dL Cholesterol / HDL Ratio 4.80 0.00-4.44 Ratio Non-HDL Cholesterol 156 <130 mg/dL LDL Cholesterol (Calculation) 119 <130 mg/dL LDL Cholesterol Levels* Less than 100 mg/dL Optimal 100 to 129 mg/dL Near Optimal/ Above Optimal 130 to 159 mg/dL Borderline High 160 to 189 mg/dL High 190 mg/dL and above Very High * Categories as recommended by the 2004 ATPIII guidelines LDL/HDL Ratio 2.9 <3.3 Ratio LDL Cholesterol Patient History Test Date: 05/26/2023 LDL Results: 112 Units: mg/dL % Change: - Test Date: 05/26/2024 LDL Results: 119 Units: mg/dL % Change: +6% P-TSH reflex to FT4 Reviewed date:05/27/2024 11:38:35 AM Interpretation:Normal Performing Lab: Notes/Report: Test performed by [facility] [address] [place] [address] , [address], [place] [address] Ezequiel Garnett MD, Photoengraving Etcher Apprentice CLIA: [id number] TSH reflex to FT4 4.28 0.43-5.25 mU/L P-Microalbumin/Creatinine, R andom Urine Sample Reviewed date:05/27/2024 11:38:35 AM Interpretation:Normal Performing Lab: Notes/Report: Test performed by [facility] [address] [place] [address] , [address], [place] [address] Ezequiel Garnett MD, Photoeng[employer]ving Etcher Apprentice CLIA: [id number] Albumin/Creatinine Ratio, Urine 9 0-30 ug/m g Microalbumin, Urine, Random 0.5 Creatinine, Urine 53.7 REASON FOR VISIT 3 month ckup Medications Medication SIG (Take, Route, Frequency, Duration) Notes Start Date End Date Status Hiprex 1 GM 1 tablet Orally Twice a day for 10 day(s) Active Celecoxib 200 MG 1 cap(s) orally once a day for 90 days Active Multiple Vitamin - 1 cap(s) orally once a day Active amLODIPine Besylate 10 MG 1 tablet orally once a day for 90 days Active Lisinopril 20 MG 1 tab(s) orally once a day for 90 days Please hold until patient requests refill Active Vital Signs Blood pressure systolic 136 mm Hg 05/27/19 25 Blood pressure diastolic 80 mm Hg 025 Heart Rate 61 /min 05/26/2024 Height 60 in 05/26/2024 Weight 144.8 lbs 05/26/2024 BMI 28.28 kg/m2 05/26/2024 Encounters Encounter Location Date Provider Diagnosis [facility] [address] [facility] [address] [place] [id number] 05/26/2024 Rene Noble Essential hypertensi on I10 ; Renal insufficiency N28.9 ; Pure hypercholesterolemia E78.00 and Polyarthralgia M25.50 Assessments Encounter Date Diagnosis (ICD Code) Assessment Notes Treatment Notes Treatment Clinical Notes Section Notes 05/26/2024 Essential hypertensi on (ICD-10 - I10) 05/26/2024 Renal insufficiency (ICD-10 - N28.9) 05/26/2024 Pure hypercholesterolemia (ICD-10 - E78.00) 05/26/2024 Polyarthralgia (ICD- 10 - M25.50) Plan Of Treatment Medication Medication Name Sig Start Date Stop Date Notes Celecoxib 200 MG 1 cap(s) orally once a day for 90 days amLODIPine Besylate 10 MG 1 tablet orally once a day for 90 days Lisinopril 20 MG 1 tab(s) orally once a day for 90 days Please hold until patient requests refill Next Appt Details Follow Up: 6 Months, Reason: Provider Name:Rene De La Torre , 11/26/2024 09:15:00 AM, [address] [facility] [address] [facility], [address] , [place], [place], [id number], Progress Notes * Neel MAGANAirvingDOB: 9 (84 yo F)Acc No.[id number]:05/26/2024 Progress Notes Patient: Trish ART Provider: Carmita Noble M.D. :1940 A ge:84 Y S ex:Female Date:05/26/2024 Address:[address] [place] [address] [place], [id number] Subjective: * Chief Complaints: * 1 . 3 month ckup. * HPI: C ardiology: 84 year old female presents with c/o Blood Pressure Elevated?Pt here to f/u on hypertension. Pt states she is doing well and does not have any concerns. * ROS: D ERMATOLOGY: no R jose. n o H renee. G ASTROENTEROLOGY: no N ausea. n o V omiting. U ROLOGY: no D ifficulty urinating. n o B lood in urine. * Medical History: H ypertension, Osteoarthritis Low Back/ Knees, Peptic Ulcer, 2015, Knee Pain, [facility], Lumbar Disc Disease, Lumbar facet arthropathy, Lumbar Spinal Stenosis, Chronic cystitis, Breast cancer, Dx: 2023, s/p bilateral mastectomy. * Surgical History: T ubal ligation 1969's, Spinal Synovial Cyst Removal 2004, Breast Biopsies , Breast Cyst Removal , RT Lower Back Rhizotomy 2006, Colonoscopy, Normal 2007, LT Foot Bone Spurs Removed 06/04/2014, EGD 2014, Colonoscopy 2020. * Hospitalization/Major Diagno stic Procedure: D ehydration- [facility] 08/2018. * Family History: F ather: [...] NSAID'S: GI upset. Objective: * Vitals: W t: 144.8, Temp: 97.8, BP: 136/80, HR: 61, Nurse: shirin, Ht: 60, BMI:28.28. * Examination: C ardiology: General Appearance: p leasant, NAD. Heart sounds: R RR, normal S1, S2. Lungs: c lear, no rales or wheezes. Extremities: no leg edema. Peripheral pulses: 2 plus bilateral. ? Assessment: * Assessment: 1. E ssential hypertension - I10 (Primary) 2 . R enal insufficiency - N28.9? 3. P ure hypercholesterolemia - E78.00 4 . P olyarthralgia - M25.50 Plan: * Treatment: Value Reference Range A /G Ratio 1.6 1.1-2.5 - * A lbumin 4.6 3.5-5.3 - g/dL * A lkaline Phosphatase 87 35-121 - IU/L * A LT (SGPT) 13 <5-47 - IU/L * A ST (SGOT) 19 <5-40 - IU/L * B ilirubin, Total 0.5 <0.2-1.2 - mg/dL * B UN 16 8-23 - mg/dL * C alcium 9.5 8.6-10.4 - mg/dL * C hloride 108 97-108 - mmol/L * C O2 23 22-32 - mmol/L * C reatinine 0.89 0.50-1.00 - mg/dL * G lucose 86 65-99 - mg/dL * P otassium 4.5 3.5-5.3 - mmol/L * S odium 142 135-145 - mmol/L * P rotein 7.4 6.0-8.3 - g/dL * e GFR by Creatinine 63 >59 - mL/min/1.73m2 * Kerline Guillen 05/27/2024 11:3 8:27 AM > See phone encounter ?LAB: P-Microalbumin/Creatinine, Random Urine Sample (Collection Date & Time - 05/26/2024 08:45 AM)?Normal* Value Reference Range A lbumin/Creatinine Ratio, Urine 9 0-30 - ug /mg * C reatinine, Urine 53.7 - mg/dL * M icroalbumin, Urine, Random 0.5 - mg/dL * Kerline Guillen 05/27/2024 11:3 8:27 AM > See phone encounter 2.?Renal insufficiency?LAB: P-Comprehensive Metabolic Panel (CMP) (Collection Date & Time - 05/26/2024 08:45 AM)?Normal* Value Reference Range A /G Ratio 1.6 1.1-2.5 - * A lbumin 4.6 3.5-5.3 - g/dL * A lkaline Phosphatase 87 35-121 - IU/L * A LT (SGPT) 13 <5-47 - IU/L * A ST (SGOT) 19 <5-40 - IU/L * B ilirubin, Total 0.5 <0.2-1.2 - mg/dL * B UN 16 8-23 - mg/dL * C alcium 9.5 8.6-10.4 - mg/dL * C hloride 108 97-108 - mmol/L * C O2 23 22-32 - mmol/L * C reatinine 0.89 0.50-1.00 - mg/dL * G lucose 86 65-99 - mg/dL * P otassium 4.5 3.5-5.3 - mmol/L * S odium 142 135-145 - mmol/L * P rotein 7.4 6.0-8.3 - g/dL * e GFR by Creatinine 63 >59 - mL/min/1.73m2 * Kerline Guillen 05/27/2024 11:3 8:27 AM > See phone encounter 3.?Pure hypercholesterolemia?LAB: P-Comprehensive Metabolic Panel (CMP) (Collection Date & Time - 05/26/2024 08:45 AM)?Normal* Value Reference Range A /G Ratio 1.6 1.1-2.5 - * A lbumin 4.6 3.5-5.3 - g/dL * A lkaline Phosphatase 87 35-121 - IU/L * A LT (SGPT) 13 <5-47 - IU/L * A ST (SGOT) 19 <5-40 - IU/L * B ilirubin, Total 0.5 <0.2-1.2 - mg/dL * B UN 16 8-23 - mg/dL * C alcium 9.5 8.6-10.4 - mg/dL * C hloride 108 97-108 - mmol/L * C O2 23 22-32 - mmol/L * C reatinine 0.89 0.50-1.00 - mg/dL * G lucose 86 65-99 - mg/dL * P otassium 4.5 3.5-5.3 - mmol/L * S odium 142 135-145 - mmol/L * P rotein 7.4 6.0-8.3 - g/dL * e GFR by Creatinine 63 >59 - mL/min/1.73m2 * Kerline Guillen 05/27/2024 11:3 8:27 AM > See phone encounter ?LAB: P-Lipid Panel (Collection Date & Time - 05/26/2024 08:45 AM)?trigs 185, chol/hdl 4.8, non-hdl 156* Value Reference Range C holesterol / HDL Ratio 4.80 H 0.00-4.44 - Ratio * C holesterol 197 <200 - mg/dL * H DL Cholesterol 41 >39 - mg/dL * L DL Cholesterol (Calculation) 119 <130 - mg/d L * L DL/HDL Ratio 2.9 <3.3 - Ratio * N on-HDL Cholesterol 156 H <130 - mg/dL * T riglycerides 185 H <150 - mg/dL * Kerline Guillen 05/27/2024 11:3 8:27 AM > See phone encounter ?LAB: P-TSH reflex to FT4 (Collection Date & Time - 05/26/2024 08:45 AM)? Normal* Value Reference Range T SH reflex to FT4 4.28 0.43-5.25 - mU/L * Kerline Guillen 05/27/2024 11:3 8:27 AM > See phone encounter 4.?Polyarthralgia? Refill Celecoxib Capsule, 200 MG, 1 cap(s), orally, once a day, 90 days, 90, Refills 1.?? * Procedure Codes: G 2211 Complex e/m visit add on, 3075F SYST BP GE 130 - 139MM HG, 3079F DIAST BP 80-89 MM HG * Follow Up: 6 Months * Billing Information: * Visit Code: 07507 Office Visit, Est Pt., Level 4. * Procedure Codes: G2211 Complex e/m visit add on. 3075F SYST BP GE 130 - 139MM HG. 3079F DIAST BP 80-89 MM HG. * Electronic signature of Maribel Noble MD on 08/13/2024 at 01:39 PM EDT Sign off status: Pending * Provider: Carmita Noble M.D. Date: 05/26/2024 Generated for Devan nguyễn/Neftalig/eTransmitting on: 08/13/2024 01:39 PM EDT History and Physical Notes * HPI (History of Present Illness) Category Sub-Category Detail Notes Category Not es Cardiology Blood Pressure Elevated Pt here to f/u on hypertension. Pt states she is doing well and does not have any concerns Examination Category Sub-Category Detail Notes Category Not es Cardiology Lungs: clear, no rales or wheezes Heart sounds: RRR, normal S1, S2 Extremities: no leg edema Peripheral pulses: 2 plus bilateral General Appearance: pleasant, NAD
--- OUTSIDE RECORDS SUMMARY | 2024-05-27 05:15 | XMS_ITS ---
Author Organization [facility] Address [address] [facility] [address] [place] [phone] Care Team Providers Care Preventative Maintenance Technician Name Role Phone Rene Noble Primary Care Provider REASON FOR VISIT 6 mths with fasting labs Encounters Encounter Location Date Provider Diagnosis [facility] [address] [facility] [address] [place] [phone] 05/27/2024 Rene Noble Plan Of Treatment Next Appt Details Provider Name:Rene De La Torre ry, 11/26/2024 09:15:00 AM, [address], [address], [place], [phone], Progress Notes * Trish MAGANADOB: (84 yo F)Acc No.[id number]:05/27/2024 Progress Notes Patient: Trish ART Provider: Carmita Noble M.D. :1940 A ge:84 Y S ex:Female Date:05/27/2024 Address:[id number] Subjective: * Chief Complaints: * 1 . 6 mths with fasting labs. * Medical History: Objective: * Vitals: Assessment: Plan: * Treatment: * Billing Information: * Visit Code: * Procedure Codes: * Electronic signature of Maribel Noble MD on 08/13/2024 at 01:39 PM EDT Sign off status: Pending * Provider: Carmita Noble M.D. Date: 0 05/27/2024 Generated for Devan nguyễn/Dorys/Fatmata on: 0 08/13/2024 01:39 PM EDT
--- OUTSIDE RECORDS SUMMARY | 2024-08-13 13:39 | XMS_ITS | Patient Health Record ---
[facility] Address [address] [place] [id number] Care Team Providers Care Loop Drier Operator Name Role Phone Rene Noble Primary Care Provider Allergies Allergen (clinical drug ingredient) Drug/Non Drug Allergy documented on EMR Reaction Allergy Type Onset Date Status Non-steroidal anti-inflammatory agent (FN) ORAL NSAID'S (uncoded) GI upset Allergy Activ e Results Component Value Reference Range Notes P-Microalbumin/Creatinine, R andom Urine Sample Reviewed date:05/27/2024 11:38:35 AM Interpretation:Normal Performing Lab: Notes/Report: CLIA: [id number] Ezequiel Garnett MD, Linoleum Floor Installer [address] [place] [address] , [place] [address] Test performed by [facility] Albumin/Creatinine Ratio, Urine 9 0-30 ug/m g Microalbumin, Urine, Random 0.5 Creatinine, Urine 53.7 P-TSH reflex to FT4 Reviewed date:05/27/2024 11:38:35 AM Interpretation:Normal Performing Lab: Notes/Report: Test performed by [facility] [address] [place] [address] , [address], [place] [address] Ezequiel Garnett MD, Linoleum Floor Installer CLIA: [id number] TSH reflex to FT4 4.28 0.43-5.25 mU/L P-Lipid Panel Reviewed date:05/27/2024 11:38:35 AM Interpretation:trigs 185, chol/hdl 4.8, non-hdl 156 Performing Lab: Notes/Report: Test performed by [facility] [address] [facility] [address], [place] [address] Ezequiel Garnett MD, Linoleum Floor Installer SIMON: [id number] Cholesterol 197 <200 mg/dL Triglycerides 185 <150 [...] Results: 119 Units: mg/dL % Change: +6% P-Comprehensive Metabolic Pa nidia (CMP) Reviewed date:05/27/2024 11:38:35 AM Interpretation:Normal Performing Lab: Notes/Report: Test performed by [facility] [address] [place] [address] , [address], [place] [address] Ezequiel Garnett MD, Linoleum Floor Installer CLIA: [id number] Sodium 142 135-145 mmol/L Potassium 4.5 3.5-5.3 [...] 0.5 <0.2-1.2 mg/dL A/G Ratio 1.6 1.1-2.5 Glucose (In-House) Reviewed date:03/04/2024 10:00:37 AM Interpretation:119 Normal Performing Lab: Notes/Report: 119 Normal blood glucose 119 74 - 106 mg/dL Glycohemoglobin A1c (in hous e) Reviewed date:03/04/2024 10:00:48 AM Interpretation:5.4% Normal Performing Lab: Notes/Report: 5.4% Normal glycohemoglobin 5.4% 5 - 6.5 % P-Basic Metabolic Panel (BMP ) Reviewed date:03/04/2024 10:00:23 AM Interpretation: Normal Performing Lab: Notes/Report: CLIA: [id number] Ezequiel Garnett MD, Linoleum Floor Installer [address] [place] [address] , [address], [place] [address] Test performed by [facility] Sodium 143 135-145 mmol/L Potassium 4.3 3.5-5.3 mmol/L Chloride 106 97-108 mmol/L CO2 26 22-32 mmol/L Glucose 90 65-99 mg/dL BUN 21 8-23 mg/dL Creatinine 0.91 0.50-1.00 mg/dL Calcium 9.6 8.6-10.4 mg/dL eGFR by Creatinine 62 >59 mL/min/1.73m2 P-CBC With Platelet No Diffe rential Reviewed date:03/04/2024 09:59:56 AM Interpretation: Normal Performing Lab: Notes/Report: Test performed by [facility] [address] [place] [address] , [address], [place] [address] Ezequiel Garnett MD, Linoleum Floor Installer CLIA: [id number] WBC 5.2 3.8-11.5 K/uL Red Blood Cell Count (RBC) 4.75 3.60-5.30 M/mm 3 Hemoglobin (Hgb) 13.8 11.5-15.5 gm/dL Hematocrit (HCT) 41.7 35.2-46.4 % MCV 87.8 79.0-99.0 fL MCH 29.1 26.9-35.0 pg MCHC 33.1 30.4-34.8 g/dL RDW 42.1 38.6-53.8 fL Platelet Count 201 137-397 K/cumm P-Phosphorus Reviewed date:03/04/2024 10:00:10 AM Interpretation: Normal Performing Lab: Notes/Report: Test performed by [facility] [address] [place] [address] , [address], [place] [address] Ezequiel Garnett MD, Linoleum Floor Installer CLIA: [id number] Phosphorus 3.7 2.5-4.5 mg/dL Reason For Referral No Information Medications Medication SIG (Take, Route, Frequency, Duration) [...] Please hold until patient requests refill Active Immunizations Vaccine Route Administration Date Status Comme nts COVID 19 Moderna Unknown 03/13/2020 Administered COVID 19 Moderna Unknown 04/13/2020 Administered COVID 19 Moderna Unknown 12/22/2020 Administered COVID 19 Moderna Unknown 09/15/2021 Administered Fluzone High Dose (65yr and older) IM Intramuscular 01/07/2013 Administered Fluzone High Dose (65yr and older) IM Intramuscular 11/17/2014 Administered Fluzone High Dose (65yr and older) IM Intramuscular 01/17/2016 Administered Fluzone High Dose (65yr and older) IM Intramuscular 01/05/2017 Administered Fluzone High Dose (65yr and older) IM Intramuscular 12/28/2017 Administered Fluzone High Dose (65yr and older) IM Intramuscular 12/05/2018 Administered Fluzone High Dose (65yr and older) IM Intramuscular 12/04/2019 Administered Fluzone High Dose (65yr and older) IM Intramuscular 01/25/2021 Administered Fluzone High Dose (65yr and older) IM Intramuscular 11/11/2021 Administered Fluzone High Dose (65yr and older) IM Intramuscular 01/01/2023 Administered Fluzone High Dose (65yr and older) IM Intramuscular 01/08/2024 Administered PNEUMOVAX 23 VACCINE IM Intramuscular 03/01/2021 Administe red Prevnar (PCV13) IM Intramuscular 07/05/2016 Administered Prevnar (PCV20) IM Intramuscular 05/29/2022 Administered Tetanus Tdap-Adacel (over 7yrs) IM Intramuscular 07/05/2016 Administered xAdministration of injection IM Intramuscular 09/04/2011 Administered xFlu shot-36 months and older IM Intramuscular 12/31/2009 Administered xFlu shot-36 months and older IM Intramuscular 01/23/2011 Administered xFluzone (6mos and older)-trivalent IM Intramuscular 01/18/2012 Administered Problems Problem Type SNOMED Code ICD Code Onset Dates Problem Status W/U Status Risk Notes Problem Essential hypertension (70491408) Essential (primary) hypertension (I10) Active confirmed Problem 91653796 Essential hypert ension (I10) Active confirmed Problem 705088115 History of pepti c ulcer (Z87.11) Active confirmed Problem 01437953 Polyarthralgia (M25.50) Active confirmed Problem 8448675 Arthritis (M19.90) Active confirmed Problem 079234319 Lumbar facet arthropathy (M47.816) Active confirmed Problem 431849070 Lumbar disc dise ase (M51.9) Active confirmed Problem 69626257 Other chronic pa in (G89.29) Active confirmed Problem 42663837 Lumbar degenerat caprice disc disease (M51.36) Active confirmed Problem 837567855 Gastroesophageal reflux disease without esophagitis (K21.9) Active confirmed Problem 834574763 Gastroesophageal reflux disease, esophagitis presence not specified (K21.9) Active confirmed Problem 48928350 Left sided sciat ica (M54.32) Active confirmed Problem 00607622 Peptic ulcer dis ease (K27.9) Active confirmed Problem 137291451 Pure hypercholesterolemia (E78.00) Active confirmed Problem 13356555 Osteoarthrosis o f ankle and foot, 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) Active confirmed Problem 588443018 Body mass index (BMI) of 31.0-31.9 in adult (Z68.31) Active confirmed Problem 7485178270220201 Arthritis of ri ght knee (M17.11) Active confirmed Problem 1049278991213994 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) Active confirmed Vital Signs Heart Rate 61 /min 05/26/2024 Blood pressure diastolic 80 mm Hg 05/26/2024 Height 60 in 05/26/2024 Blood pressure systolic 136 mm Hg 05/26/2024 Weight 144.8 lbs 05/26/2024 BMI 28.28 kg/m2 05/26/2024 Encounters Encounter Location Date Provider Diagnosis [facility] [address] [place], [place] [id number] 08/30/2023 Rene Natchez Dizziness R42 and Es sential hypertension I10 [facility] [address] [place], [place] [id number] 09/24/2023 Rene Natchez Dizziness R42 and Es sential (primary) hypertension I10 [facility] [address] [place], [place] [id number] 11/27/2023 Rene Natchez Essential hypertensi on I10 and Polyarthralgia M25.50 [facility] [address] [place], [place] [id number] 01/08/2024 Rene Natchez Encounter for immuni zation Z23 [facility] [address] [place], [place] [id number] 03/03/2024 Rene Natchez Essential hypertensi on I10 ; IFG (impaired fasting glucose) R73.01 and Renal insufficiency N28.9 [facility] [address] [facility] [address] [place] [id number] 05/26/2024 Rene Natchez Essential hypertensi on I10 ; Renal insufficiency N28.9 ; Pure hypercholesterolemia E78.00 and Polyarthralgia M25.50 [facility] [address] [facility] [address] [place], [place] [id number] 02/22/2024 Rene [place] [facility] [address] [place], [place] [id number] 05/27/2024 Rene Noble Assessments Encounter Date Diagnosis (ICD Code) Assessment Notes Treatment Notes Treatment Clinical Notes Section Notes 08/30/2023 Dizziness (ICD-10 - R42) 08/30/2023 Essential hypertensi on (ICD-10 - I10) 09/24/2023 Essential (primary) hypertension (ICD-10 - I10) 09/24/2023 Dizziness (ICD-10 - R42) 11/27/2023 Essential hypertensi on (ICD-10 - I10) 11/27/2023 Polyarthralgia (ICD- 10 - M25.50) 01/08/2024 Encounter for immunization (ICD-10 - Z23) 03/03/2024 Essential hypertensi on (ICD-10 - I10) 03/03/2024 IFG (impaired fastin g glucose) (ICD-10 - R73.01) 05/26/2024 Essential hypertensi on (ICD-10 - I10) 05/26/2024 Renal insufficiency (ICD-10 - N28.9) 05/26/2024 Pure hypercholesterolemia (ICD-10 - E78.00) 03/03/2024 Renal insufficiency (ICD-10 - N28.9) 05/26/2024 Polyarthralgia (ICD- 10 - M25.50) Plan Of Treatment Pending Test Test Name Order Date X ray : Knee, left 08/10/2023 Next Appt Details Provider Name:Rene De La Torre ry, 11/26/2024 09:15:00 AM, [address], [place], [id number], Insurance Providers Payer Name Payer Address Payer Phone Subscriber Number Group Number Insured Name Patient Relationship to Insured Coverage Start Date Coverage End Date [employer] (MEDICAR E) [address] [address] [place] [id number] Trish Ramirez Self - patient is the insured Medications Administered Medication Instructions Date of Administration Dosage Notes Depo- Medrol 40 mg/ml 09/07/2009 1.5 mL Depo- Medrol 40 mg/ml 09/09/2009 1.5 mL Medical (General) History Medical History History ICD Code Hypertension Osteoarthritis Low Back/ Knees Peptic Ulcer, 2014 Knee Pain, [facility] Lumbar Disc Disease Lumbar facet arthropathy Lumbar Spinal Stenosis Chronic cystitis Breast cancer, Dx: 2023, s/p bilateral m astectomy Surgical History Surgery Date(Month/Year) Tubal ligation 1969's Spinal Synovial Cyst Removal 2004 Breast Biopsies Breast Cyst Removal RT Lower Back Rhizotomy 2007 Colonoscopy, Normal 2007 LT Foot Bone Spurs Removed 06/04/2014 EGD 2014 Colonoscopy 2020 Hospitalization History Reason Date(Month/Year) [facility] 08/2018
--- OUTSIDE RECORDS SUMMARY | 2024-08-13 13:39 | XMS_ITS | Clinical Summary ---
Author Organization [facility] Address [address] [place] [address] Care Team Providers Care Probate Paralegal Name Role Phone Rene Noble MD Primary Care Provider [phone] Social History Tobacco Use Types Packs/Day Years Used Date Smoking Tobacco: Never Assessed Comments Unknown Sex and Gender Information Value Date Recorded Sex Assigned at Not on file Legal Sex Female 7:42 PM EDT Gender Identity Not on file Sexual Orientation Not on file Plan of Treatment Upcoming Encounters Date Type Department Care Team (Late st Contact Info) Description 04/15/2025 12:30 PM EST Ovarian Cancer Screening [facility] Gynecology [address] [place] [address] Health Maintenance Due Date Last Done Comments [facility]-Bone Density Scan 1938 [facility]-Depression Screening 1938 [facility]-Medicare Annual Wellness (AWV) 1938 [facility]-Infant/Child/Adol SDOH Screenings 1938 [facility]- SDOH Screenings 1956 [facility]-Adult SDOH Screenings 1956 [facility]-Zoster Vaccines (1 of 2) 1988 [facility]-RSV Vaccine: 60+ Years or (1 - 1-dose 75+ series) 2013 NCB-TOIED-08 Vaccine (2023- season) 2023 03/29/2022, 09/15/2021, 12/22/2020, Additional history exists [facility]-Influenza Vaccine (Season Ended) 2024 11/11/2021, 01/25/2021, 12/04/2019, Additional history exists [facility]-DTaP,Tdap,and Td Vaccines (2 - Td or Tdap) 07/05/2026 07/05/2016 [facility]-Pneumococcal Vaccine: 50+ Years Completed 05/29/2022, 03/01/2021, 07/05/2016 HPV Vaccines Aged Out No longer eligi ble based on patient's age to complete this topic [facility]-HIB Vaccines Aged Out No longer e ligible based on patient's age to complete this topic [facility]-Hepatitis A Vaccines Aged Out No longer eligible based on patient's age to complete this topic [facility]-IPV Vaccines Aged Out No longer e ligible based on patient's age to complete this topic [facility]-Rotavirus Vaccines Aged Out No lo nger eligible based on patient's age to complete this topic Insurance [employer] MEDICARE Care Teams Probate Paralegal Relationship Specialty Start Date End Date Rene Noble MD [address] [facility] [address] [place] [address] PCP - General 03/28/22
--- OUTSIDE RECORDS SUMMARY | 2024-08-13 13:40 | XMS_ITS | Data Portability ---
Author Organization [facility] [place] [facility] SHAREE So ADMIN Address [address] [place] [address] Assessment No assessment recorded. Plan of Treatment Reminders Order Date Submit Date Provider Last Modified By Organization Details Last Modified Time Details Appointments OV EST 15 2024 02:30P M Chrissie Santos NP Not available Not available Not available Lab urinalysi s, dipstick 2023 024 [email or web address] [facility], [address] [place] [address], [address], [place], [address], 08/08/2023 14:04:13 urinalysi s, dipstick [address] [facility], [address] [place] [address], [address], [place], [address], 06/11/2023 15:46:48 Referral None recorded. Procedures None recorded. Surgeries None recorded. Imaging US, renal 2023 024 [email or web address] [facility] (Centralized Scheduling), [address] [place], [address], 03/16/2024 13:12:12 US, renal 2023 024 [email or web address] [facility] (Centralized Scheduling), [address] [place], [address], 08/01/2023 11:17:40 XR, kidney + ureter + bladder 2023 024 [email or web address] [facility] (Centralized Scheduling), [address] [place], [address], 06/11/2023 15:05:26 Medication Orders methenami ne hippurate 1 gram tablet 2023 024 [facility], [address], [address], 12/10/2023 14:05:47 methenami ne hippurate 1 gram tablet 2023 024 [facility], [address], [address], 08/08/2023 14:05:23 methenami ne hippurate 1 gram tablet 2023 024 [facility], [address], [address], 06/11/2023 15:04:56 Patient TargetsNo targets recorded. Patient InstructionsNo instructions recorded. Reason for Referral None Reported. Results Created Date Observation Date Name Description Value Unit Range Abnormal Flag Note LastModifiedBy Organization Detail LastModifiedTime 06/11/1906/11/2023 urina lysis , dipst ick Leukocytes (reference range) negati ve Not Available [facility] [address] [place] [address], [address], 06/11/2023 14:52:23 06/11/19 24 06/11/2023 urina lysis , dipst ick Nitrite (reference range:) negati ve Not Available [facility] [address] [place] [address], [address], 06/11/2023 14:52:23 06/11/19 24 06/11/2023 urina lysis , dipst ick Urobilinogen (reference range) 0.2 Not Available [facility], [address], 06/11/2023 14:52:23 06/11/19 24 06/11/2023 urina lysis , dipst ick Protein (reference range) negati ve Not Available [facility] [address] [place] [address] [address], [place], [address], 06/11/2023 14:52:23 06/11/19 24 06/11/2023 urina lysis , dipst ick pH (reference range 5-8.5) 6.0 Not Available [facility] [address] [place] [address] [address], [place], [address], 06/11/2023 14:52:23 06/11/19 24 06/11/2023 urina lysis , dipst ick Blood (reference range:) negati ve Not Available [address], [place], [address], 06/11/2023 14:52:23 06/11/19 24 06/11/2023 urina lysis , dipst ick Specific [place] (reference range) 1.015 Not Available [facility] [address], [place], [address], 06/11/2023 14:52:23 06/11/19 24 06/11/2023 urina lysis , dipst ick Ketone (reference range) negati ve Not Available [address] [facility], [place], [address], 06/11/2023 14:52:23 06/11/19 24 06/11/2023 urina lysis , dipst ick Bilirubin (reference range) negati ve Not Available [address] [address], [place], [address], 06/11/2023 14:52:23 06/11/19 24 06/11/2023 urina lysis , dipst ick Glucose (reference range) negati ve Not Available [address] [address], [place], [address], 06/11/2023 14:52:23 06/11/19 24 06/11/2023 urina lysis , dipst ick Color (reference range: yellow-brown ) Yellow Not Available [facility] [address] [place] [address] [address], [place], [address], 06/11/2023 14:52:23 08/08/19 24 08/08/2023 urina lysis , dipst ick Leukocytes (reference range) negati ve Not Available [facility] [address] [place] [address] [address], [place], [address], 08/08/2023 14:03:48 08/08/19 24 08/08/2023 urina lysis , dipst ick Nitrite (reference range:) negati ve Not Available [address] [address], [place], [address], 08/08/2023 14:03:48 08/08/19 24 08/08/2023 urina lysis , dipst ick Urobilinogen (reference range) 0.2 Not Available [address] [address], [place], [address], 08/08/2023 14:03:48 08/08/19 24 08/08/2023 urina lysis , dipst ick Protein (reference range) negati ve Not Available [address], [place], [address], 08/08/2023 14:03:48 08/08/19 24 08/08/2023 urina lysis , dipst ick pH (reference range 5-8.5) 6.0 Not Available [facility] [address] [place] [address] [address], [place], [address], 08/08/2023 14:03:48 08/08/19 24 08/08/2023 urina lysis , dipst ick Blood (reference range:) negati ve Not Available [facility] [address] [place] [address] [address], [place], [address], 08/08/2023 14:03:48 08/08/19 24 08/08/2023 urina lysis , dipst ick Specific [place] (reference range) 1.015 Not Available [facility] [address] [place] [address] [address], [place], [address], 08/08/2023 14:03:48 08/08/19 24 08/08/2023 urina lysis , dipst ick Ketone (reference range) negati ve Not Available [facility] [address] [place] [address] [address], [place], [address], 08/08/2023 14:03:48 08/08/19 24 08/08/2023 urina lysis , dipst ick Bilirubin (reference range) negati ve Not Available [facility] [address] [place] [address] [address], [place], [address], 08/08/2023 14:03:48 08/08/1908/08/2023 urina lysis , dipst ick Glucose (reference range) negati ve Not Available [address] [facility], [place], [address], 08/08/2023 14:03:48 08/08/1908/08/2023 urina lysis , dipst ick Color (reference range: yellow-brown ) Yellow Not Available [facility] [address] [place] [address] [address], [place], [address], 08/08/2023 14:03:48 08/06/19 24 08/06/2023 renal ,bila teral [facility] [address] [id number] Phone: Fax: Name: ALF MAGANA Exam Date: 08/06/19 : [birth year] Age 83 years Gender : F Access ion: [id number] Physic frances: RYAN SANTOS Facili ty: [facility] Facili ty HSV: Outpat ient Exam: RENAL, BILATE RAL US RENAL ULTRAS OUND HISTOR Y: Recurr ent UTIs. PROCED URE: Ultras ound images of the kidney s were obtain ed. FINDIN GS: Limite d images of the liver parenc hyma demons trate normal echoge nicity . The right kidney measur es 9.3 cm in length . There is mild increa sed renal cortic al echoge nicity . There is no hydron ephros is. There is a 2.6 cm right renal cyst. The left kidney measur es 9 cm in length . There is mild increa sed renal cortic al echoge nicity . There is no hydron ephros is. IMPRES SEBAS: 1. Mild renal atroph y with bilate ral increa sed renal cortic al echoge nicity which can be seen with medica l renal diseas e. No hydron ephros is. 2. Right renal cyst. Films review ed , interp reted and dictat ed by Dr.Pop ayaal Transc ribed by Devin Damon PA-C. Dictat ed By: ABELARDO SHELTON Transc ribed By: Abelardo Shelton Transc ribed On: 08/06/19 12:59 PM Electr onical ly signed by: ABELARDO SHELTON 08/06/19 Thank you for referr JACEY MarkhamDANIEL QUEVEDO to [facility]. Legall y authen ticate d by POPE ABELARDO Martinez 08-05 12:59: 57 CC'ed Logic: Orderi ng Provid er: TOM Hartmann Attend ing Provid er: TOM Hartmann Admitt ing Provid er: TOM Hartmann [email or web address] [facility] - Physical Therapy [address] [facility], [place], [address], 08/06/2023 13:17:58 02/08/20 24 02/08/2024 renal ,bila teral US [facility] Hospit [facility] [address] [place] [address] Phone: Fax: Name: ALF MAGANA Exam Date: : [birth year] Age 83 years Gender : F Access ion: [id number] Physic frances: RYAN SANTOS Facili ty: [facility] Facili ty HSV: Outpat ient Exam: RENAL, BILATE RAL US PROCED URE: US KIDNEY BILATE RAL, 9:28 AM [facility] INDICA TION:c yst. COMPAR MARIVEL: 08/06/19 24 FINDIN GS: Right kidney measur es 9.5 x 4.1 x 4.2 cm. Left kidney measur es 9.1 x 4.5 x 3.9 cm. No hydron ephros is. Right anecho ic cystic lesion measur ing 2.5 x 2.7 x 2.6 cm, no furthe r follow -up is necess huseyin. Left tiny anecho ic cystic lesion measur ing up to 7 mm, no furthe r follow -up is necess huseyin. IMPRES SEBAS: No hydron ephros is. Mildly increa sed bilate ral renal parenc hymal echoge nicity , nonspe cific, may be seen with medica l renal diseas e. Electr onical ly signed by:Adin myrick MD08/2023 11:20 AM EST RP Workst ation: [id number] Dictat ed By: Chidi Mackenzie Transc ribed By: Transc ribed On: 10:28 AM Electr onical ly signed by: Chidi Mackenzie Thank you for referr ALF Markham to [facility] it Hospit al. Legall y authen ticate d by NEREYDA BRISENO 2023-03 10:28: 19 CC'ed Logic: Orderi ng Provid er: TOM Hartmann Attend ing Provid er: TOM Hartmann Referr ing Provid er: TOM Hartmann Admitt ing Provid er: TOM Hartmann [email or web address] [facility] - [facility] Therapy [address], [place], [address], 02/18/2024 08:39:24 Result Notes None recorded. Problems Name Problem SNOMED Code Status Onset Date Resolution Date Notes Provider Name and Address Organization Details Recorded Time Arthritis 9124334 Active 2023 ALINA Gutierrez [facility] [place] 14:21:50 Hypertensiv e disorder 06408677 Active 2023 Elsiebrit wiggins, ALINA Kiran LPNT [facility] & [place] 14:22:10 Malignant tumor of breast 570022388 Completed 202312/10/2023 Elsie wiggins, ALINA TOLLIVER [facility] & [place] 13:36:55 Problem Notes None recorded. Procedures Surgical History Date Name Laterality Status Provider Name and Address Organization Details Recorded Time removal of sebaceous cyst completed Elsie FULLER SHAREE [facility] & [place] 06/11/2023 14:23:43 arthroplasty of knee completed Elsiebrit TOLLIVER [facility] & [place] 06/11/2023 14:24:04 excision of bilateral breasts completed Elsie TOLLIVER [facility] & [place] 12/10/2023 13:38:38 Imaging Results None recorded. Procedure Notes None recorded. Medical Equipment None Reported. Allergies No known drug allergies Medications Name Sig Start Date Stop Date Status Note LastModified by Organization Details LastModified Time celecoxib 200 mg capsule TAKE 1 CAPSULE BY MOUTH ONCE DAILY active Not Available Not Available No t Available amoxicillin 500 mg capsule TAKE 1 CAPSULE BY MOUTH EVERY 8 HOURS FOR 7 DAYS 06/10 completed Not Available Not Available Not Available promethazin e-DM 6.25 mg-15 mg/5 mL oral syrup TAKE 5 ML BY MOUTH EVERY 6 HOURS NEEDED 06/10 completed Not Available Not Available Not Available azithromyci n 250 mg tablet TAKE 2 TABLETS BY MOUTH ON DAY 1, AND THEN TAKE 1 TABLET BY MOUTH ONCE A DAY ON DAY 2 THROUGH DAY 5 06/10 completed Not Available Not Available Not Available lisinopril 20 mg tablet TAKE 1 TABLET BY MOUTH ONCE DAILY active Not Available Not Available No t Available meclizine 12.5 mg tablet active Not Available Not Available Not Available ciprofloxac in 250 mg tablet TAKE 1 TABLET BY MOUTH EVERY 12 HOURS FOR 7 DAYS 06/10 completed Not Available Not Available Not Available levofloxaci n 250 mg tablet TAKE 1 TABLET BY MOUTH ONCE DAILY FOR 10 DAYS 06/10 completed Not Available Not Available Not Available methenamine hippurate 1 gram tablet Take 1 tablet twice a day by oral route as needed for 30 days. active Not Available Not Available No t Available ropinirole 0.25 mg tablet TAKE TABLET BY MOUTH AT BEDTIME, 1-3 HOURS BEFORE BEDTIME 06/10 completed Not Available Not Available Not Available meclizine 25 mg tablet TAKE 1 TABLET BY MOUTH EVERY 8 HOURS NEEDED active Not Available Not Available No t Available amlodipine 10 mg tablet TAKE 1 TABLET BY MOUTH ONCE DAILY active Not Available Not Available No t Available dexamethaso ne 2 mg tablet TAKE 1 TABLET BY MOUTH EVERY 12 HOURS FOR 5 DAYS 06/10 completed Not Available Not Available Not Available methylpredn isolone 4 mg tablets in a dose pack TAKE BY MOUTH DIRECTED ON INSIDE OF PACKAGE 06/10 completed Not Available Not Available Not Available albuterol sulfate HFA 90 mcg/actuati on aerosol inhaler INHALE 2 PUFFS BY MOUTH EVERY 6 HOURS NEEDED active Not Available Not Available No t Available oxycodone 5 mg tablet active Not Available Not Available No t Available nitrofurant oin monohydrate /macrocryst als 100 mg capsule TAKE 1 CAPSULE BY MOUTH EVERY 12 HOURS WITH FOOD FOR 10 DAYS 08/07 completed Not Available Not Available Not Available hydrochloro thiazide 12.5 mg tablet TAKE 1 TABLET BY MOUTH ONCE DAILY IN THE MORNING active Not Available Not Available No t Available Vitals Date Recorded Body height Body mass index (BMI) Body weight Body temperature Systolic blood pressure Diastolic blood pressure Provider Name and Address Organization Details Last Updated DateTime 4 152.4 cm 27.1 kg/m2 32011.3 4 g 97 [degF] 118 mm[Hg] 68 mm[Hg] Elsie Sandra [place] - LPNT [facility] & [place] 4 14:45:29 Date Recorded Body height Body mass index (BMI) Body weight Body temperature Systolic blood pressure Diastolic blood pressure Provider Name and Address Organization Details Last Updated DateTime 4 152.4 cm 28.5 kg/m2 74937.4 9 g 97 [degF] 122 mm[Hg] 74 mm[Hg] Elsie FULLER [facility] 4 13:54:53 Date Recorded Body height Body mass index (BMI) Body weight Body temperature Oxygen saturation Oxygen saturation in Arterial blood by Pulse oximetry Heart rate Provider Name and Address Organization Details Last Updated DateTime 4 152.4 cm 27.3 kg/m2 69639.9 3 g 97.7 [degF] 100 % 100 % 70 /min Elsie [facility] [place] 4 13:39:41 Social History None recorded. Functional Status Question Answer Note LastModified by Organizat ion Details LastModified Time Do you use any illicit or recreational drugs? No Information not available 06/11/2023 What is your level of alcohol consumption? None Information not available 06/11/2023 Mental Status None recorded. Family History Nothing Reported Notes:Mother-cancer father- kidney failure sister-diabetes Medical History No medical history recorded. Gynecological HistoryNo gynecological history recorded. Obstetrics History GPAL:G 0 P 0 0 0 0 Past Encounters Encounter ID Performer Location Encounter Start Date Encounter Closed Date Diagnosis/Indication Diagnosis SNOMED-CT Code Diagnosis ICD10 Code Diagnosis Note [id number] Chrissie Santos NP, S [facility] [address] [place] [address],[address] [address] 06/11/2023 13:41:41 06/11/2023 15:00:23 Recurrent urinary tract infection 450655623 N39.0 UA clearActiv e bowel habits, probiotics , cranberry supplement s Qday-tid, and wipe front to back. Schedule Renal US and KUBStart Methenamin e 1gram bid RTC in 8 weeks for f/u of diagnostic test results and Methenamin e ttx Nocturia 144763856 R35.1 Mixed urin huseyin incontinence 299712328 N39.46 [id number] Chrissie Santos NP, S [facility] [address] [place] [address],[address] [place] [address] 08/08/2023 13:39:35 08/08/2023 14:00:59 Recurrent urinary tract infection 797473014 N39.0 UA clearRenal US results reviewed and discussed with pt in clinic. Schedule f/u Renal US in 6 monthsCont inue Methenamin e 1gram bidRTC in 4 months for f/u Nocturia 491951025 R35.1 Urinary incontinence 165 702763 R32 Cyst of kidney 245040627 N28.1 [id number] Chrissie Santos, COLLIN, S [facility]-[address] [place] [address] 12/10/2023 13:18:30 12/10/2023 14:02:09 Recurrent urinary tract infection 948610802 N39.0 Unable to provide urine samplePt doing well without any UTI like sxsContinu e Methenamin e 1bram bidRTC in 1 year for f/u Nocturia 282976398 R35.1 Urinary incontinence 165 163907 R32 Cyst of kidney 045615320 N28.1 Will have Renal US in February 2024 Health Concerns Section Related Observation LastModified by Organization Detai ls LastModified Time None Recorded Concern Status LastModified by Organization Details LastModified Time None Recorded Advance Directives Directive None Recorded Payers Insurance Date Sequence Insurance Name Policy Number Policy [place] Covered Member ID [place] Member ID Guarantor Name 12/14/2023 1 [employer] (MEDICARE REPLACEMENT/ ADVANTAGE - PPO) Trish Magana [id number] Trish Magana Notes Date Note Type Note Provider Name and Address Organization Details Recorded Time 06/11/2023 text/html 83 yowf presents to the office for evaluation of reoccurring UTIs. Location is LUT. Quality is pressure and painful urination. Severity- varies. Reports that she started experiencing reoccurring UTI's approx 1 year ago, has had 5 UTIs over 1 year, last UTI was on 04/18/2023. UTIs have all been treated with antibiotics, sxs typically improve after 2-3 days being on antibiotic ttx. When experiences UTI has dysuria, urinary urgency/frequency and at times will be asymptomatic. Has not had any diagnostic tests performed. Urine culture on 04/18/2023 revealed Aerococcus Urinae and Streptococcus Agalactiae. Urine culture on 04/04/2023 revealed Aerococcus Urinae. Currently, states f/c stream good, nocturia x2, bowels move regularly (will have occ fecal incontinence), bladder empties thoroughly; currently denies any dysuria, gross hematuria, flank pain, fevers, chills, nausea, or vomiting. States has mixed urinary incontinence. No h/o DM. No h/o hysterectomy. Denies any h/o kidney stones. Chrissie Santos NP, S [address] , [place], [address], [facility] 06/11/2023 15:06:45 08/08/2023 text/html 83 yowf RTC for 8 week f/u of Recurrent UTIs. Renal ultrasound on 08/06/2023 revealed bilateral renal atrophy and a right renal cyst measuring 2.6 cm. At last visit on 06/11/2023, pt was started on Methenamine 1gram bid. Reports she is tolerating the medication without any overt SEs. Denies any UTI or UTI like sxs. Currently, states f/c stream good, nocturia x2, bowels move regularly (will have occ fecal incontinence), bladder empties thoroughly; currently denies any dysuria, gross hematuria, flank pain, fevers, chills, nausea, or vomiting. States has mixed urinary incontinence wears a panty liner changes this maybe 1 time a day. Chrissie Santos NP, [address] , [place], [address], [facility] & [place] 08/08/2023 14:06:06 12/10/2023 text/html 83 yowf RTC for 4 month f/u of Recurrent UTIs. Reports since last visit on 08/08/2023 she has not experienced any UTIs or UTI like sxs. Pt is managed with Methenamine 1 gram bid. Renal ultrasound on 08/06/2023 revealed bilateral renal atrophy and a right renal cyst measuring 2.6 cm. States f/c stream good, nocturia x2, bowels move regularly (will have occ fecal incontinence), bladder empties thoroughly; currently denies any dysuria, gross or gross hematuria. States has mixed urinary incontinence wears a panty liner changes this maybe 1 time a day. Chrissie Santos, COLLIN, S [address] [facility], [place], [address], [facility] [place] [facility] [place] 12/10/2023 14:06:13 OBGyn Episode No OBEpisode recorded.
--- NOTE | 2024-08-13 14:49 | A.OFFVIS_ITS ---
[facility] Disclaimer: The information contained in this section may have been updated after the patient was seen, as this information can be updated by other users. Medical History (Updated 07/16/24 @ 14:03 by Gema Cotton APRN) Bilateral impacted cerumen Hx of breast cancer Dizziness Sacroiliitis Impacted cerumen of right ear Hyperlipidemia Surgical History Hx of bilateral mastectomy Family History Other Unknown family medical history Social History Smoking Status: Never smoker second hand exposure: No alcohol intake: never substance use type: denies use current occupational status: other Travel in the last 8 weeks?: None household members: spouse housing: house current occupational exposures/hazards: No caffeine: Yes Have you lived/traveled outside [place] in past 30 days?: No Contact w/someone who lives/traveled outside [place] past 30 days?: No Exposure to someone with infectious disease in past 14 days?: No Do you have a fever (greater than 100.4 F or 38 C)?: No Have you tested positive for COVID-19?: No Exposed to someone with COVID-19 in past 14 days?: No Do you have a sore throat?: No Do you have a cough?: No Do you have any weakness?: No Do you have any diarrhea?: No Are you experiencing any unusual bleeding?: No Do you have any muscle aches/pain?: No Do you have any abdominal pain?: No Are you experiencing loss of taste or smell?: No PM Subjective & Objective Subjective Subjective:: Patient is a pleasant 84-year-old female who presents today for follow-up. Today she rates her pain a 5 out of 10. She denies any new trauma or injury. She does state that she is still experiencing the same pain there with her left shoulder. She states from our last visit that she has still not heard anything from Dr. Arellano's office. Patient does states she still would like to see what he has to say before deciding to proceed forward with additional injections. Her Sergio has been reviewed and is appropriate. Review of Systems: General: No recent weight changes, no fever, no sleep disturbances Respiratory: No cough, no shortness of air, no recurring pulmonary infections Cardiovascular/peripheral vascular: No chest pain, no palpitations, no edema, no shortness of breath Gastrointestinal: No new onset incontinence, normal bowel movements reported Genitourinary: No new onset incontinence Musculoskeletal: Left shoulder pain Psychiatric: [Normal mood/affect] Neurological: [Denies weakness in extremities], [denies balance issues] Pain at rest (0-10 scale): 5 Objective Objective:: Physical Exam: General: Alert and oriented x3, no acute distress, pleasant and cooperative Lungs: Respirations even and unlabored, symmetrical chest expansion Eyes: PERRL Musculoskeletal: Flexion and extension of left shoulder somewhat guarded secondary to pain Neurological: Speech clear, no gross sensory deficit Has patient had previous pain injection?: No Conservative treatment options previously tried: Home exercise plan Length of treatment: Longer than 12 weeks Meds Home Medications and Allergies Home Medications ?Medication ?Instructions ?Recorded ?Confirmed ?Type amlodipine 10 mg tablet 10 mg PO DAILY High blood pr essure 07/03/17 07/16/24 History 90 days celecoxib 200 mg capsule 200 mg PO DAILY Arthritis 90 days 07/03/17 07/16/24 History lisinopril 20 mg tablet 20 mg PO DAILY High blood pr essure 07/03/17 07/16/24 History 90 days methenamine hippurate 1 gram tablet 0.5 g PO BID 08/1507/16/24 History New Prescriptions to Start Prescriptions: Allergies Allergy/AdvReac Type Severity Reaction Status Date / Time No Known Allergies Allergy Verified 04/28/24 09:14 Assessment and Plan *Assessment and plan (1) Rotator cuff tear, left: Status: Acute Category: Medical Code(s): M75.102 - Unspecified rotator cuff tear or rupture of left shoulder, not specified as traumatic Plan I did discuss with the patient that I will personally reach out to Dr. Arellano and see whether or not if he can get us an update on her referral. Patient did also request that we give her home phone number instead of her cell phone. Patient states that if they have been trying to call that number that she does not have voicemail set up and this could be the issue. We will let the patient contact as for her next follow-up. Patient agrees with this plan of care. Patient has been instructed to contact the clinic with any concerns before the next appointment. Dr. Elizondo has reviewed this note and agrees with this plan of care. This note was dictated using voice recognition software and make contain errors or omissions. All injections are used with Lidocaine, Bupivacaine and dexamethasone. Occasionally urine drug screen is needed to verify patient's compliance with our office pain contract. This is ordered based off specific treatments related to chronic pain with the potential to abuse certain medications.
[2024-08-13 14:55] VITALS: BP 122/65; PULSE 80; RESP 18; O2SAT 96; BMI 29.2
== END 2024-08-13 23:59 | disposition home or self-care (01) ==
LOC: SC.PAIN 13:36
PROVIDERS: PCP Family Medicine; Visit Provider Nurse Practitioner Family
DX: M75.102 Unspecified rotator cuff tear or rupture of left shoulder, not specified as traumatic (principal)
CPT/HCPCS: 99212; G0463

== ENCOUNTER 2025-01-01 10:31 | Outpatient (RCR) | payer MEDICARE, SELFPAY | END 2025-01-01 23:59 | disposition home or self-care (01) | LOC: PT 10:31 | PROVIDERS: PCP Family Medicine; Visit Provider Physician Assistant Medical | DX: Z47.89 Encounter for other orthopedic aftercare (principal); Z96.652 Presence of left artificial knee joint | CPT/HCPCS: 97162 ==

== ENCOUNTER 2025-01-28 14:00 | Outpatient (RCR) | payer MEDICARE, SELFPAY | END 2025-01-28 23:59 | disposition home or self-care (01) | LOC: PT 14:00 | PROVIDERS: PCP Family Medicine; Visit Provider Physician Assistant Medical | DX: Z47.89 Encounter for other orthopedic aftercare (principal); Z96.652 Presence of left artificial knee joint | CPT/HCPCS: 97110; 97140 ==

== ENCOUNTER 2025-03-04 14:00 | Outpatient (RCR) | payer MEDICARE, SELFPAY | END 2025-03-04 23:59 | disposition home or self-care (01) | LOC: PT 14:00 | PROVIDERS: PCP Family Medicine; Visit Provider Physician Assistant Medical | DX: Z47.89 Encounter for other orthopedic aftercare (principal); Z96.652 Presence of left artificial knee joint | CPT/HCPCS: 97110; 97140; 97530 ==